=== PATIENT | male | born 1985 | race Caucasian/White ===

== ENCOUNTER 2016-09-11 08:26 | Day surgery (SDC) | payer MEDICAID, OTHER ==
[~2016-09-11] VITALS: Ht 193 cm; Wt 77.7 kg
[~2016-09-11 08:26] MED LIST: APIX2.5T PO; FERR325T PO; NORC5TAB PO; PROM2INJ; PROT40TA PO; VENTAER INH; ZANT150T2 PO; ZOFR4TAB PO; ZOLO100T PO
[2016-09-11 08:50] VITALS: BP 130/78; PULSE 97; RESP 20; TEMP 97.9; O2SAT 99
[2016-09-11] MEDS ORDERED: UNIS25TA2 PO ×2 (08:53→08:59)
[2016-09-11] MEDS ORDERED: MULT-135 PO ×2 (08:53→08:59)
[2016-09-11] MEDS ORDERED: NAPR220T95 PO ×2 (08:53→08:59)
[2016-09-11] MEDS ORDERED: FERR325T PO (08:59)
[2016-09-11] MEDS ORDERED: VENTAER INH (08:59)
[2016-09-11] MEDS ORDERED: NORC5TAB PO (08:59)
[2016-09-11] MEDS ORDERED: APIX2.5T PO (08:59)
[2016-09-11] MEDS ORDERED: PROM25TA5 INJ (09:01)
[2016-09-11] MEDS ORDERED: PROT40TA PO (09:01)
[2016-09-11] MEDS ORDERED: SERT-129 PO (09:01)
[2016-09-11] MEDS ORDERED: ZOFR4TAB PO (09:01)
[2016-09-11 09:53] LABS: APTT (PATIENT) 31.5 SEC (24.3-30.1); PROTHROMBIN TIME - PATIENT 11.4 SEC (9.8-11.6)
[2016-09-11] MEDS ORDERED: POVIDONE IODINE 5% (ANTISEPSIS KIT) 4 APPLICATIONS EACH NARE SCH ×2 (10:00)
[2016-09-11] MEDS ORDERED: CHLORHEXIDINE GLUCONATE 2 % 1 PACK (2 CLOTHS) TOPICAL SCH ×2 (10:00)
[2016-09-11] MEDS ORDERED: ceFAZolin 2 GM PREMIX 50 ML - implanted port/tunneled catheter insertion IV SCH ×2 (10:00)
[2016-09-11] MEDS ORDERED: SODIUM CHLORIDE 0.9% 1000 ML IV SCH ×2 (10:00)
[2016-09-11] MEDS ORDERED: VANCOMYCIN 1000 MG/NS 250 ML - implanted port/tunneled catheter IV SCH ×4 (10:00)
[2016-09-11] MEDS ORDERED: MIDAZOLAM HCL 5 MG/5 ML VIAL ONE (10:26)
[2016-09-11] MEDS ORDERED: fentaNYL CITRATE 250 MCG/5 ML AMP ONE (10:27)
[2016-09-11] MEDS ORDERED: LIDOCAINE 1%/EPINEPHrine 1:100,000 SOLN 20 ML VIAL ONE (10:45)
[2016-09-11] MEDS ORDERED: MIDAZOLAM HCL 2 MG/2 ML VIAL ONE (11:10)
[2016-09-11 12:15] VITALS: BP 131/81; PULSE 107; RESP 20; TEMP 98; O2SAT 98
--- NOTE | 2016-09-11 12:15 | PD.RAD ---
Post Procedure Progress Note Pre Procedure Diagnosis: (1) Mass of upper lobe of right lung (2) Mediastinal mass Post Procedure Diagnosis: (1) Mass of upper lobe of right lung (2) Mediastinal mass Procedure Date: Sep 11, 2016 Supervising Radiologist: Pito Fernandes Proceduralist/Assist: RT Ryley(R)() Anesthesia: Local, Conscious Sedation Plan of Activity Patient to Unit: ROPU Patient Condition: Good See PACS Report for procedural detail/treatment Pito Fernandes MD Sep 11, 2016 12:15
[2016-09-11] MEDS ORDERED: IOHEXOL 350 MG/ML 50 ML BTL (for RAD DIAG) IV ONE (12:22)
[2016-09-11 12:30] VITALS: BP 138/74; PULSE 104; RESP 20; O2SAT 98
[2016-09-11 12:45] VITALS: BP 108/62; PULSE 104; RESP 20; O2SAT 98
[2016-09-11 13:15] VITALS: BP 121/77; PULSE 105; RESP 20; O2SAT 98
[2016-09-11 13:54] VITALS: BP 117/70; PULSE 102; RESP 20; O2SAT 99
--- NOTE | 2016-09-11 14:21 | RADRPT ---
EXAM DATE/TIME: 09/11/2016 10:24 [facility] COMPARISON: No previous studies available for comparison. INDICATIONS : Patient with a history of lung cancer, needs chemotherapy. 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 Vancomycin within 2 hours of procedure, Ancef (or alternative) within 1 hour of procedure. DEVICE: 1. 8 Kazakh single lumen Bard Power Port PROCEDURE : 1. Continuous pulse oximetry and EKG monitoring. 2. Intravenous conscious sedation. 3. Ultrasound guidance for venous access. 4. Fluoroscopic guided implantable central venous port placement. The patient was placed supine. The neck was prepped in sterile fashion. Full sterile technique was u sed, including cap, mask, sterile gloves and gown, and a large sterile sheet. Hand hygiene and 2% ch lorhexidine Betadine was utilized per protocol for cutaneous antisepsis with appropriate dry time for site. The skin and subcutaneous tissues were infiltrated with local anesthetic solution. Under direct ultrasound guidance, central venous access was accomplished in the left internal jugular vein. A wire or catheter could not be advanced into the brachiocephalic vein, superior vena cava or right atrium. A venogram performed demonstrates central venous occlusion of the left brachiocephalic vein and superior vena cava. The venogram demonstrated an enlarged left-sided internal mammary vein w hich was selectively catheterized. With no other venous access available the port tubing was placed i nto the enlarged internal mammary vein. The ultrasound images depicting access guidance were stored a nd saved to PACS for permanent record. A subcutaneous pocket was created using blunt dissection. Th e port was introduced to the pocket. The catheter tubing was fed through a subcutaneous tunnel to th e venotomy site. The catheter tubing was cut to a suitable length and then was introduced through a valved Peel-Away sheath and positioned with catheter tubing tip in the mid to distal left internal ma mmary vein. The port was then tested for access. Blood was easily aspirated and the port was easily f lushed with saline. The pocket incision was closed with subcuticular Vicryl suture. Steri-Strips wer e applied. The port was flushed and locked with heparin solution per protocol. Sterile dressing was applied to the site. The patient tolerated the procedure well. Conscious sedation was performed with the prescribed dosages and duration as above. The patient cirilo ated the procedure well and there were no complications. EKG and oximetry remained stable throughout the procedure. The patient was sent to post anesthesia recovery in stable condition. CONCLUSION: Uncomplicated ultrasound and fluoroscopic guided implanted central venous port catheter placement as described in detail above. An 8 Kazakh Power port was placed. Venogram demonstrates central venous occlusion. Tip of port was placed in an enlarged left internal mammary vein. Port aspirated and flushed easily following the procedure. Pito Fernandes MD on September 11, 2016 at 14:06 Board Certified Radiologist. This report was verified electronically.
== END 2016-09-11 14:15 | disposition home or self-care (01) ==
LOC: HROP 08:26 → HRIP 08:28 → HROP 14:15
PROVIDERS: ATTEND Internal Medicine Hematology & Oncology
DX: Z45.2 Encounter for adjustment and management of vascular access device (principal); C34.11 Malignant neoplasm of upper lobe, right bronchus or lung; J45.909 Unspecified asthma, uncomplicated
CPT/HCPCS: 36561; 76937; 77001; 85610; 85730; 99152; 99153; C1769; C1788; C1887; J0690; J1642; J2250; J3010; J3370; J7030; J7050; Q9967

== ENCOUNTER 2016-09-26 07:45 | Day surgery (SDC) | payer MEDICAID, OTHER ==
[~2016-09-26] VITALS: Ht 193 cm; Wt 77.0 kg
[~2016-09-26 07:45] MED LIST changes: +MULT-135 PO; +NAPR220T95 PO; +PROM25TA5 INJ; -PROM2INJ; +SERT-129 PO; +UNIS25TA2 PO; -ZANT150T2 PO; -ZOLO100T PO
[2016-09-26 07:56] VITALS: BP 131/69; PULSE 92; RESP 20; TEMP 98.1; O2SAT 99
[2016-09-26] MEDS ORDERED: SODIUM CHLOR 0.9% 1000 ML IV SCH (08:30)
[2016-09-26 08:48] LABS: AUTOMATED NEUTROPHIL # 3.5 TH/MM3 (1.8-7.7); BASOPHIL % 0.3 % (0.0-2.0); EOSINOPHIL # 0.1 TH/MM3 (0-0.4); EOSINOPHIL % 2.3 % (0.0-4.0); HEMATOCRIT 30.7 % (39.0-51.0); HEMO FLAGS DIFF FINAL; LYMPH % 8.7 % (9.0-44.0); LYMPHOCYTE # 0.4 TH/MM3 (1.0-4.8); MEAN CELL VOLUME 88.3 FL (80.0-100.0); MEAN CORPUSCULAR HEMOGLOBIN 30.6 PG (27.0-34.0); MEAN CORPUSCULAR HGB CONC 34.7 % (32.0-36.0); MONO % 14.2 % (0.0-8.0); NEUT % 74.5 % (16.0-70.0); PLATELET COUNT 318 TH/MM3 (150-450); RED BLOOD COUNT 3.47 MIL/MM3 (4.50-5.90); RED CELL DISTRIBUTION WIDTH 17.9 % (11.6-17.2); WHITE BLOOD COUNT 4.7 TH/MM3 (4.0-11.0)
[2016-09-26 08:57] LABS: APTT (PATIENT) 31.9 SEC (24.3-30.1); PROTHROMBIN TIME - PATIENT 11.5 SEC (9.8-11.6)
[2016-09-26] MEDS ORDERED: LIDOCAINE 1%/EPINEPHrine 1:100,000 SOLN 20 ML VIAL ONE (09:27)
[2016-09-26] MEDS ORDERED: MIDAZOLAM HCL 5 MG/5 ML VIAL ONE (09:46)
[2016-09-26] MEDS ORDERED: fentaNYL CITRATE 250 MCG/5 ML AMP ONE (09:47)
--- NOTE | 2016-09-26 10:31 | PD.RAD ---
Post CT Procedure Prog Note Pre Procedure Diagnosis: (1) Mass of upper lobe of right lung (2) Adenocarcinoma Post Procedure Diagnosis: (1) Adenocarcinoma (2) Mass of upper lobe of right lung Procedure Date: Sep 26, 2016 Supervising Radiologist: Jimenez Srivastava Proceduralist/Assist: Angelika Anglin RT(R)(CT) Anesthesia: Local, Conscious Sedation Plan of Activity Patient to Unit: ROPU Patient Condition: Good See PACS Report for procedural detail/treatment Biopsy Imaging Guidance: CT Side: Left Biopsy Procedure: Soft Tissue Site: left 9th rib/chest wall mass Specimen: Core Biopsy Additional Detail: 16 Ga x 3 Jimenez Srivastava MD Sep 26, 2016 10:31
[2016-09-26 10:35] VITALS: BP 122/77; PULSE 102; RESP 16; TEMP 97.1; O2SAT 99
[2016-09-26 10:50] VITALS: BP 116/68; PULSE 93; RESP 16; O2SAT 98
[2016-09-26] MEDS ORDERED: oxyCODONE/ACETAMINOPHEN 5 MG/325 MG TAB PO PRN (11:00)
[2016-09-26 11:10] VITALS: BP 102/75; PULSE 102; RESP 16; O2SAT 99
--- NOTE | 2016-09-26 11:11 | RADRPT ---
EXAM DATE/TIME: 09/26/2016 10:01 [facility] COMPARISON: No previous studies available for comparison. INDICATIONS : Left 9th rib biopsy. SEDATION TIME: 30 minutes BIOPSY SITE: Left posterior ninth rib/chest wall soft tissue mass MEDICATION(S): 1.) 2 mg midazolam (Versed) IV 2.) 100 mcg fentanyl (Sublimaze) IV DEVICE(S): 1.) 16 gauge Temno core biopsy needle MEDICAL HISTORY : Carcinoma, lung. SURGICAL HISTORY : None. ENCOUNTER: Initial ACUITY: 1 day PAIN SCORE: 5/10 LOCATION: Left chest A total of three core specimen(s) were obtained and sent to the laboratory for pathologic evaluation. PROCEDURE: 1. CT guided lung biopsy. 2. Conscious sedation with continuous EKG and oximetry monitoring. 3. EKG and oximetry remained stable throughout the procedure. Prior to the procedure informed consent was obtained. Any appropriate prior imaging studies were rev iewed. The site was prepped in a sterile fashion. Full sterile technique was used, including cap, mask, mando rile gloves and gown and a large sterile sheet. Hand hygiene and 2% chlorhexidine and/or betadine/al cohol prep was utilized per protocol for cutaneous antisepsis. The skin and subcutaneous tissues wer e infiltrated with local anesthetic solution. With CT guidance the previously identified target was localized. Biopsy was performed using the presc ribed needle as above. Adequate hemostasis was obtained with compression at the puncture site. Follow-up CT scan reveals no hemorrhage. The patient tolerated the procedure well and there were no complications. The patient was returned to the Radiology Outpatient Unit in stable condition. CONCLUSION: Uncomplicated CT guided biopsy. Jimenez Srivastava MD on September 26, 2016 at 11:08 Board Certified Radiologist. This report was verified electronically.
[2016-09-26 11:30] VITALS: BP 108/75; PULSE 96; RESP 16; O2SAT 99
[2016-09-26 12:15] VITALS: BP 116/67; PULSE 89; RESP 18; O2SAT 100
[2016-09-26] MEDS ORDERED: Infusaport/Implanted VAD PRN NS Lock Flush IVF (12:45)
== END 2016-09-26 12:30 | disposition home or self-care (01) ==
LOC: HRIP 07:45 → HRAD 07:45 → EDSTATUS 08:00 → HRAD 12:30
PROVIDERS: ATTEND Internal Medicine Hematology & Oncology
DX: C79.51 Secondary malignant neoplasm of bone (principal); C34.90 Malignant neoplasm of unspecified part of unspecified bronchus or lung; Z79.01 Long term (current) use of anticoagulants
CPT/HCPCS: 20225; 77012; 85025; 85610; 85730; 88305; 99152; 99153; J1642; J2250; J3010

== ENCOUNTER 2016-10-24 12:57 | Day surgery (SDC) | payer MEDICAID, OTHER ==
[2016-10-24 13:13] VITALS: BP 114/73; PULSE 75; RESP 20; TEMP 97.6; O2SAT 99
[2016-10-24] MEDS ORDERED: ALTEPLASE RECOMBINANT 2 MG VIAL ONE (14:26)
[2016-10-24] MEDS ORDERED: IOHEXOL 350 MG/ML 50 ML BTL (for RAD DIAG) IV ONE (14:31)
--- NOTE | 2016-10-24 14:37 | PD.RAD ---
Post Procedure Progress Note Pre Procedure Diagnosis: (1) Mass of upper lobe of right lung Post Procedure Diagnosis: (1) Mass of upper lobe of right lung Procedure Date: Oct 24, 2016 Supervising Radiologist: Pito Fernandes Proceduralist/Assist: Del Armenta, RT(R), Giovanna Devine RT(R)(CV) Plan of Activity Patient to Unit: ROPU Patient Condition: Fair See PACS Report for procedural detail/treatment Central Venous Access Device Procedure 1 Left Infusaport Evaluation single lumen Lao: 8 Pito Fernandes MD Oct 24, 2016 14:37
--- NOTE | 2016-10-24 17:47 | RADRPT ---
EXAM DATE/TIME: 10/24/2016 13:16 [facility] COMPARISON: No previous studies available for comparison. INDICATIONS : Patient presents with lung cancer in need of port patency injection due to inability for blood return . 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 Access of [id number]. 2. Port patency injection. The risks, benefits and alternatives to the procedure were explained and verbal and written consent w as obtained. The patient was placed supine. The port was prepped in sterile fashion. Full sterile t echnique was used, including cap, mask, sterile gloves and gown, and a large sterile sheet. Hand hyg iene and 2% chlorhexidine prep was utilized per protocol for cutaneous antisepsis with appropriate dr y time for site. The previously placed port was accessed and positive contrast was injected for evaluation. Injection demonstrates intraluminal location of the Fsbkap-m-Vlzv however there is evidence of filling defect surrounding the catheter characteristic of thrombus or developing fibrin sheath. 2 mg of cath-shana was administered CONCLUSION: Fnkgxk-o-Asaz remains intraluminal in location however fibrin sheath versus thrombus is identified surrounding the tip of the catheter. Good distal flow was identified during the injecti on. Port was treated with Cathflo Pito Fernandes MD on October 24, 2016 at 17:42 Board Certified Radiologist. This report was verified electronically.
== END 2016-10-24 15:50 | disposition home or self-care (01) ==
LOC: HROP 12:57 → HRIP 12:58 → HROP 15:50
PROVIDERS: ATTEND Internal Medicine Hematology & Oncology
DX: Z45.2 Encounter for adjustment and management of vascular access device (principal); C34.90 Malignant neoplasm of unspecified part of unspecified bronchus or lung; C79.51 Secondary malignant neoplasm of bone; G91.9 Hydrocephalus, unspecified; J45.909 Unspecified asthma, uncomplicated; K21.9 Gastro-esophageal reflux disease without esophagitis; F32.9 Major depressive disorder, single episode, unspecified; F41.9 Anxiety disorder, unspecified
CPT/HCPCS: 36598; J1642; J2997; Q9967

== ENCOUNTER 2016-11-03 17:55 | Emergency (ER) | payer MEDICAID, OTHER ==
[~2016-11-03] VITALS: Ht 193 cm; Wt 80.0 kg
[2016-11-03 17:56] VITALS: BP 141/78; PULSE 92; RESP 18; TEMP 98.5; O2SAT 98
[2016-11-03 18:22] VITALS: BP 131/82; PULSE 83; RESP 15; O2SAT 98
[2016-11-03] MEDS ORDERED: SODIUM CHLORIDE 0.9% FLUSH 10 ML FLUSH IVF PRN (18:30)
--- NOTE | 2016-11-03 18:35 | PD ---
HPI Chief Complaint: Chest Pain Time Seen by Provider: 18:26 Travel History International Travel<30 days: No Contact w/Intl Traveler<30days: No Traveled to known affect area: No History of Present Illness HPI 31-year-old male with history of stage IV adenocarcinoma lung cancer, presents to the ER sent in by his oncologist, Dr. Coughlin, for evaluation of a few days history of chest pains which she currently rates it a 2 out of 10. Worse with exertion and movements, states that he it gets up to a 6 out of 10 at times. He complains of dyspnea on exertion. He denies any coughing, fevers, or any other symptoms. He states the chest pain started in the left side and then moved over to the right side. Modifying Factors: Worse with exertion Associated Signs & Symptoms: Shortness of breath and chest pain Risk Factors: Lung cancer history PFSH Past Medical History Anxiety: Yes Depression: Yes Cancer: No Cardiovascular Problems: No Chemotherapy: Yes (OCTOBER 20, 2016) Diabetes: No Diminished Hearing: No Endocrine: No Genitourinary: No Hiatal Hernia: No Immune Disorder: No Musculoskeletal: No Neurologic: Yes (HYDROCEPHALIS) Psychiatric: Yes Reproductive: No Respiratory: Yes (POSSIBLE ASTHMA) Immunizations Current: Yes Radiation Therapy: Yes Thyroid Disease: No Influenza Vaccination: Yes Past Surgical History Abdominal Surgery: No AICD: No Body Medical Devices: [employer]GER SHUNT Cardiac Surgery: No Ear Surgery: No Eye Surgery: No Genitourinary Surgery: No Gynecologic Surgery: No Joint Replacement: No 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 Oxycodone (Oxycodone HCl) 5 Mg Cap 5 Mg PO Q4H PRN Ms Contin (Morphine Sulfate) 30 Mg Tab 30 Mg PO BID Sertraline (Sertraline HCl) 100 Mg Tab 100 Mg PO DAILY Phenergan (Promethazine HCl) 25 Mg Tab 25 Mg INJ Q6H PRN Protonix (Pantoprazole Sodium) 40 Mg Tab 40 Mg PO DAILY Zofran (Ondansetron HCl) 4 Mg Tab 4 Mg PO Q6HR PRN Aleve (Naproxen Sodium) 220 Mg Tab 220 Mg PO BID PRN Multi Vitamin (Multiple Vitamin) 1 Tab Tab 1 Tab PO DAILY Ferrous Sulfate 325 Mg Tab 325 Mg PO TID Unisom (Doxylamine Succinate (Sleep)) 25 Mg Tab 25 Mg PO HS PRN Eliquis (Apixaban) 2.5 Mg Tab 2.5 Mg PO BID Ventolin Hfa 18 GM Inh (Albuterol Sulfate) 90 Mcg/Act Aer 2 Puff INH Q4-6H PRN Review of Systems Except as stated in HPI: all other systems reviewed are Neg Physical Exam Narrative GENERAL: Thin middle age white male patient currently not in acute distress. Awake and oriented 3. SKIN: Warm and dry. HEAD: Atraumatic. Normocephalic. EYES: Pupils equal and round. No scleral icterus. No injection or drainage. ENT: No nasal bleeding or discharge. Mucous membranes pink and moist. NECK: Trachea midline. No JVD. CARDIOVASCULAR: Regular rate and rhythm. No murmur appreciated. Pulses are present and equal bilaterally. RESPIRATORY: No accessory muscle use. Clear to auscultation. Breath sounds equal bilaterally. GASTROINTESTINAL: Abdomen soft, non-tender, nondistended. Hepatic and splenic margins not palpable. MUSCULOSKELETAL: No obvious deformities. No clubbing. No cyanosis. No edema. NEUROLOGICAL: Awake and alert. No obvious cranial nerve deficits. Motor grossly within normal limits. Normal speech. PSYCHIATRIC: Appropriate mood and affect; insight and judgment normal. Data Data Last Documented VS Vital Signs Date Time Temp Pulse Resp B/P Pulse Ox O2 Delivery O2 Flow Rate FiO2 11/03/16 21:35 88 17 130/89 96 11/03/16 18:22 Room Air 11/03/16 17:56 98.5 Orders Electrocardiogram (11/03/16 ) Basic Metabolic Panel (Bmp) (11/03/16 18:26) B-Type Natriuretic Peptide (11/03/16 18:26) Ckmb (Isoenzyme) Profile (11/03/16 18:26) Complete Blood Count With Diff (11/03/16 18:26) Magnesium (Mg) (11/03/16 18:26) Prothrombin Time / Inr (Pt) (11/03/16 18:26) Act Partial Throm Time (Ptt) (11/03/16 18:26) Troponin I (11/03/16 18:26) Chest, Single Ap (11/03/16 18:26) Ecg Monitoring (11/03/16 18:26) Bilateral Bp Monitoring (11/03/16 18:26) Iv Access Insert/Monitor (11/03/16 18:26) Oximetry (11/03/16 18:26) Oxygen Administration (11/03/16 18:26) Sodium Chloride 0.9% Flush (Ns Flush) (11/03/16 18:30) Ct Pulmonary Angiogram (11/03/16 18:57) Iohexol 350 Inj (Omnipaque 350 Inj) (11/03/16 20:02) Labs Laboratory Tests Test 11/03/16 18:35 White Blood Count 3.3 TH/MM3 Red Blood Count 3.53 MIL/MM3 Hemoglobin 10.6 GM/DL Hematocrit 30.7 % Mean Corpuscular Volume 86.9 FL Mean Corpuscular Hemoglobin 29.9 PG Mean Corpuscular Hemoglobin 34.4 % Concent Red Cell Distribution Width 14.7 % Platelet Count 150 TH/MM3 Mean Platelet Volume 8.5 FL Neutrophils (%) (Auto) 68.6 % Lymphocytes (%) (Auto) 10.2 % Monocytes (%) (Auto) 18.2 % Eosinophils (%) (Auto) 2.9 % Basophils (%) (Auto) 0.1 % Neutrophils # (Auto) 2.3 TH/MM3 Lymphocytes # (Auto) 0.3 TH/MM3 Monocytes # (Auto) 0.6 TH/MM3 Eosinophils # (Auto) 0.1 TH/MM3 Basophils # (Auto) 0.0 TH/MM3 CBC Comment DIFF FINAL Differential Comment Prothrombin Time 11.8 SEC Prothromb Time International 1.1 RATIO Ratio Activated Partial 31.6 SEC Thromboplast Time Sodium Level 140 MEQ/L Potassium Level 3.8 MEQ/L Chloride Level 105 MEQ/L Carbon Dioxide Level 27.0 MEQ/L Anion Gap 8 MEQ/L Blood Urea Nitrogen 16 MG/DL Creatinine 0.74 MG/DL Estimat Glomerular Filtration 122 ML/MIN Rate Random Glucose 61 MG/DL Calcium Level 9.1 MG/DL Magnesium Level 2.0 MG/DL Total Creatine Kinase 41 U/L Troponin I LESS THAN 0.02 NG/ML B-Type Natriuretic Peptide 66 PG/ML MDM Medical Decision Making Medical Screen Exam Complete: Yes Emergency Medical Condition: Yes Medical Record Reviewed: Yes Interpretation(s) EKG shows NSR, no ST elevation or depression, and no arrhythmias. No significant T-wave inversions. Differential Diagnosis Chest pain and dyspnea on exertionworsening lung cancer versus ACS versus dysrhythmias versus pneumonia Narrative Course X-rays, EKG, lab workup was ordered for the patient. Physician Communication Physician Communication Case is signed out to Dr. Manzo at 7 PM awaiting workup for disposition. Diagnosis Primary Impression: Metastatic lung cancer (metastasis from lung to other site) Qualified Code: C34.90 - Metastatic lung cancer (metastasis from lung to other site), unspecified laterality Admitting Information Admitting Physician Requests: Admit Prasanth Preston MD Nov 03, 2016 18:35
[2016-11-03] MEDS ORDERED: OXYC1CAP PO (18:49)
[2016-11-03] MEDS ORDERED: FOLI400T PO (18:49)
[2016-11-03] MEDS ORDERED: MIRA33504 PO (18:49)
[2016-11-03] MEDS ORDERED: MS C30TA PO (18:49)
[2016-11-03 19:15] LABS: AUTOMATED NEUTROPHIL # 2.3 TH/MM3 (1.8-7.7); BASOPHIL % 0.1 % (0.0-2.0); EOSINOPHIL # 0.1 TH/MM3 (0-0.4); EOSINOPHIL % 2.9 % (0.0-4.0); HEMATOCRIT 30.7 % (39.0-51.0); HEMO FLAGS DIFF FINAL; LYMPH % 10.2 % (9.0-44.0); LYMPHOCYTE # 0.3 TH/MM3 (1.0-4.8); MEAN CELL VOLUME 86.9 FL (80.0-100.0); MEAN CORPUSCULAR HEMOGLOBIN 29.9 PG (27.0-34.0); MEAN CORPUSCULAR HGB CONC 34.4 % (32.0-36.0); MONO % 18.2 % (0.0-8.0); NEUT % 68.6 % (16.0-70.0); PLATELET COUNT 150 TH/MM3 (150-450); RED BLOOD COUNT 3.53 MIL/MM3 (4.50-5.90); RED CELL DISTRIBUTION WIDTH 14.7 % (11.6-17.2); WHITE BLOOD COUNT 3.3 TH/MM3 (4.0-11.0)
[2016-11-03 19:21] LABS: ANION GAP 8 MEQ/L (5-15); BLOOD UREA NITROGEN 16 MG/DL (7-18); CHLORIDE 105 MEQ/L (98-107); GLOMERULAR FILTRATION RATE 122 ML/MIN (>89); POTASSIUM 3.8 MEQ/L (3.5-5.1); SODIUM (NA) 140 MEQ/L (136-145)
[2016-11-03 19:25] LABS: CREATINE KINASE 41 U/L (39-308)
--- NOTE | 2016-11-03 19:27 | RADRPT ---
EXAM DATE/TIME: 11/03/2016 18:43 [facility] COMPARISON: [id number] PLCMT, POWERPORT, W US, RIGHT, September 11, 2016, 10:24. CT SIMULATION, September 25 7, 13:15. CHEST SINGLE AP, May 18, 2016, 9:48. INDICATIONS : Chest pain. MEDICAL HISTORY : None. SURGICAL HISTORY : None. ENCOUNTER: Initial ACUITY: 1 day PAIN SCORE: 4/10 LOCATION: chest FINDINGS: Mild reticular parenchymal density is seen in the right superhilar region and right apex with some sl ight pleural thickening suspected. There appears to be some volume loss. Contralateral left lung is g rossly clear. Heart size is stable and normal. Chest port is present on the left with tip extending i nto the mammary vein. CONCLUSION: Abnormal chest appearance as above Jimenez Srivastava MD on November 03, 2016 at 19:20 Board Certified Radiologist. This report was verified electronically.
[2016-11-03 19:34] LABS: APTT (PATIENT) 31.6 SEC (24.3-30.1); INTERNATIONAL NORMALIZED RATIO 1.1 RATIO; PROTHROMBIN TIME - PATIENT 11.8 SEC (9.8-11.6)
[2016-11-03] MEDS ORDERED: IOHEXOL 350 MG/ML 10 ML VIAL (for RAD DIAG) IV ONE (20:02)
--- NOTE | 2016-11-03 20:34 | PD ---
Physical Exam Narrative Patient was seen by ED physician and signed out to me. Data Data Last Documented VS Vital Signs Date Time Temp Pulse Resp B/P Pulse Ox O2 Delivery O2 Flow Rate FiO2 11/03/16 18:22 83 15 131/82 98 Room Air 11/03/16 17:56 98.5 Orders Electrocardiogram (11/03/16 ) Basic Metabolic Panel (Bmp) (11/03/16 18:26) B-Type Natriuretic Peptide (11/03/16 18:26) Ckmb (Isoenzyme) Profile (11/03/16 18:26) Complete Blood Count With Diff (11/03/16 18:26) Magnesium (Mg) (11/03/16 18:26) Prothrombin Time / Inr (Pt) (11/03/16 18:26) Act Partial Throm Time (Ptt) (11/03/16 18:26) Troponin I (11/03/16 18:26) Chest, Single Ap (11/03/16 18:26) Ecg Monitoring (11/03/16 18:26) Bilateral Bp Monitoring (11/03/16 18:26) Iv Access Insert/Monitor (11/03/16 18:26) Oximetry (11/03/16 18:26) Oxygen Administration (11/03/16 18:26) Sodium Chloride 0.9% Flush (Ns Flush) (11/03/16 18:30) Ct Pulmonary Angiogram (11/03/16 18:57) Iohexol 350 Inj (Omnipaque 350 Inj) (11/03/16 20:02) Labs Laboratory Tests Test 11/03/16 18:35 White Blood Count 3.3 TH/MM3 Red Blood Count 3.53 MIL/MM3 Hemoglobin 10.6 GM/DL Hematocrit 30.7 % Mean Corpuscular Volume 86.9 FL Mean Corpuscular Hemoglobin 29.9 PG Mean Corpuscular Hemoglobin 34.4 % Concent Red Cell Distribution Width 14.7 % Platelet Count 150 TH/MM3 Mean Platelet Volume 8.5 FL Neutrophils (%) (Auto) 68.6 % Lymphocytes (%) (Auto) 10.2 % Monocytes (%) (Auto) 18.2 % Eosinophils (%) (Auto) 2.9 % Basophils (%) (Auto) 0.1 % Neutrophils # (Auto) 2.3 TH/MM3 Lymphocytes # (Auto) 0.3 TH/MM3 Monocytes # (Auto) 0.6 TH/MM3 Eosinophils # (Auto) 0.1 TH/MM3 Basophils # (Auto) 0.0 TH/MM3 CBC Comment DIFF FINAL Differential Comment Prothrombin Time 11.8 SEC Prothromb Time International 1.1 RATIO Ratio Activated Partial 31.6 SEC Thromboplast Time Sodium Level 140 MEQ/L Potassium Level 3.8 MEQ/L Chloride Level 105 MEQ/L Carbon Dioxide Level 27.0 MEQ/L Anion Gap 8 MEQ/L Blood Urea Nitrogen 16 MG/DL Creatinine 0.74 MG/DL Estimat Glomerular Filtration 122 ML/MIN Rate Random Glucose 61 MG/DL Calcium Level 9.1 MG/DL Magnesium Level 2.0 MG/DL Total Creatine Kinase 41 U/L Troponin I LESS THAN 0.02 NG/ML B-Type Natriuretic Peptide 66 PG/ML MDM Supervised Visit with MAGDY: No Interpretation(s) Last Impressions Chest X-Ray 11/03/166 Signed Impressions: Service Date/Time: Thursday, November 03, 2016 18:43 - CONCLUSION: Abnormal chest appearance as above Jimenez Srivastava MD 2031 PM. CBC WBC 3.3. Hemoglobin 10.6. Hematocrit 30.7. Normal differential. BMP within normal limit. Cardiac enzymes are normal. BNP 66. INR 1.1. 2050 PM. Narrative Course Patient was seen by ED physician and signed out to me. Diagnosis Primary Impression: Atypical chest pain Additional Impression: Metastatic lung cancer (metastasis from lung to other site) Qualified Code: C34.90 - Metastatic lung cancer (metastasis from lung to other site), unspecified laterality Patient Instructions: General Instructions Additional Instruction: Continue with medications as directed. Follow-up with personal physician. Return if worse. Return if increasing chest pain or shortness of breath. Med/Other Pt SpecificInfo: No Change to Meds Disposition: 01 DISCHARGE HOME Condition: Stable Zheng Manzo MD Nov 03, 2016 20:34
--- NOTE | 2016-11-03 20:38 | RADRPT ---
EXAM DATE/TIME: 11/03/2016 19:53 [facility] COMPARISON: CT SIMULATION, September 25, 2016, 13:15. INDICATIONS : Chest pressure and dyspnea; patient with lung cancer. IV CONTRAST: 70 cc Omnipaque 350 (iohexol) IV RADIATION DOSE: 7.62 CTDIvol (mGy) MEDICAL HISTORY : Carcinoma, lung. SURGICAL HISTORY : None. ENCOUNTER: Initial ACUITY: 1 day PAIN SCALE: 0/10 LOCATION: chest TECHNIQUE: Volumetric scanning of the chest was performed using a pulmonary embolism protocol MIP images were re constructed. Using automated exposure control and adjustment of the mA and/or kV according to patien t size, radiation dose was kept as low as reasonably achievable to obtain optimal diagnostic quality images. FINDINGS: PULMONARY ARTERIES: The right main pulmonary artery is stenotic associated with a central mediastinal mass or confluent a denopathy. There is about 50% stenosis of the vessel. There is no evidence of filling defect to indic ate pulmonary embolism. LUNGS: A partially necrotic pleural-based mass in the anterolateral right lung apex is similar to prior appe arance. Patchy parenchymal densities elsewhere in the right lung are also similar to prior hardware t here are a few new areas of nodular density and a new area of infiltrate is present in the posterior medial right lower lobe. In the contralateral left lung, mild atelectasis is present adjacent to a ch est wall mass posteriorly in the mid to lower lung zone. There are changes of bullous emphysema bilat erally, mainly upper lung zone subpleural blebs and mild bronchiectasis is occasionally noted. PLEURAE: There is no pleural thickening or pleural effusion. MEDIASTINUM: Confluent adenopathy is present throughout the mediastinum involving the pretracheal, precarinal, AP window and subcarinal regions. There is nodule or pericardial thickening which is likely malignant. T he innominate vein and superior vena cava are occluded and there is shunting of injected contrast fro m the left arm through multiple upper chest, pericardial and paraspinal collateral vessels and into t he azygos system. MUSCULOSKELETAL: Large posterior medial left chest wall mass involving ribs and spine, similar to prior. MISCELLANEOUS: Prominent enlargement of the adrenal glands, similar to prior. CONCLUSION: Central mediastinal mass/confluent adenopathy is compressing the right pulmonary artery. There is no evidence of pulmonary embolism. Extensive malignant disease as described in detail above Jimenez Srivastava MD on November 03, 2016 at 20:24 Board Certified Radiologist. This report was verified electronically.
[2016-11-03 21:35] VITALS: BP 130/89
--- NOTE | 2016-11-04 17:02 | EKG ---
Date Performed: 11/03/2016 Time Performed: 18:27:00 PTAGE: 31 years EKG: Sinus rhythm NONSPECIFIC T-WAVE ABNORMALITY Compared to previous tracing, nonspecific ST-T wave changes have repl aced ST changes suggestive of pericarditis BORDERLINE ECG PREVIOUS TRACING : 05/18/2016 09.23 DOCTOR: Bang Bush Interpretating Date/Time 11/04/2016 17:02:35
== END 2016-11-03 21:35 | disposition home or self-care (01) ==
LOC: NEPE 17:55
DX: R07.89 Other chest pain (principal); C34.90 Malignant neoplasm of unspecified part of unspecified bronchus or lung
CPT/HCPCS: 71010; 71275; 80048; 82550; 83735; 83880; 84484; 85025; 85610; 85730; 93005; 99285; Q9967

== ENCOUNTER 2016-12-02 20:21 | Inpatient (IN) | payer MEDICAID, OTHER ==
[~2016-12-02] VITALS: Ht 193 cm; Wt 68.0 kg
[~2016-12-02 20:21] MED LIST changes: +FOLI400T PO; +MIRA33504 PO; +MS C30TA PO; -NORC5TAB PO; +OXYC1CAP PO
[2016-12-02 20:23] VITALS: BP 147/81; PULSE 111; RESP 22; TEMP 99.1; O2SAT 98
[2016-12-02] MEDS ORDERED: AMBI5TAB PO (20:45)
[2016-12-02] MEDS ORDERED: SODIUM CHLORIDE 0.9% FLUSH 10 ML FLUSH IVF PRN (21:00)
[2016-12-02 21:22] VITALS: RESP 18; O2SAT 100
--- NOTE | 2016-12-02 21:33 | PD ---
HPI Chief Complaint: Respiratory Symptoms Time Seen by Provider: 20:42 Travel History International Travel<30 days: No Contact w/Intl Traveler<30days: No Traveled to known affect area: No History of Present Illness HPI 31-year-old male arrives by private vehicle due to sudden onset shortness of breath. He had been sitting around outdoors for several hours today. Upon standing up he became markedly dyspneic. It started about an hour prior to ER arrival. He reports a constant chest pain normal for him as he has suffered with adenocarcinoma of the lungs. He underwent chemotherapy 3 weeks ago as well as radiation therapy a few days ago. He follows with Dr. Hood of oncology. He is due to initiate chemotherapy next week. Most recent prior chemotherapy was 3-1/2 weeks ago. He states the chest pain has not changed in quality or severity. He's had no cough. He tried an inhaler at home which did not help very much. No fever. PFSH Past Medical History Anxiety: Yes Depression: Yes Cancer: Yes (lung stage 4) Cardiovascular Problems: No Chemotherapy: Yes (OCTOBER 20, 2016) Diabetes: No Diminished Hearing: No Endocrine: No Genitourinary: No Hiatal Hernia: No Immune Disorder: No Musculoskeletal: No Neurologic: Yes (HYDROCEPHALIS) Psychiatric: Yes Reproductive: No Respiratory: Yes (POSSIBLE ASTHMA) Immunizations Current: Yes Radiation Therapy: Yes Thyroid Disease: No Influenza Vaccination: Yes Past Surgical History Abdominal Surgery: No AICD: No Body Medical Devices: HELPER COORDIN[employer] SHUNT Cardiac Surgery: No Ear Surgery: No Eye Surgery: No Genitourinary Surgery: No Gynecologic Surgery: No Joint Replacement: No Neurologic Surgery: Yes (HELPER COORDINATOR SHUNT WITH REVISION AST IN 1991) Oral Surgery: No Pacemaker: No Thoracic Surgery: No Other Surgery: Yes (PYELONIDAL CYST REMOVAL) Social History Alcohol Use: No Tobacco Use: No (quit) Substance Use: No Allergies-Medications (Allergen,Severity, Reaction): Coded Allergies: No Known Allergies (Verified , 12/02/16) Reported Meds & Prescriptions Reported Meds & Active Scripts Active Reported Ambien (Zolpidem Tartrate) 5 Mg Tab 5 Mg PO HS PRN Folic Acid 400 Mcg Tab 400 Mcg PO DAILY Miralax Powder (Polyethylene Glycol 3350 Powder) 17 Gm Powd 17 Gm PO BID Mix and dissolve one measuring cap-ful (17 grams) in water or juice. Oxycodone (Oxycodone HCl) 5 Mg Cap 15 Mg PO Q4H PRN Ms Contin (Morphine Sulfate) 30 Mg Tab 45 Mg PO BID Sertraline (Sertraline HCl) 100 Mg Tab 100 Mg PO DAILY Phenergan (Promethazine HCl) 25 Mg Tab 25 Mg INJ Q6H PRN Protonix (Pantoprazole Sodium) 40 Mg Tab 40 Mg PO DAILY Zofran (Ondansetron HCl) 4 Mg Tab 4 Mg PO Q6HR PRN Aleve (Naproxen Sodium) 220 Mg Tab 220 Mg PO BID PRN Multi Vitamin (Multiple Vitamin) 1 Tab Tab 1 Tab PO DAILY Ferrous Sulfate 325 Mg Tab 325 Mg PO TID Unisom (Doxylamine Succinate (Sleep)) 25 Mg Tab 25 Mg PO HS PRN Eliquis (Apixaban) 2.5 Mg Tab 2.5 Mg PO BID Ventolin Hfa 18 GM Inh (Albuterol Sulfate) 90 Mcg/Act Aer 2 Puff INH Q4-6H PRN Review of Systems Except as stated in HPI: all other systems reviewed are Neg General / Constitutional: No: Fever Cardiovascular: Positive: Chest Pain or Discomfort (chronic), Diaphoresis, No : Palpitations Respiratory: Positive: Shortness of Breath Physical Exam Narrative GENERAL: 31-year-old male pleasant well-nourished well-developed mild distress SKIN: Warm. Minimal diaphoresis. HEAD: Atraumatic. Normocephalic. EYES: Pupils equal and round. No scleral icterus. No injection or drainage. ENT: No nasal bleeding or discharge. Mucous membranes pink and moist. NECK: Trachea midline. No JVD. CARDIOVASCULAR: Mild tachycardia. Regular rhythm. RESPIRATORY: The lungs are clear bilaterally. Work of breathing appears about normal. There is a left chest wall Chemoport. GASTROINTESTINAL: Abdomen soft, non-tender, nondistended. Hepatic and splenic margins not palpable. MUSCULOSKELETAL: No obvious deformities. No clubbing. No cyanosis. No edema. NEUROLOGICAL: Awake and alert. No obvious cranial nerve deficits. Motor grossly within normal limits. Normal speech. PSYCHIATRIC: Appropriate mood and affect; insight and judgment normal. Data Data Last Documented VS Vital Signs Date Time Temp Pulse Resp B/P Pulse Ox O2 Delivery O2 Flow Rate FiO2 12/02/16 21:22 100 Nasal Cannula 2 12/02/16 21:22 18 12/02/16 20:23 99.1 111 147/81 Vital signs reviewed Orders Complete Blood Count With Diff (12/02/16 20:54) Basic Metabolic Panel (Bmp) (12/02/16 20:54) Act Partial Throm Time (Ptt) (12/02/16 20:54) Prothrombin Time / Inr (Pt) (12/02/16 20:54) Iv Access Insert/Monitor (12/02/16 20:54) Electrocardiogram (12/02/16 20:54) Ecg Monitoring (12/02/16 20:54) Oximetry (12/02/16 20:54) Oxygen Administration (12/02/16 20:54) Ct Pulmonary Angiogram (12/02/16 20:54) Sodium Chloride 0.9% Flush (Ns Flush) (12/02/16 21:00) Troponin I (12/02/16 20:54) Iohexol 350 Inj (Omnipaque 350 Inj) (12/02/16 22:49) Admit Order (Ed Use Only) (12/02/16 23:23) Labs Laboratory Tests Test 12/02/16 21:10 White Blood Count 4.6 TH/MM3 Red Blood Count 3.71 MIL/MM3 Hemoglobin 11.0 GM/DL Hematocrit 31.7 % Mean Corpuscular Volume 85.5 FL Mean Corpuscular Hemoglobin 29.5 PG Mean Corpuscular Hemoglobin 34.6 % Concent Red Cell Distribution Width 18.3 % Platelet Count 337 TH/MM3 Mean Platelet Volume 7.6 FL Neutrophils (%) (Auto) 74.4 % Lymphocytes (%) (Auto) 6.2 % Monocytes (%) (Auto) 15.9 % Eosinophils (%) (Auto) 3.4 % Basophils (%) (Auto) 0.1 % Neutrophils # (Auto) 3.4 TH/MM3 Lymphocytes # (Auto) 0.3 TH/MM3 Monocytes # (Auto) 0.7 TH/MM3 Eosinophils # (Auto) 0.2 TH/MM3 Basophils # (Auto) 0.0 TH/MM3 CBC Comment DIFF FINAL Differential Comment Prothrombin Time 11.7 SEC Prothromb Time International 1.1 RATIO Ratio Activated Partial 34.7 SEC Thromboplast Time Sodium Level 136 MEQ/L Potassium Level 3.5 MEQ/L Chloride Level 103 MEQ/L Carbon Dioxide Level 24.3 MEQ/L Anion Gap 9 MEQ/L Blood Urea Nitrogen 11 MG/DL Creatinine 0.78 MG/DL Estimat Glomerular Filtration 115 ML/MIN Rate Random Glucose 85 MG/DL Calcium Level 8.6 MG/DL Troponin I LESS THAN 0.02 NG/ML MDM Medical Decision Making Medical Screen Exam Complete: Yes Emergency Medical Condition: Yes Medical Record Reviewed: Yes Differential Diagnosis PE, pneumonia, lung tumors, anemia, arrhythmia, pneumothorax Narrative Course CBC & BMP Diagram 12/02/16 21:10 Troponin less than 0.02 EKG: Rate 96, nonspecific ST changes with no acute injury pattern, normal axis and intervals Last [address] Angiography 12/02/162053 Signed Impressions: Service Date/Time: Friday, December 02, 2016 22:42 - CONCLUSION: 1. New finding on today's examination is a greater than 2 cm pneumothorax at the apex and anterior in the lower right chest. 2. No evidence of pulmonary embolism. 3. Other findings of malignancy are similar to prior examination including large mediastinal mass, right upper lung mass, destruction of the posterior medial left rib with significant soft tissue component, and obstruction of the superior vena cava with extensive collaterals. Vidal Rogers MD Small PTX on R. PTX not readily amenable to chest tube, pig tail or larger size chest tube. NRB started. [facility]. D/w Dr Bhatti. Diagnosis Primary Impression: Pneumothorax Qualified Code: J93.9 - Pneumothorax, unspecified type Admitting Information Admitting Physician Requests: Admit Additional Instructions: You have a choice when it comes to health care, and we are glad that you chose [facility]. Hopefully, we have met your expectations on today's visit. You are welcome to return to [facility] at any time, as we are committed to meeting the health care needs of our community. Disposition: 01 DISCHARGE HOME Condition: Stable Mihir Wyatt MD Dec 02, 2016 21:33
[2016-12-02 21:49] LABS: AUTOMATED NEUTROPHIL # 3.4 TH/MM3 (1.8-7.7); BASOPHIL % 0.1 % (0.0-2.0); EOSINOPHIL # 0.2 TH/MM3 (0-0.4); EOSINOPHIL % 3.4 % (0.0-4.0); HEMATOCRIT 31.7 % (39.0-51.0); HEMO FLAGS DIFF FINAL; LYMPH % 6.2 % (9.0-44.0); LYMPHOCYTE # 0.3 TH/MM3 (1.0-4.8); MEAN CELL VOLUME 85.5 FL (80.0-100.0); MEAN CORPUSCULAR HEMOGLOBIN 29.5 PG (27.0-34.0); MEAN CORPUSCULAR HGB CONC 34.6 % (32.0-36.0); MONO % 15.9 % (0.0-8.0); NEUT % 74.4 % (16.0-70.0); PLATELET COUNT 337 TH/MM3 (150-450); RED BLOOD COUNT 3.71 MIL/MM3 (4.50-5.90); RED CELL DISTRIBUTION WIDTH 18.3 % (11.6-17.2); WHITE BLOOD COUNT 4.6 TH/MM3 (4.0-11.0)
[2016-12-02 21:52] LABS: APTT (PATIENT) 34.7 SEC (24.3-30.1); INTERNATIONAL NORMALIZED RATIO 1.1 RATIO; PROTHROMBIN TIME - PATIENT 11.7 SEC (9.8-11.6)
[2016-12-02 22:27] LABS: ANION GAP 9 MEQ/L (5-15); BICARBONATE 24.3 MEQ/L (21.0-32.0); BLOOD UREA NITROGEN 11 MG/DL (7-18); CHLORIDE 103 MEQ/L (98-107); GLOMERULAR FILTRATION RATE 115 ML/MIN (>89); POTASSIUM 3.5 MEQ/L (3.5-5.1); SODIUM (NA) 136 MEQ/L (136-145)
[2016-12-02] MEDS ORDERED: IOHEXOL 350 MG/ML 10 ML VIAL (for RAD DIAG) IV ONE (22:49)
--- NOTE | 2016-12-02 23:07 | RADRPT ---
EXAM DATE/TIME: 12/02/2016 22:42 [facility] COMPARISON: CT PULMONARY ANGIOGRAM, November 03, 2016, 19:53. INDICATIONS : Shortness of breath; history of lung cancer. IV CONTRAST: 80 cc Omnipaque 350 (iohexol) IV RADIATION DOSE: 25.37 CTDIvol (mGy) MEDICAL HISTORY : Carcinoma, lung. SURGICAL HISTORY : None. ENCOUNTER: Initial ACUITY: 1 day PAIN SCALE: 0/10 LOCATION: chest TECHNIQUE: Volumetric scanning of the chest was performed using a pulmonary embolism protocol MIP images were re constructed. Using automated exposure control and adjustment of the mA and/or kV according to patien t size, radiation dose was kept as low as reasonably achievable to obtain optimal diagnostic quality images. 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 There were extensive collaterals in the mediastinum and in both the azygos and hemiazygos v eins. A right upper lobe mass is present as well as destruction of the medial posterior 9th rib with a greater than 5 cm soft tissue mass destroying the medial rib. There are also patchy areas of infi ltrate at the periphery of the right upper and right lower lobes. On today's examination, all the above findings are similar in appearance. There are no filling defec ts in the main pulmonary artery or segmental vessels. There is a new right pneumothorax both at the apex and medially which measures 2.9 cm. Pneumothorax is also seen in the anterior lower right chest measuring 2 cm in AP dimension. There is also a new focal area of infiltrate with irregular margins in the medial left upper lung measuring 1.8 cm. CONCLUSION: 1. New finding on today's examination is a greater than 2 cm pneumothorax at the apex and anterior in the lower right chest. 2. No evidence of pulmonary embolism. 3. Other findings of malignancy are similar to prior examination including large mediastinal mass, ri ght upper lung mass, destruction of the posterior medial left rib with significant soft tissue compon ent, and obstruction of the superior vena cava with extensive collaterals. Vidal Rogers MD on December 02, 2016 at 22:58 Board Certified Radiologist. This report was verified electronically.
[2016-12-02] MEDS ORDERED: SODIUM CHLOR 0.9% 1000 ML INJ 1,000 ML IV SCH (23:44)
[2016-12-02] MEDS ORDERED: TEMAZEPAM 15 MG CAP PO PRN (23:45)
[2016-12-02] MEDS ORDERED: CHLORHEXIDINE GLUCONATE 2 % 1 PACK (2 CLOTHS) TOP PRN (23:45)
[2016-12-02] MEDS ORDERED: LORazepam 2 MG/ML VIAL IV PRN (23:45)
[2016-12-02] MEDS ORDERED: MISCELLANEOUS NURSING INFORMATION XX SCH (23:45)
[2016-12-02] MEDS ORDERED: RESP: ALBUTEROL 2.5 MG/IPRATROPIUM 0.5 MG NEB (PRN) INH (23:45)
[2016-12-02] MEDS ORDERED: SODIUM CHLORIDE 0.9% FLUSH 10 ML FLUSH PRN (23:45)
[2016-12-02] MEDS ORDERED: ACETAMINOPHEN 325 MG TAB PO PRN (23:45)
--- NOTE | 2016-12-02 23:54 | HHI.HP ---
HPI Service Critical Care Medicine Primary Care Physician Cam Palacios MD Admission Diagnosis Spontaneous R PTX Diagnosis: Travel History International Travel<30 Days: No Contact w/Intl Traveler <30 Da: No Traveled to Known Affected Are: No History of Present Illness 31-year-old unfortunate very pleasant male presents due to sudden onset shortness of breath. 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 He had been sitting around outdoors for several hours today. Upon standing up he became markedly dyspneic. He reports a constant chest pain normal for him as he has suffered with carcinoma of the lungs. He underwent his last palliative chemotherapy 3 weeks ago as well as radiation therapy a few days ago. He follows with Dr. Hood of oncology. He is due to initiate chemotherapy next week. On the CT of the chest there is a small apical pneumothorax. The patient is admitted to ICU for a pneumothorax observation and follow-up chest x-ray. Review of Systems Constitutional: COMPLAINS OF: Diaphoretic episodes, DENIES: Fatigue, Fever, Weight gain, Weight loss, Chills, Dizziness, Change in appetite, Night Sweats Endocrine: DENIES: Heat/cold intolerance, Polydipsia, Polyuria, Polyphagia Eyes: DENIES: Blurred vision, Diplopia, Eye inflammation, Eye pain, Vision loss , Photosensitivity, Double Vision Ears, nose, mouth, throat: DENIES: Tinnitus, Hearing loss, Vertigo, Nasal discharge, Oral lesions, Throat pain, Hoarseness, Ear Pain, Running Nose, Epistaxis, Sinus Pain, Toothache, Odynophagia Respiratory: COMPLAINS OF: Shortness of breath, DENIES: Apneas, Cough, Snoring , Wheezing, Hemoptysis, Sputum production Cardiovascular: DENIES: Chest pain, Palpitations, Syncope, Dyspnea on Exertion , PND, Lower Extremity Edema, Orthopnea, Claudication Gastrointestinal: DENIES: Abdominal pain, Black stools, Bloody stools, Constipation, Diarrhea, Nausea, Vomiting, Difficulty Swallowing, Anorexia Genitourinary: DENIES: Sexual dysfunction, Urinary frequency, Urinary incontinence, Urgency, Hematuria, Dysuria, Nocturia, Penile Discharge, Testicular Pain, Testicular Swelling Musculoskeletal: DENIES: Joint pain, Muscle aches, Stiffness, Joint Swelling, Back pain, Neck pain Integumentary: DENIES: Abnormal pigmentation, Nail changes, Pruritus, Rash Hematologic/lymphatic: DENIES: Bruising, Lymphadenopathy Immunologic/allergic: DENIES: Eczema, Urticaria Neurologic: DENIES: Abnormal gait, Headache, Localized weakness, Paresthesias, Seizures, Speech Problems, Tremor, Poor Balance Psychiatric: DENIES: Anxiety, Confusion, Mood changes, Depression, Hallucinations, Agitation, Suicidal Ideation, Homicidal Ideation, Delusions Past Family Social History Allergies: Coded Allergies: No Known Allergies (Verified , 12/02/16) Past Medical History Hydrocephalus status post VPS 1984 Depressions Poorly differentiated non-small cell carcinoma of the lungs stage IV since July 2016 Past Surgical History [employer] shunt Reported Medications Reported Meds & Active Scripts Active Reported Ambien (Zolpidem Tartrate) 5 Mg Tab 5 Mg PO HS PRN Folic Acid 400 Mcg Tab 400 Mcg PO DAILY Miralax Powder (Polyethylene Glycol 3350 Powder) 17 Gm Powd 17 Gm PO BID Mix and dissolve one measuring cap-ful (17 grams) in water or juice. Oxycodone (Oxycodone HCl) 5 Mg Cap 15 Mg PO Q4H PRN Ms Contin (Morphine Sulfate) 30 Mg Tab 45 Mg PO BID Sertraline (Sertraline HCl) 100 Mg Tab 100 Mg PO DAILY Phenergan (Promethazine HCl) 25 Mg Tab 25 Mg INJ Q6H PRN Protonix (Pantoprazole Sodium) 40 Mg Tab 40 Mg PO DAILY Zofran (Ondansetron HCl) 4 Mg Tab 4 Mg PO Q6HR PRN Aleve (Naproxen Sodium) 220 Mg Tab 220 Mg PO BID PRN Multi Vitamin (Multiple Vitamin) 1 Tab Tab 1 Tab PO DAILY Ferrous Sulfate 325 Mg Tab 325 Mg PO TID Unisom (Doxylamine Succinate (Sleep)) 25 Mg Tab 25 Mg PO HS PRN Eliquis (Apixaban) 2.5 Mg Tab 2.5 Mg PO BID Ventolin Hfa 18 GM Inh (Albuterol Sulfate) 90 Mcg/Act Aer 2 Puff INH Q4-6H PRN Active Ordered Medications Current Medications Medications (Trade) Dose Ordered Sig/Ruma Route PRN Reason Start Time Stop Time Status Last Admin Dose Admin Sodium Chloride 2 ml 2 ml UNSCH PRN IVF FLUSH AFTER USING IV ACCESS 12/02/16 21:00 Sodium Chloride (NS 1000 ml Inj) 1,000 ml @ 84 mls/hr [id number] IV 12/02/16 23:44 Sodium Chloride (NS Flush) 2 ml UNSCH PRN .XX FLUSH AFTER USING IV ACCESS 12/02/16 23:45 Sodium Chloride (NS Flush) 2 ml BID .XX 12/03/16 09:00 Acetaminophen (Tylenol) 650 mg Q6H PRN PO FEVER >101F 12/02/16 23:45 Oxycodone/ Acetaminophen (Percocet 5-325 Mg) 1 tab Q4H PRN PO PAIN SCALE 1 TO 5 12/02/16 23:45 Hydromorphone HCl (Dilaudid Pf Inj) 1 mg Q4H PRN IV PAIN SCALE 6 TO 10 12/02/16 23:45 Pantoprazole Sodium (Protonix) 40 mg DAILY PO 12/03/16 09:00 Lorazepam (Ativan Inj) 1 mg Q4H PRN IV Agitation/Sedation 12/02/16 23:45 Temazepam (Restoril) 15 mg HS PRN PO INSOMNIA 12/02/16 23:45 Enoxaparin Sodium (Lovenox Inj) 40 mg Q24H SQ 12/04/16 00:00 Miscellaneous Information 1 [id number] XX 12/02/16 23:45 Chlorhexidine Gluconate (Chlorhexidine 2% Cloth) 3 pack Taper DAILY@04 TOP 12/03/16 04:00 11/29/17 03:59 Chlorhexidine Gluconate (Chlorhexidine 2% Cloth) 3 pack UNSCH PRN TOP HYGIENIC CARE 12/02/16 23:45 Apixaban (Eliquis) 2.5 mg BID PO 12/03/16 09:00 Ferrous Sulfate (Ferrous Sulfate) 325 mg TIDPC PO 12/03/16 09:30 Folic Acid (Folate) 1 mg DAILY PO 12/03/16 09:00 Morphine Sulfate (Oramorph Sr) 45 mg BID PO 12/03/16 09:00 UNV Multivitamins (Theragran) 1 tab DAILY PO 12/03/16 09:00 Oxycodone HCl (Roxicodone) 15 mg Q4H PRN PO PAIN 12/03/16 00:00 UNV Pantoprazole Sodium (Protonix) 40 mg DAILY PO 12/03/16 09:00 Polyethylene Glycol (Miralax) 17 gm BID PO 12/03/16 09:00 Promethazine HCl (Phenergan) 25 mg Q6H PRN PO Nausea/Vomiting 12/03/16 00:00 Sertraline HCl (Zoloft) 100 mg DAILY PO 12/03/16 09:00 Zolpidem Tartrate (Ambien) 5 mg HS PRN PO INSOMNIA 12/03/16 00:00 Non-Formulary Medication 220 mg BID PRN PO Pain Management 12/03/16 00:00 UNV Ondansetron HCl (Zofran Odt) 4 mg Q6H PRN PO NAUSEA OR VOMITING 12/03/16 00:30 Non-Formulary Medication 25 mg HS PRN PO INSOMNIA 12/03/16 00:15 UNV Family History Noncontributory Social History 1 pack per day smoking - quit in 2014 No alcohol or illicit drug abuse Physical Exam Vital Signs Vital Signs Date Time Temp Pulse Resp B/P Pulse Ox O2 Delivery O2 Flow Rate FiO2 12/02/16 21:22 100 Nasal Cannula 2 12/02/16 21:22 18 100 Nasal Cannula 2 12/02/16 20:23 99.1 111 22 147/81 98 Room Air Physical Exam GENERAL: Well-nourished, well-developed patient. And in no acute distress SKIN: Warm and dry. HEAD: Normocephalic. EYES: No scleral icterus. No injection or drainage. NECK: Supple, trachea midline. No JVD or lymphadenopathy. CARDIOVASCULAR: Regular rate and rhythm without murmurs, gallops, or rubs. RESPIRATORY: Breath sounds equal bilaterally. No accessory muscle use. GASTROINTESTINAL: Abdomen soft, non-tender, nondistended. MUSCULOSKELETAL: No cyanosis, or edema. BACK: Nontender without obvious deformity. No CVA tenderness. EXTREMITIES: No clubbing cyanosis or edema Laboratory Laboratory Tests Test 12/02/16 21:10 White Blood Count 4.6 Red Blood Count 3.71 Hemoglobin 11.0 Hematocrit 31.7 Mean Corpuscular Volume 85.5 Mean Corpuscular Hemoglobin 29.5 Mean Corpuscular Hemoglobin 34.6 Concent Red Cell Distribution Width 18.3 Platelet Count 337 Mean Platelet Volume 7.6 Neutrophils (%) (Auto) 74.4 Lymphocytes (%) (Auto) 6.2 Monocytes (%) (Auto) 15.9 Eosinophils (%) (Auto) 3.4 Basophils (%) (Auto) 0.1 Neutrophils # (Auto) 3.4 Lymphocytes # (Auto) 0.3 Monocytes # (Auto) 0.7 Eosinophils # (Auto) 0.2 Basophils # (Auto) 0.0 CBC Comment DIFF FINAL Differential Comment Prothrombin Time 11.7 Prothromb Time International 1.1 Ratio Activated Partial 34.7 Thromboplast Time Sodium Level 136 Potassium Level 3.5 Chloride Level 103 Carbon Dioxide Level 24.3 Anion Gap 9 Blood Urea Nitrogen 11 Creatinine 0.78 Estimat Glomerular Filtration 115 Rate Random Glucose 85 Calcium Level 8.6 Troponin I LESS THAN 0.02 Result Diagram: 12/02/16210912/02/162109 Imaging Last [address] Angiography 12/02/162053 Signed Impressions: Service Date/Time: Friday, December 02, 2016 22:42 - CONCLUSION: 1. New finding on today's examination is a greater than 2 cm pneumothorax at the apex and anterior in the lower right chest. 2. No evidence of pulmonary embolism. 3. Other findings of malignancy are similar to prior examination including large mediastinal mass, right upper lung mass, destruction of the posterior medial left rib with significant soft tissue component, and obstruction of the superior vena cava with extensive collaterals. Vidal Rogers MD Assessment and Plan Assessment and Plan Spontaneous pneumothorax - Underlying stage IV non-small cell carcinoma - 100% oxygen nonrebreather 24 hours - Follow-up chest x-ray in the morning - No intervention at this time - Pulmonary consult to follow-up Non-small cell carcinoma of the lungs - Status post palliative chemotherapy and radiation therapy - Management as an outpatient after discharge - Pain control History of congenital hydrocephalus - Varus post [employer] shunt - No active issues Anemia of chronic disorder - Iron supplements Insomnia - Zolpidem when necessary History of superior vena cava syndrome - Resume home dose of Eliquis to prevent SVC clot DVT GI prophylaxis - Lovenox - Pantoprazole Level III Thanh Bhatti MD Dec 02, 2016 23:54
[2016-12-03] VITALS (12 sets, daily range): BP systolic 96–118; BP diastolic 60–89; PULSE 83–90; RESP 13–20; TEMP 98.1–98.5; O2SAT 99–100
[2016-12-03] MEDS ORDERED: PROMETHAZINE HCL 25 MG TAB PO PRN
[2016-12-03] MEDS ORDERED: NON-FORMULARY DRUG (Naproxen Sodium (Aleve) 220 MG) PO PRN
[2016-12-03] MEDS ORDERED: DOXYLAMINE SUCCINATE 25 MG PO PRN (00:15)
[2016-12-03] MEDS ORDERED: ONDANSETRON ODT 4 MG TAB PO PRN (00:30)
[2016-12-03] MEDS: CHLORHEXIDINE GLUCONATE 2 % 1 PACK (2 CLOTHS) TOP SCH (03:30)
[2016-12-03] MEDS: HYDROmorphone HCL PF 1 MG/ML VIAL IV PRN ×4 (04:36→21:44)
[2016-12-03 05:01] LABS: AUTOMATED NEUTROPHIL # 3.2 TH/MM3 (1.8-7.7); BASOPHIL % 0.2 % (0.0-2.0); EOSINOPHIL # 0.1 TH/MM3 (0-0.4); EOSINOPHIL % 2.7 % (0.0-4.0); HEMATOCRIT 31.8 % (39.0-51.0); HEMO FLAGS DIFF FINAL; LYMPH % 6.6 % (9.0-44.0); LYMPHOCYTE # 0.3 TH/MM3 (1.0-4.8); MEAN CELL VOLUME 85.6 FL (80.0-100.0); MEAN CORPUSCULAR HEMOGLOBIN 28.3 PG (27.0-34.0); MONO % 17.6 % (0.0-8.0); NEUT % 72.9 % (16.0-70.0); PLATELET COUNT 298 TH/MM3 (150-450); RED BLOOD COUNT 3.72 MIL/MM3 (4.50-5.90); RED CELL DISTRIBUTION WIDTH 18.4 % (11.6-17.2); WHITE BLOOD COUNT 4.4 TH/MM3 (4.0-11.0)
[2016-12-03 05:21] LABS: ANION GAP 10 MEQ/L (5-15); AST (GOT) 27 U/L (15-37); BICARBONATE 20.9 MEQ/L (21.0-32.0); BLOOD UREA NITROGEN 9 MG/DL (7-18); CHLORIDE 105 MEQ/L (98-107); GLOMERULAR FILTRATION RATE 168 ML/MIN (>89); MAGNESIUM 2.5 MG/DL (1.5-2.5); POTASSIUM 3.8 MEQ/L (3.5-5.1); SODIUM (NA) 136 MEQ/L (136-145)
[2016-12-03 05:24] LABS: ALKALINE PHOSPHATASE 99 U/L (45-117); ALT (GPT) 25 U/L (12-78); TOTAL BILIRUBIN ADULT 0.4 MG/DL (0.2-1.0)
--- NOTE | 2016-12-03 05:30 | RADRPT ---
EXAM DATE/TIME: 12/03/2016 04:31 [facility] COMPARISON: CT PULMONARY ANGIOGRAM, December 02, 2016, 22:42. CHEST SINGLE AP, November 03, 2016, 18:43. INDICATIONS : Shortness of breath, possible pulmonary disease. MEDICAL HISTORY : Carcinoma, lung. SURGICAL HISTORY : None. ENCOUNTER: Subsequent ACUITY: 2 days PAIN SCORE: 0/10 LOCATION: Bilateral chest FINDINGS: A single portable frontal view of the chest shows an intra-alveolar infiltrate within the right lung apex. Left lung is clear. A power port is seen involving the left chest. The catheter courses along t he left aspects of the chest. When correlated to the prior CT the chest the catheter is felt to be wi thin the internal mammary vein. The heart is normal in size. Bony structures are unremarkable. CONCLUSION: 1. Right apical infiltrate. 2. Left-sided power port with the tip felt to be within the left internal mammary vein. This patient has an occluded SVC. Vidal Hernandez Jr., MD on December 03, 2016 at 5:27 Board Certified Radiologist. This report was verified electronically.
[2016-12-03] MEDS: MORPHINE SULFATE 15 MG CONTROLLED RELEASE TAB PO SCH ×2 (07:43→20:29)
[2016-12-03] MEDS: MORPHINE SULFATE 30 MG CONTROLLED RELEASE TAB PO SCH ×2 (07:43→20:30)
[2016-12-03] MEDS: FERROUS SULFATE 325 MG (65 MG ELEMENTAL IRON) TAB PO SCH ×2 (07:45→13:30)
[2016-12-03] MEDS: MULTIVITAMIN TAB PO SCH (07:45)
[2016-12-03] MEDS: PANTOPRAZOLE SOD 40 MG DELAYED RELEASE TAB PO SCH (07:45)
[2016-12-03] MEDS: FOLIC ACID 1 MG TAB PO SCH (07:45)
[2016-12-03] MEDS: SERTRALINE HCL 100 MG TAB PO SCH (07:45)
[2016-12-03] MEDS: APIXABAN 2.5 MG TABLET PO SCH ×2 (07:45→20:30)
[2016-12-03] MEDS: POLYETHYLENE GLYCOL 17 GM PKG PO SCH ×2 (07:45→20:27)
[2016-12-03] MEDS: SODIUM CHLORIDE 0.9% FLUSH 10 ML FLUSH SCH ×2 (07:46→20:31)
--- NOTE | 2016-12-03 08:59 | HHI.PR ---
Subjective Remarks feels a little better. Objective Vitals heart reg lung diminished right lung abd s/nt ext no edema Vital Signs Date Time Temp Pulse Resp B/P Pulse Ox O2 Delivery O2 Flow Rate FiO2 12/03/16 06:00 83 12/03/16 04:00 98.5 84 14 100/85 100 12/03/16 04:00 84 12/03/16 02:00 90 12/03/16 02:00 98.5 90 17 100/89 100 12/02/16 21:22 100 Nasal Cannula 2 12/02/16 21:22 18 100 Nasal Cannula 2 12/02/16 20:23 99.1 111 22 147/81 98 Room Air 12/02/16 12/02/16 12/03/16 15:00 23:00 07:00 Intake Total 746 ml Output Total 300 ml Balance 446 ml Intake Oral 240 ml IV Total 506 ml Output Urine Total 300 ml Result Diagram: 12/03/16 0437 12/03/16 0437 A/P Problem List: (1) Pneumothorax Status: Acute Plan: Pt is 31 yo with metastatic adenocarcinoma lung to frontal bone. 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 He also has SVC occlusion chronically with collaterals Presented with spontaneous pneumothorax right lung. cont nrb pulmonary to see pt today. cont anticoagulation. activity as tolerated. pt was scheduled for more chemoradiation. dr Hood is his oncologist. (2) Metastatic lung cancer (metastasis from lung to other site) Status: Chronic Plan: see above (3) SVC syndrome Status: Chronic Plan: see above Problem Qualifiers (1) Pneumothorax: Qualified Code: J93.9 - Pneumothorax, unspecified type Rom Benjamin MD Dec 03, 2016 08:59
[2016-12-03] MEDS ORDERED: PANTOPRAZOLE SOD 40 MG DELAYED RELEASE TAB PO SCH (09:00)
--- NOTE | 2016-12-03 12:44 | MB ---
cc: GABINO ROSADO MD, JOSE R. M.D. HEMATOLOGY/ONCOLOGY CONSULTATION NOTE DATE OF : 1985 PRIMARY CARE PHYSICIAN: Dr. Cam Palacios DATE OF CONSULTATION: 12/03/2016 REASON FOR CONSULTATION: Patient with right-sided pneumothorax. ONCOLOGIC DIAGNOSIS: 1. 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 2. 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 CHIEF COMPLAINT: 1. Sudden onset difficulty breathing which started on 12/02/2016. 2. Chronic central chest pressure. HISTORY OF PRESENT ILLNESS: Mr. Cali is a very pleasant 31-year-old male who is well-known to me from my outpatient practice. Mr. Cali was diagnosed with adenocarcinoma of the right lung in May 2016 when he presented with chest pain and difficulty breathing along with facial swelling. He was noted to have a right upper lobe lung mass associated with massive mediastinal lymphadenopathy with resultant superior vena cava syndrome and near-complete compression of the right main pulmonary artery. The patient was initiated on concurrent chemoradiotherapy after initial staging imaging scans revealed no definite evidence of metastases. Upon conclusion of concurrent chemoradiotherapy, he was initiated on consolidation chemotherapy with Abraxane and carboplatinol. Unfortunately while on consolidation, he was found to have metastatic disease involving his ribs and intra-abdominal organs as well. He was initiated on palliative systemic therapy with a combination of carboplatin/Avastin/pemetrexed and was only able to tolerate two cycles of this. On his second cycle he developed an anaphylactic type reaction to carboplatin infusion. He was subsequently recommended transition to docetaxel/ramucirumab. This is scheduled to start next week. Mr. Cali reports being in his usual state, i.e., with chronic chest pain and debility when he noticed sudden onset difficulty breathing when he stood up from a sitting position on 12/02/2016. He was brought into the emergency department and imaging studies of the chest including a CT angiogram revealed a right-sided pneumothorax measuring approximately 2.5 cm at its greatest thickness. Given his angiothoracic pathology and other issues, he was recommended conservative management. PAST MEDICAL HISTORY: 1. Poorly differentiated metastatic adenocarcinoma of the lung negative for EGFR, negative for ALK, PDL-1, expression less than 1%. 2. FVC syndrome. 3. Chronic anticoagulation. 4. Pericardial effusion. 5. Congenital hydrocephalus. 6. Asthma. 7. Anxiety. 8. Depression. PAST SURGICAL HISTORY: 1. 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 2. Radial shortening. 3. Pilonidal cyst removal. 4. Percutaneous pericardiocentesis, attempted May 2016. 5. CT guided biopsy, mediastinal mass. FAMILY HISTORY: Parents are both alive. Paternal grandmother had pancreas cancer. Paternal grandfather had lung cancer. SOCIAL HISTORY: He is single, he has no children. He previously worked in [employer] in [employer]. He formerly was a smoker having smoked a pack per day for 10 years but he quit in 2016. ALLERGIES: CARBOPLATIN, PACLITAXEL, CAMPHOR. CURRENT INPATIENT MEDICATIONS: 1. Sodium chloride 84 cc per hour. 2. Tylenol 650 milligrams p.o. q6 hours for fever. 3. Apixaban 2.5 milligrams p.o. b.i.d. 4. Ferrous sulfate 325 p.o. t.i.d. 5. Folic acid 1 milligram daily. 6. Dilaudid 1 milligram IV q4 hours for severe pain. 7. Lorazepam 1 milligram IV q4 hours for agitation or sedation. 8. Morphine sulfate longacting 45 milligrams p.o. twice daily. 9. Multivitamins. 10. Zofran 4 milligrams p.o. q6 hours. 11. Pantoprazole 40 milligrams p.o. daily. 12. Promethazine 25 milligrams p.o. q6 hours. 13. Sertraline 100 milligrams p.o. daily. 14. Zolpidem 5 milligrams p.o. q hs as needed for insomnia. REVIEW OF SYSTEMS: A 13 point review of systems is obtained, the following are the pertinent positives. Constitutional: Fred reports fatigue, weakness, generally decreased appetite, he denies fevers, chills or night sweats. HEENT: Denies headaches, he has a metastatic deposit to the frontal bone to the left side which is currently being irradiated. He denies visual disturbances. Respiratory: Reports sudden onset difficulty breathing which seems to be improved right now. He reports chronic midline chest pressure. Cardiovascular: Denies angina-like chest pain, reports palpitations, denies lower extremity edema. GI: Denies nausea, vomiting, diarrhea, hematochezia, melena, appetite is generally decreased. : No complaints. KINDER TEACHER: Denies any focal sensory or motor deficits. PHYSICAL EXAMINATION Vital signs: Temperature 98.5 degrees Fahrenheit, heart rate ranging between 83 and 110 beats a minute, blood pressure of 100/85, O2 sats are 100% on non-rebreather. General appearance: Mr. Cali is a young male. He is very tall and thin. He is laying in bed with a non-rebreather on. He appears not to be acutely distressed. His mother is at bedside. HEENT: Head atraumatic, normocephalic, conjunctive are mildly pale. Sclerae are anicteric, EOMI, PERRLA. Oral exam, no pharyngeal erythema. Neck: No palpable cervical or supraclavicular lymphadenopathy. Respiratory exam: Prolonged expiratory phase, no added breath sounds. Good and equal air entry bilaterally. No JVD. Cardiovascular: Tachycardia, regular, S1-S2. No obvious murmurs, rubs or gallops. Abdomen: Thin belly, soft and nontender, nondistended, no palpable organ enlargement. Extremities: Lower extremities, no pretibial edema. No calf tenderness. KINDER TEACHER: No focal sensory or motor deficits. LABORATORY FINDINGS Blood work dated 12/03/2016: WBC count 4.4, hemoglobin 10.5 gm/dl, hematocrit 31.8%, platelet count 300, absolute neutrophil count 3.2. Chemistries: Sodium 136, potassium 3.8, chloride 105, bicarb 21, BUN 9, creatinine 0.56, calcium 8.4, phosphorus 2.3, albumin 3. IMAGING STUDIES CT angiogram dated 12/02/2016: Greater than 2 cm pneumothorax at the apex of the right lung. No evidence of pulmonary embolism. Chronic findings of large mediastinal mass, right upper lobe lung mass, destructive bony metastases with soft tissue component. SVC syndrome. ASSESSMENT Mr. 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 The patient did undergo Guardian 360 testing at the [facility] and was found to have no other actionable mutation. His treatment history is thus far consisted of concurrent chemoradiotherapy for management of his SVC syndrome. He received weekly carboplatin and Abraxane while on radiation. He subsequently was initiated on carboplatin/pemetrexed/Avastin of which he received two cycles in September and October of 2016. The patient developed an anaphylactic reaction to carbo and, therefore, was recommended transitioning to docetaxel/ramucirumab. He presents to [facility] with sudden onset difficulty breathing and was found to have an apparently spontaneous right-sided pneumothorax. Thus far, he has been managed conservatively. Subjectively he is feeling better with oxygen supplementation. RECOMMENDATIONS: 1. Metastatic adenocarcinoma of the lung: I would like to resume palliative systemic therapy as soon as possible following discharge. 2. He is presently on palliative radiation to metastatic frontal bone lesion involving the left side of the forehead. This should resume on 12/04/2016. 3. Pneumothorax: I think it would be most prudent to pursue a conservative course of action so as to avoid chest tube placement unless this is absolutely needed. Given the COPD and emphysematous changes this man has along with the disease burden in his right lung, I am concerned he is at risk for a permanent air leak. This may be made worse in my assessment with placement of a tube. I will, however, defer to pulmonology or cardiothoracic surgery if they need to be involved. 4. Anemia. Continue iron replacement. 5. SVC syndrome. He is on a prophylactic dosing of Apixaban for SVC thrombus prophylaxis. MD RAMONA Madrigal/MARIAH /11:30 AM /12:04 PM COREY
--- NOTE | 2016-12-03 13:31 | EKG ---
Date Performed: 12/02/2016 Time Performed: 21:06:08 PTAGE: 31 years EKG: Sinus rhythm NONSPECIFIC T-WAVE ABNORMALITY Compared to prior tracing no significant change BORDERLINE ECG PREVIOUS TRACING : 11/03/2016 18.27 DOCTOR: Keo Dominguez Interpretating Date/Time 12/03/2016 13:29:12
--- NOTE | 2016-12-03 14:38 | MB ---
cc: JASMYN VINES M.D. DATE OF CONSULTATION: 12/03/2016. REASON FOR CONSULTATION: Pneumothorax. HISTORY OF PRESENT ILLNESS: Mr. Cali is a 31-year-old male who has known history of stage IV lung cancer post radiation now receiving chemotherapy. The patient was admitted with chest pain of acute onset. CT of the chest revealed a small right apical pneumothorax. Follow up chest x-ray today is without evidence to suggest pneumothorax. The patient is feeling well. No chest pain. No fever or chills. No cough, no expectoration. No hemoptysis. PAST MEDICAL HISTORY: 1. Lung cancer as mentioned above. 2. Hydrocephalus. 3. Depression. 4. DISPATCH LEAD shunt in the past. MEDICATIONS: His medications include: 1. Ambien. 2. Folic acid. 3. MiraLax. 4. Oxycodone. 5. MS Contin. 6. Sertraline. 7. Phenergan. 8. Protonix. 9. Zofran. 10. Aleve. 11. Vitamin tablets. 12. Ferrous sulfate. 13. Eliquis. 14. Ventolin. 15. Unisom. ALLERGIES: None known to medication. SOCIAL HISTORY: Does not smoke or drink at present; did smoke for a brief period of time however has not smoked since 2014. Does not use drugs. Does not drink alcohol. FAMILY HISTORY: Noncontributory. PHYSICAL EXAMINATION: GENERAL: On exam, the patient is alert. VITAL SIGNS: Temperature 92.8 pulse 80, respirations 18, blood pressure 100/80. HEAD, EYES, EARS, NOSE, THROAT: Exam unremarkable. Eyes without icterus. NECK: Without adenopathy. Thyroid enlargement. Central trachea. CHEST: No dullness to percussion, clear to auscultation. CARDIAC: PMI distant. S1-S2 audible. No murmur or rub. ABDOMEN: Lax, audible bowel sounds. EXTREMITIES: No clubbing, cyanosis or edema. IMPRESSION: 1. Small apical pneumothorax seems resolved. 2. Stage IV lung cancer. PLAN: The patient is without symptomatology as this time as far as the pneumothorax is concerned. There is no chest pain or significant increase in shortness of breath. Therefore, at this time observation would suffice and follow up chest x-ray to assure stability of his pneumothorax to assure continued resolution of the pneumothorax would be appropriate at this time. This has been discussed and explained to the patient in detail and he is understanding. I do thank you for asking to partake in Mr. Cali'. Jasmyn Vines MD WWW/[facility] /1:16 PM /2:26 PM
[2016-12-04] VITALS (14 sets, daily range): BP systolic 107–124; BP diastolic 73–78; PULSE 85–94; RESP 14–19; TEMP 97.7–98.9; O2SAT 100
[2016-12-04] MEDS ORDERED: ENOXAPARIN SODIUM 40 MG/0.4 ML SYRINGE SQ SCH
[2016-12-04] MEDS: HYDROmorphone HCL PF 1 MG/ML VIAL IV PRN (01:43)
[2016-12-04] MEDS: CHLORHEXIDINE GLUCONATE 2 % 1 PACK (2 CLOTHS) TOP SCH (04:00)
--- NOTE | 2016-12-04 06:12 | RADRPT ---
EXAM DATE/TIME: 12/04/2016 04:34 [facility] COMPARISON: [id number] PLCMT, POWERPORT, W US, RIGHT, September 11, 2016, 10:24. CHEST SINGLE AP, November 03, 2016 , 18:43. CT PULMONARY ANGIOGRAM, December 02, 2016, 22:42. CHEST SINGLE AP, December 03, 2016, 4:31. INDICATIONS : Follow up pneumothorax. MEDICAL HISTORY : None. SURGICAL HISTORY : None. ENCOUNTER: Subsequent ACUITY: 2 days PAIN SCORE: 5/10 LOCATION: Right chest FINDINGS: No change in the pleural-based parenchymal infiltrate in the right upper lung. The rest of the lungs remain clear. No new infiltrates are seen. There are no pleural effusions. Heart size is stable. Ther e is an [id number] on the left side and unchanged in its course and position.. CONCLUSION: There continues to be a parenchymal infiltrate in the right upper lung which is unchanged compared to the prior study. The rest of lung blanco remain grossly clear. No new infiltrates. Som Pearson MD on December 04, 2016 at 6:07 Board Certified Radiologist. This report was verified electronically.
[2016-12-04] MEDS: FERROUS SULFATE 325 MG (65 MG ELEMENTAL IRON) TAB PO SCH ×3 (08:44→18:15)
[2016-12-04] MEDS: SERTRALINE HCL 100 MG TAB PO SCH (08:44)
[2016-12-04] MEDS: POLYETHYLENE GLYCOL 17 GM PKG PO SCH ×2 (08:44→20:13)
[2016-12-04] MEDS: PANTOPRAZOLE SOD 40 MG DELAYED RELEASE TAB PO SCH (08:45)
[2016-12-04] MEDS: MULTIVITAMIN TAB PO SCH (08:45)
[2016-12-04] MEDS: APIXABAN 2.5 MG TABLET PO SCH ×2 (08:45→20:14)
[2016-12-04] MEDS: MORPHINE SULFATE 15 MG CONTROLLED RELEASE TAB PO SCH ×2 (08:45→20:13)
[2016-12-04] MEDS: MORPHINE SULFATE 30 MG CONTROLLED RELEASE TAB PO SCH ×2 (08:45→20:14)
[2016-12-04] MEDS: FOLIC ACID 1 MG TAB PO SCH (08:45)
[2016-12-04] MEDS: SODIUM CHLORIDE 0.9% FLUSH 10 ML FLUSH SCH ×2 (08:46→20:14)
--- NOTE | 2016-12-04 09:23 | HHI.PR ---
Subjective Remarks denies right lung pain or pleurisy no nrb and denies sob. Objective Vitals heart reg lung air entry carol ann no labored breathing abd s/nt ext chelita william Vital Signs Date Time Temp Pulse Resp B/P Pulse Ox O2 Delivery O2 Flow Rate FiO2 12/04/16 06:00 86 12/04/16 04:00 98.5 86 19 124/76 100 12/04/16 04:00 86 12/04/16 02:00 85 12/04/16 00:00 98.9 86 15 107/75 100 12/04/16 00:00 86 12/03/16 22:46 13 12/03/16 22:45 13 12/03/16 22:45 13 12/03/16 22:00 86 12/03/16 20:55 99 Non-Rebreather 15.00 100 12/03/16 20:00 98.5 88 13 114/76 100 12/03/16 20:00 88 12/03/16 18:00 84 12/03/16 16:00 98.3 85 15 96/60 99 12/03/16 16:00 84 12/03/16 14:00 84 12/03/16 12:00 88 12/03/16 12:00 98.1 86 18 118/77 100 12/03/16 10:00 88 12/03/16 12/03/16 12/04/16 15:00 23:00 07:00 Intake Total 838 ml 1139 ml 658 ml Output Total 500 ml 475 ml 320 ml Balance 338 ml 664 ml 338 ml Intake Oral 300 ml 480 ml 0 ml IV Total 538 ml 659 ml 658 ml Output Urine Total 500 ml 475 ml 320 ml Result Diagram: 12/03/16 0437 12/03/16 0437 A/P Problem List: (1) Pneumothorax Status: Acute Plan: Pt is 31 yo with metastatic adenocarcinoma lung to frontal bone. 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 He also has SVC occlusion chronically with collaterals Presented with spontaneous pneumothorax right lung. currently pt denies sob/pleurisy discussed with Dr Hood. we estevan get a repeat CT chest to eval ptx and then decide on transfer to floor and ambulation..wean off oxygen...if stable then would possibly d/c tomorrow. cont anticoagulation. activity as tolerated. pt was scheduled for more chemoradiation. dr Hood is his oncologist. (2) Metastatic lung cancer (metastasis from lung to other site) Status: Chronic Plan: see above (3) SVC syndrome Status: Chronic Plan: see above Problem Qualifiers (1) Pneumothorax: Qualified Code: J93.9 - Pneumothorax, unspecified type Rom Benjamin MD Dec 04, 2016 09:23
--- NOTE | 2016-12-04 10:41 | RADRPT ---
EXAM DATE/TIME: 12/04/2016 10:07 [facility] COMPARISON: CT PULMONARY ANGIOGRAM, December 02, 2016, 22:42. CHEST SINGLE AP, December 04, 2016, 4:34. INDICATIONS : Respiratory distress; abnormal chest x-ray with persistent parenchymal opacity in the right upper lob e. follow-up right pneumothorax. Known right upper lobe and mediastinal mass. RADIATION DOSE: 3.32 CTDIvol (mGy) MEDICAL HISTORY : Carcinoma, lung. SURGICAL HISTORY : None. ENCOUNTER: Initial ACUITY: 1 day PAIN SCALE: 0/10 LOCATION: Bilateral chest TECHNIQUE: Volumetric scanning of the chest was performed. Using automated exposure control and adjustment of t he mA and/or kV according to patient size, radiation dose was kept as low as reasonably achievable to obtain optimal diagnostic quality images. FINDINGS: LUNGS: There has been an interval decrease in size of the right apical pneumothorax with small apical compon ent remaining measuring up to approximately 1.4 cm in greatest AP diameter. There are multiple blebs again noted in both upper lobes. The lungs remain hyperinflated with areas of scarring. An ill-define d soft tissue mass is again present in the lateral right upper lobe with adjacent pleural thickening. This measures up to 3.3 x 3.1 cm in diameter. PLEURAE: There is a small right pleural effusion with apparent loculated component along the right upper lobe. There is a small left pleural effusion. MEDIASTINUM: Ill-defined pretracheal and right hilar adenopathy is again identified. There are multiple calcified nodes in the pretracheal area. There are small areas of pericardial fluid. AXILLAE: Within normal limits. No lymphadenopathy. MUSCULOSKELETAL: Osteopenia, degenerative changes and scoliosis are again noted. MISCELLANEOUS: The visualized upper abdominal organs demonstrate no acute abnormality. The adrenal glands remain lob ular and thickened. CONCLUSION: 1. Interval decrease in the size of right apical pneumothorax with small apical component remaining. 2. Right upper lobe mass and mediastinal adenopathy again noted. 3. Small pleural effusions right greater than left. Bob Hernandez MD on December 04, 2016 at 10:27 Board Certified Radiologist. This report was verified electronically.
[2016-12-04] MEDS: oxyCODONE/ACETAMINOPHEN 5 MG/325 MG TAB PO PRN ×2 (14:37→18:15)
--- NOTE | 2016-12-04 17:46 | HHI.PR ---
Subjective Remarks ALERT NO SOB NO CHEST PAIN CXRAY NO PNX Objective Vital Signs Date Time Temp Pulse Resp B/P Pulse Ox O2 Delivery O2 Flow Rate FiO2 12/04/16 17:30 98.1 91 16 123/78 100 12/04/16 15:37 14 12/04/16 14:00 90 12/04/16 12:53 100 Non-Rebreather 12/04/16 12:00 87 12/04/16 12:00 98.1 87 16 112/76 100 12/04/16 10:00 89 12/04/16 09:45 14 12/04/16 09:45 14 12/04/16 08:00 85 12/04/16 08:00 97.7 85 14 122/74 100 12/04/16 06:00 86 12/04/16 04:00 98.5 86 19 124/76 100 12/04/16 04:00 86 12/04/16 02:00 85 12/04/16 00:00 98.9 86 15 107/75 100 12/04/16 00:00 86 12/03/16 22:46 13 12/03/16 22:00 86 12/03/16 20:55 99 Non-Rebreather 15.00 100 12/03/16 20:00 98.5 88 13 114/76 100 12/03/16 20:00 88 12/03/16 18:00 84 I/O 12/03/16 12/03/16 12/03/16 12/04/16 12/04/16 12/04/16 07:00 15:00 23:00 07:00 15:00 23:00 Intake Total 746 ml 838 ml 1139 ml 658 ml 744 ml Output Total 300 ml 500 ml 475 ml 320 ml 1000 ml Balance 446 ml 338 ml 664 ml 338 ml -256 ml Intake Oral 240 ml 300 ml 480 ml 0 ml 480 ml IV Total 506 ml 538 ml 659 ml 658 ml 264 ml Output Urine Total 300 ml 500 ml 475 ml 320 ml 1000 ml # Bowel Movements 0 Result Diagram: 12/03/16 0437 12/03/16 043 Medications and IVs GENERAL: SKIN: Warm and dry. HEAD: Atraumatic. Normocephalic. EYES: Pupils equal and round. No scleral icterus. No injection or drainage. ENT: No nasal bleeding or discharge. Mucous membranes pink and moist. NECK: Trachea midline. No JVD. CARDIOVASCULAR: Regular rate and rhythm. RESPIRATORY: No accessory muscle use. Clear to auscultation. Breath sounds equal bilaterally. GASTROINTESTINAL: Abdomen soft, non-tender, nondistended. Hepatic and splenic margins not palpable. MUSCULOSKELETAL: Extremities without clubbing, cyanosis, or edema. No obvious deformities. NEUROLOGICAL: Awake and alert. No obvious cranial nerve deficits. Motor grossly within normal limits. Five out of 5 muscle strength in the arms and legs. Normal speech. PSYCHIATRIC: Appropriate mood and affect; insight and judgment normal. Assessment and Plan Assessment and Plan ASS PNX , RESOLVED LUNG CA PLAN INCREASE ACTIVITY Jasmyn,Jasmyn Ortiz MD Dec 04, 2016 17:46
--- NOTE | 2016-12-04 19:23 | PD.ONC.PN ---
Subjective Subjective Remarks Feels breathing is improved. Reports pain is severe and uncontrolled. Had RT today. Oxygen delivery is now down to 2LPM via NC. Objective Data Date Time Temp Pulse Resp B/P Pulse Ox O2 Delivery O2 Flow Rate FiO2 12/04/16 18:00 92 12/04/16 17:30 98.1 91 16 123/78 100 12/04/16 15:37 14 12/04/16 14:00 90 12/04/16 12:53 100 Non-Rebreather 12/04/16 12:00 87 12/04/16 12:00 98.1 87 16 112/76 100 12/04/16 10:00 89 12/04/16 09:45 14 12/04/16 09:45 14 12/04/16 08:00 85 12/04/16 08:00 97.7 85 14 122/74 100 12/04/16 06:00 86 12/04/16 04:00 98.5 86 19 124/76 100 12/04/16 04:00 86 12/04/16 02:00 85 12/04/16 00:00 98.9 86 15 107/75 100 12/04/16 00:00 86 12/03/16 22:46 13 12/03/16 22:00 86 12/03/16 20:55 99 Non-Rebreather 15.00 100 12/03/16 20:00 98.5 88 13 114/76 100 12/03/16 20:00 88 12/04/16 12/04/16 12/04/16 07:00 15:00 23:00 Intake Total 658 ml 744 ml Output Total 320 ml 1000 ml Balance 338 ml -256 ml Result Diagram: 12/03/16 0437 12/03/16 0437 Imaging Studies Last 24 hours Impressions Chest X-Ray 12/04/16 0600 Signed Impressions: Service Date/Time: Sunday, December 04, 2016 04:34 - CONCLUSION: There continues to be a parenchymal infiltrate in the right upper lung which is unchanged compared to the prior study. The rest of lung blanco remain grossly clear. No new infiltrates. Som Pearson MD Chest CT 12/04/16 0000 Signed Impressions: Service Date/Time: Sunday, December 04, 2016 10:07 - CONCLUSION: 1. Interval decrease in the size of right apical pneumothorax with small apical component remaining. 2. Right upper lobe mass and mediastinal adenopathy again noted. 3. Small pleural effusions right greater than left. Bob Hernandez MD Administered Medications Medications (Trade) Dose Ordered Sig/Ruma Route PRN Reason Start Time Stop Time Status Last Admin Dose Admin Sodium Chloride (NS Flush) 2 ml BID .XX 12/03/16 09:00 12/04/16 08:46 Oxycodone/ Acetaminophen (Percocet 5-325 Mg) 1 tab Q4H PRN PO PAIN SCALE 1 TO 5 12/02/16 23:45 12/04/16 18:15 Chlorhexidine Gluconate (Chlorhexidine 2% Cloth) 3 pack Taper DAILY@04 TOP 12/03/16 04:00 11/29/17 03:59 12/04/16 04:00 Apixaban (Eliquis) 2.5 mg BID PO 12/03/16 09:00 12/04/16 08:45 Ferrous Sulfate (Ferrous Sulfate) 325 mg TIDPC PO 12/03/16 09:30 12/04/16 18:15 Folic Acid (Folate) 1 mg DAILY PO 12/03/16 09:00 12/04/16 08:45 Morphine Sulfate (Oramorph Sr) 30MG [ GIVE WITH 15MG... BID PO 12/03/16 09:00 12/04/16 08:45 Multivitamins (Theragran) 1 tab DAILY PO 12/03/16 09:00 12/04/16 08:45 Pantoprazole Sodium (Protonix) 40 mg DAILY PO 12/03/16 09:00 12/04/16 08:45 Polyethylene Glycol (Miralax) 17 gm BID PO 12/03/16 09:00 12/04/16 08:44 Sertraline HCl (Zoloft) 100 mg DAILY PO 12/03/16 09:00 12/04/16 08:44 Morphine Sulfate (Oramorph Sr) 15MG [ GIVE WITH 30MG... BID PO 12/03/16 09:00 12/04/16 08:45 Objective Remarks General appearance: Mr. Cali is a young male. He is very tall and thin. He is laying in bed with a non-rebreather on. He appears not to be acutely distressed. His mother is at bedside. HEENT: Head atraumatic, normocephalic, conjunctive are mildly pale. Sclerae are anicteric, EOMI, PERRLA. Oral exam, no pharyngeal erythema. Neck: No palpable cervical or supraclavicular lymphadenopathy. Respiratory exam: Prolonged expiratory phase, no added breath sounds. Good and equal air entry bilaterally. No JVD. Cardiovascular: Tachycardia, regular, S1-S2. No obvious murmurs, rubs or gallops. Abdomen: Thin belly, soft and nontender, nondistended, no palpable organ enlargement. Extremities: Lower extremities, no pretibial edema. No calf tenderness. TOOL ROOM ATTENDANT: No focal sensory or motor deficits. Assessment/Plan Assessment Mr. 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 The patient did undergo Guardian 360 testing at the [facility] and was found to have no other actionable mutation. His treatment history is thus far consisted of concurrent chemoradiotherapy for management of his SVC syndrome. He received weekly carboplatin and Abraxane while on radiation. He subsequently was initiated on carboplatin/pemetrexed/Avastin of which he received two cycles in September and October of 2016. The patient developed an anaphylactic reaction to carbo and, therefore, was recommended transitioning to docetaxel/ramucirumab. He presents to [facility] with sudden onset difficulty breathing and was found to have an apparently spontaneous right-sided pneumothorax. Thus far, he has been managed conservatively. Subjectively he is feeling better with oxygen supplementation. Plan 1. Pneumothorax is spontaneously improved based on repeat CT chest earlier today. On oxygen supplementation. 2. Lung ca: Metastatic disease had been on palliative systemic chemotherapy, will resume as an out pt post d/c. 3. SVC syndrome: continue eliquis 2.5mg bid for prophylaxis. 4. Pain control: Fred has pain related to metastatic lung ca with numerous destructive lesions to multiple ribs on the R and L side. He requires long and short acting opioids for management of his pain. Due to disease progression, he has required increased dosing of long and short acting opioids and I had been gradually and safely up titrating his dosing. He was on MSER 45mg PO BID and Oxycodone 15mg q4-6hrs PRN for breakthrough (and had been taking these on average every 5 hrs) as an out pt. I have adjusted his pain meds this evening. Tyler Hood MD Dec 04, 2016 19:23
[2016-12-04] MEDS: ZOLPIDEM TARTRATE 5 MG TAB PO PRN (21:36)
[2016-12-04] MEDS: HYDROmorphone HCL PF 1 MG/ML VIAL IV PUSH PRN (23:43)
[2016-12-05] VITALS (12 sets, daily range): BP systolic 104–134; BP diastolic 63–87; PULSE 91–98; RESP 12–20; TEMP 96.4–99; O2SAT 98–100
[2016-12-05] MEDS: CHLORHEXIDINE GLUCONATE 2 % 1 PACK (2 CLOTHS) TOP SCH (04:00)
[2016-12-05] MEDS: MULTIVITAMIN TAB PO SCH (08:12)
[2016-12-05] MEDS: MORPHINE SULFATE 15 MG CONTROLLED RELEASE TAB PO SCH ×2 (08:12→20:04)
[2016-12-05] MEDS: POLYETHYLENE GLYCOL 17 GM PKG PO SCH ×2 (08:13→20:03)
[2016-12-05] MEDS: SERTRALINE HCL 100 MG TAB PO SCH (08:13)
[2016-12-05] MEDS: FERROUS SULFATE 325 MG (65 MG ELEMENTAL IRON) TAB PO SCH ×3 (08:13→17:25)
[2016-12-05] MEDS: PANTOPRAZOLE SOD 40 MG DELAYED RELEASE TAB PO SCH (08:13)
[2016-12-05] MEDS: SODIUM CHLORIDE 0.9% FLUSH 10 ML FLUSH SCH ×2 (08:13→20:03)
[2016-12-05] MEDS: MORPHINE SULFATE 30 MG CONTROLLED RELEASE TAB PO SCH ×2 (08:13→20:05)
[2016-12-05] MEDS: APIXABAN 2.5 MG TABLET PO SCH ×2 (08:13→20:04)
[2016-12-05] MEDS: FOLIC ACID 1 MG TAB PO SCH (08:13)
--- NOTE | 2016-12-05 09:05 | HHI.PR ---
Subjective Remarks Pt had difficulties with breakthrough pain yesterday evening. Pt's pain is presently controlled. Pt denies SOB. NO new complaints. Objective Vitals Vital Signs Date Time Temp Pulse Resp B/P Pulse Ox O2 Delivery O2 Flow Rate FiO2 12/05/16 06:00 92 12/05/16 04:00 93 12/05/16 04:00 98.4 93 12 104/73 99 12/05/16 02:00 91 12/05/16 00:00 98.2 91 14 108/78 98 12/05/16 00:00 91 12/04/16 22:00 94 12/04/16 20:00 98.5 94 15 123/73 100 12/04/16 20:00 94 12/04/16 19:49 100 Nasal Cannula 12/04/16 18:00 92 12/04/16 17:30 98.1 91 16 123/78 100 12/04/16 15:37 14 12/04/16 14:00 90 12/04/16 12:53 100 Non-Rebreather 12/04/16 12:00 87 12/04/16 12:00 98.1 87 16 112/76 100 12/04/16 10:00 89 12/04/16 09:45 14 12/04/16 09:45 14 12/04/16 12/04/16 12/05/16 15:00 23:00 07:00 Intake Total 744 ml 600 ml 0 ml Output Total 1000 ml 600 ml 0 ml Balance -256 ml 0 ml 0 ml Intake Oral 480 ml 600 ml 0 ml IV Total 264 ml Output Urine Total 1000 ml 600 ml 0 ml # Bowel Movements 0 0 0 Result Diagram: 12/03/16 0437 12/03/16 0437 Imaging Last Impressions Chest X-Ray 12/04/16 0600 Signed Impressions: Service Date/Time: Sunday, December 04, 2016 04:34 - CONCLUSION: There continues to be a parenchymal infiltrate in the right upper lung which is unchanged compared to the prior study. The rest of lung blanco remain grossly clear. No new infiltrates. Som Pearson MD Chest CT 12/04/16 0000 Signed Impressions: Service Date/Time: Sunday, December 04, 2016 10:07 - CONCLUSION: 1. Interval decrease in the size of right apical pneumothorax with small apical component remaining. 2. Right upper lobe mass and mediastinal adenopathy again noted. 3. Small pleural effusions right greater than left. Bob Hernandez MD CT Angiography 12/02/162053 Signed Impressions: Service Date/Time: Friday, December 02, 2016 22:42 - CONCLUSION: 1. New finding on today's examination is a greater than 2 cm pneumothorax at the apex and anterior in the lower right chest. 2. No evidence of pulmonary embolism. 3. Other findings of malignancy are similar to prior examination including large mediastinal mass, right upper lung mass, destruction of the posterior medial left rib with significant soft tissue component, and obstruction of the superior vena cava with extensive collaterals. Vidal Rogers MD Objective Remarks GENERAL: This is a well-nourished, well-developed patient, in no apparent distress. CARDIOVASCULAR: Regular rate and rhythm without murmurs, gallops, or rubs. RESPIRATORY: Clear to auscultation. Breath sounds equal bilaterally. No wheezes , rales, or rhonchi. GASTROINTESTINAL: Abdomen soft, non-tender, nondistended. Normal active bowel sounds MUSCULOSKELETAL: Extremities without clubbing, cyanosis, or edema. NEURO: Alert & Oriented x4 to person, place, time, situation. 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 - He also has SVC occlusion chronically with collaterals - Pt admitted with spontaneous pneumothorax right lung. - repeat CT chest (12/04/16) - decrease of right apical pneumo with small residual right apical pneumothorax - continued right upper lobe mass - continued mediastinal lymphadenopathy - Pt stable on 2L O2 by NC - PT - Pt had difficulties with pain control yesterday (12/04/16) evening - transfer to general medical floor and observe to ensure pain control is adequate - if pt remains stable, anticipate d/c to home 12/06 (2) Metastatic lung cancer (metastasis from lung to other site) Status: Chronic Plan: - mgmt per Oncology, Dr. Hood (3) SVC syndrome Status: Chronic Plan: see above Problem Qualifiers (1) Pneumothorax: Qualified Code: J93.9 - Pneumothorax, unspecified type Dago Regalado DO Dec 05, 2016 09:05
--- NOTE | 2016-12-05 10:07 | PD.ONC.PN ---
Subjective Subjective Remarks Afebrile overnight. Patient reports he is comfortable and denies pain. He has not had a bowel movement in 2 days. He is breathing much better. Objective Data Date Time Temp Pulse Resp B/P Pulse Ox O2 Delivery O2 Flow Rate FiO2 12/05/16 09:24 99 Nasal Cannula 2.00 12/05/16 08:00 98.0 92 15 107/70 98 12/05/16 08:00 92 12/05/16 06:00 92 12/05/16 04:00 93 12/05/16 04:00 98.4 93 12 104/73 99 12/05/16 02:00 91 12/05/16 00:00 98.2 91 14 108/78 98 12/05/16 00:00 91 12/04/16 22:00 94 12/04/16 20:00 98.5 94 15 123/73 100 12/04/16 20:00 94 12/04/16 19:49 100 Nasal Cannula 12/04/16 18:00 92 12/04/16 17:30 98.1 91 16 123/78 100 12/04/16 15:37 14 12/04/16 14:00 90 12/04/16 12:53 100 Non-Rebreather 12/04/16 12:00 87 12/04/16 12:00 98.1 87 16 112/76 100 12/04/16 10:00 89 12/04/16 09:45 14 12/04/16 09:45 14 12/05/16 12/05/16 12/05/16 06:59 14:59 22:59 Intake Total 0 ml Output Total 0 ml Balance 0 ml Result Diagram: 12/03/16 0437 12/03/16 0437 Administered Medications Medications (Trade) Dose Ordered Sig/Ruma Route PRN Reason Start Time Stop Time Status Last Admin Dose Admin Sodium Chloride (NS Flush) 2 ml BID .XX 12/03/16 09:00 12/05/16 08:13 Chlorhexidine Gluconate (Chlorhexidine 2% Cloth) 3 pack Taper DAILY@04 TOP 12/03/16 04:00 11/29/17 03:59 12/04/16 04:00 Apixaban (Eliquis) 2.5 mg BID PO 12/03/16 09:00 12/05/16 08:13 Ferrous Sulfate (Ferrous Sulfate) 325 mg TIDPC PO 12/03/16 09:30 12/05/16 08:13 Folic Acid (Folate) 1 mg DAILY PO 12/03/16 09:00 12/05/16 08:13 Morphine Sulfate (Oramorph Sr) 30MG [ GIVE WITH 15MG... BID PO 12/03/16 09:00 12/05/16 08:13 Multivitamins (Theragran) 1 tab DAILY PO 12/03/16 09:00 12/05/16 08:12 Pantoprazole Sodium (Protonix) 40 mg DAILY PO 12/03/16 09:00 12/05/16 08:13 Polyethylene Glycol (Miralax) 17 gm BID PO 12/03/16 09:00 12/05/16 08:13 Sertraline HCl (Zoloft) 100 mg DAILY PO 12/03/16 09:00 12/05/16 08:13 Zolpidem Tartrate (Ambien) 5 mg HS PRN PO INSOMNIA 12/03/16 00:00 12/04/16 21:36 Morphine Sulfate (Oramorph Sr) 15MG [ GIVE WITH 30MG... BID PO 12/03/16 09:00 12/05/16 08:12 Hydromorphone HCl (Dilaudid Pf Inj) 0.5 mg Q6HR PRN IV PUSH PAIN SCALE 8 TO 10 12/04/16 19:30 12/04/16 23:43 Objective Remarks GENERAL: Young man, sitting up in bed in nad. On 2L O2 via NC SKIN: Warm and dry. HEAD: Normocephalic. EYES: No injection or drainage. NECK: Supple, trachea midline. CARDIOVASCULAR: Regular rate and rhythm RESPIRATORY: Breath sounds equal bilaterally. No accessory muscle use. GASTROINTESTINAL: Abdomen soft, non-tender, nondistended. EXTREMITIES: No cyanosis NEUROLOGICAL: No obvious focal deficit. Awake, alert, and oriented x3. 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 The patient did undergo Guardian 360 testing at the [facility] and was found to have no other actionable mutation. History: May 2016: presented w/CP SOB, facial swelling. noted to have RUL mass with massive mediastinal LAD and SVC syndrome and near-complete compression of the right main pulmonary artery ~June 2016: initial staging showed no evidence of mets. started on concurrent chemoradiotherapy ~Aug/2016: initiated on consolidation chemotherapy with Abraxane and carboplatin. ~2016: while on consolidation, found to have metastatic disease ( ribs and intra-abdominal organs) initiated on palliative systemic therapy with a combination of carboplatin/ Avastin/pemetrexed and was only able to tolerate two cycles of this. On his second cycle he developed an anaphylactic type reaction to carboplatin infusion. ~December2015: recommended transition to docetaxel/ramucirumab. This is scheduled to start the first week in December. (2) Pneumothorax Status: Resolved Plan: --pulmonology following --CT chest,12/04-->decrease of right apical pneumothorax with small residual right apical component (3) SVC syndrome Status: Chronic Plan: on anticoagulation (Eliquis 2.5mg PO BID) (4) Pain due to malignant neoplasm metastatic to bone Status: Acute Plan: --Oramorph 45mg PO BID (long-acting) + Oxycodone 15mg PO q4h for breakthrough or Dilaudid 0.5mg IV q 6 hours --pain related to metastatic lung ca with numerous destructive lesions to multiple ribs on the R and L side. --requires long and short acting opioids for management of his pain. Assessment 31 year-old male with metastatic poorly differentiated adenocarcinoma of the lung, admitted with spontaneous right-sided pneumothorax. h/o Poorly differentiated metastatic adenocarcinoma of the lung negative for EGFR, negative for ALK, PDL-1, expression less than 1%. SVC syndrome. Chronic anticoagulation. Pericardial effusion. Congenital hydrocephalus. Asthma. 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 Percutaneous pericardiocentesis, attempted May 2016. CT guided biopsy, mediastinal mass. Plan 1. agree with transfer to [facility] 2. pain management: pain well controlled with Oramorph 45mg PO BID, Oxycodone increased to 15mg. 3.bowel regimen of Miralax PO BID. No BM yet. will add a PRN laxative. Problem Qualifiers (1) Pneumothorax: Qualified Code: J93.9 - Pneumothorax, unspecified type Dahlia Arredondo Dec 05, 2016 10:06
[2016-12-05] MEDS ORDERED: LACTULOSE SYRUP 20 GM/30 ML CUP PO PRN (10:15)
[2016-12-06] VITALS: BP 125/82; PULSE 94; RESP 18; TEMP 97.2; O2SAT 96
[2016-12-06] MEDS: ZOLPIDEM TARTRATE 5 MG TAB PO PRN (00:35)
[2016-12-06] MEDS: HYDROmorphone HCL PF 1 MG/ML VIAL IV PUSH PRN (00:35)
[2016-12-06] MEDS: CHLORHEXIDINE GLUCONATE 2 % 1 PACK (2 CLOTHS) TOP SCH (04:00)
[2016-12-06 05:52] VITALS: BP 120/82; PULSE 91; RESP 17; TEMP 96.6; O2SAT 96
[2016-12-06 07:50] VITALS: BP 121/75; PULSE 91; RESP 20; TEMP 96.9; O2SAT 99
[2016-12-06] MEDS: SERTRALINE HCL 100 MG TAB PO SCH (08:57)
[2016-12-06] MEDS: MULTIVITAMIN TAB PO SCH (08:57)
[2016-12-06] MEDS: APIXABAN 2.5 MG TABLET PO SCH (08:57)
[2016-12-06] MEDS: PANTOPRAZOLE SOD 40 MG DELAYED RELEASE TAB PO SCH (08:57)
[2016-12-06] MEDS: FOLIC ACID 1 MG TAB PO SCH (08:57)
[2016-12-06] MEDS: MORPHINE SULFATE 15 MG CONTROLLED RELEASE TAB PO SCH (08:57)
[2016-12-06] MEDS: FERROUS SULFATE 325 MG (65 MG ELEMENTAL IRON) TAB PO SCH ×2 (08:57→12:10)
[2016-12-06] MEDS: MORPHINE SULFATE 30 MG CONTROLLED RELEASE TAB PO SCH (08:57)
[2016-12-06] MEDS: POLYETHYLENE GLYCOL 17 GM PKG PO SCH (08:58)
[2016-12-06] MEDS: SODIUM CHLORIDE 0.9% FLUSH 10 ML FLUSH SCH (08:59)
[2016-12-06 11:50] VITALS: BP 118/75; PULSE 84; RESP 20; TEMP 98.2; O2SAT 97
[2016-12-06 15:50] VITALS: BP 109/78; PULSE 94; RESP 20; TEMP 97.5; O2SAT 98
[2016-12-06] MEDS ORDERED: SOD PHOSPHATE/SOD BIPHOSPHATE (ADULT) ENEMA 133ML PR PRN (16:15)
--- NOTE | 2016-12-06 16:21 | HHI.DS ---
Discharge Summary Admission Date Dec 02, 2016 at 23:25 Discharge Date: Dec 06, 2016 Admitting Diagnosis Spontaneous R PTX (1) Pneumothorax Diagnosis: Principal (2) Metastatic lung cancer (metastasis from lung to other site) Diagnosis: Principal (3) SVC syndrome Diagnosis: [facility] Dr. Tyler Hood, Oncology Dr. Vines Pulmonary Medicine Brief History 31-year-old unfortunate very pleasant male presents due to sudden onset shortness of breath. 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 He had been sitting around outdoors for several hours today. Upon standing up he became markedly dyspneic. He reports a constant chest pain normal for him as he has suffered with carcinoma of the lungs. He underwent his last palliative chemotherapy 3 weeks ago as well as radiation therapy a few days ago. He follows with Dr. Hood of oncology. He is due to initiate chemotherapy next week. On the CT of the chest there is a small apical pneumothorax. The patient is admitted to ICU for a pneumothorax observation and follow-up chest x-ray. CBC/BMP: 12/03/16 0437 12/03/16 0437 PE at Discharge GENERAL: This is a well-nourished, well-developed patient, in no apparent distress. CARDIOVASCULAR: Regular rate and rhythm without murmurs, gallops, or rubs. RESPIRATORY: Clear to auscultation. Breath sounds equal bilaterally. No wheezes , rales, or rhonchi. GASTROINTESTINAL: Abdomen soft, non-tender, nondistended. Normal active bowel sounds MUSCULOSKELETAL: Extremities without clubbing, cyanosis, or edema. NEURO: Alert & Oriented x4 to person, place, time, situation. 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 - He also has SVC occlusion chronically with collaterals - Pt admitted with spontaneous pneumothorax right lung. - Pt treated conservatively and improved - repeat CT chest (12/04/16) - decrease of right apical pneumo with small residual right apical pneumothorax - continued right upper lobe mass - continued mediastinal lymphadenopathy - Pt reevaluated 12/06/16 - Pt with adequate pain control and will be discharged to home. - Case d/w Dr. Hood 12/05/16 (2) Metastatic lung cancer (metastasis from lung to other site) Status: Chronic Plan: - mgmt per Oncology, Dr. Hood (3) SVC syndrome Status: Chronic Plan: see above Pt Condition on Discharge: Stable Discharge Disposition: Discharge Home Discharge Instructions DIET: Follow Instructions for: As Tolerated, No Restrictions, Heart Healthy Diet Activities you can perform: Regular-No Restrictions Follow up Referrals: Oncology - [address] Hood Continued Medications: Albuterol 18 GM Inh (Ventolin Hfa 18 GM Inh) 90 Mcg/Act Aer 2 PUFF INH Q4-6H PRN SHORTNESS OF BREATH #1 Ref 0 INHALER Apixaban (Eliquis) 2.5 Mg Tab 2.5 MG PO BID Blood Clot Prevention Ref 0 TAB Doxylamine Succinate (Sleep) (Unisom) 25 Mg Tab 25 MG PO HS PRN INSOMNIA TAB Ferrous Sulfate (Ferrous Sulfate) 325 Mg Tab 325 MG PO TID Nutritional Supplement #30 Ref 0 TAB Folic Acid (Folic Acid) 400 Mcg Tab 400 MCG PO DAILY Nutritional Supplement Ref 0 TAB Morphine ER (Ms Contin) 30 Mg Tab 45 MG PO BID Pain Management Ref 0 TAB Multiple Vitamin (Multi Vitamin) 1 Tab Tab 1 TAB PO DAILY TAB Naproxen Sodium (Aleve) 220 Mg Tab 220 MG PO BID PRN Pain Management Ref 0 TAB Ondansetron (Zofran) 4 Mg Tab 4 MG PO Q6HR PRN NAUSEA OR VOMITING Ref 0 TAB Oxycodone (Oxycodone) 5 Mg Cap 15 MG PO Q4H PRN PAIN Ref 0 CAP Pantoprazole (Protonix) 40 Mg Tab 40 MG PO DAILY Reflux #30 Ref 0 TAB Polyethylene Glycol 3350 Powder (Miralax Powder) 17 Gm Powd 17 GM PO BID Mix and dissolve one measuring cap-ful (17 grams) in water or juice. Constipation #1 Ref 0 BOTTLE Promethazine (Phenergan) 25 Mg Tab 25 MG INJ Q6H PRN Nausea/Vomiting Ref 0 TAB Sertraline (Sertraline) 100 Mg Tab 100 MG PO DAILY #30 Ref 0 TAB Zolpidem (Ambien) 5 Mg Tab 5 MG PO HS PRN INSOMNIA Ref 0 TAB Dago Regalado DO Dec 06, 2016 16:21
== END 2016-12-06 17:30 | disposition home or self-care (01) | DRG 200 ==
LOC: NEPC 20:21 → NEDA 23:25 → HIME 12-03 01:25 → HOCA 12-05 20:24
PROVIDERS: ADMIT Internal Medicine Critical Care Medicine; ATTEND Internal Medicine Critical Care Medicine
DX: J93.83 Other pneumothorax (principal); C79.51 Secondary malignant neoplasm of bone; C34.91 Malignant neoplasm of unspecified part of right bronchus or lung; I87.1 Compression of vein; Z79.02 Long term (current) use of antithrombotics/antiplatelets; G89.3 Neoplasm related pain (acute) (chronic); D63.8 Anemia in other chronic diseases classified elsewhere; F32.9 Major depressive disorder, single episode, unspecified; Q03.9 Congenital hydrocephalus, unspecified; Z98.2 Presence of cerebrospinal fluid drainage device; G47.00 Insomnia, unspecified; J45.909 Unspecified asthma, uncomplicated; Z92.3 Personal history of irradiation; Z92.21 Personal history of antineoplastic chemotherapy; Z87.891 Personal history of nicotine dependence; Z88.8 Allergy status to other drugs, medicaments and biological substances
CPT/HCPCS: 36415; 71010; 71250; 71275; 77336; 77387; 77412; 77427; 80048; 80053; 83735; 84100; 84484; 85025; 85610; 85730; 87641; 93005; 94620; 96365; J1170; J1642; J3489; J7030; J7050; Q9967

== ENCOUNTER 2016-12-26 14:08 | Observation (INO) | payer MEDICAID, OTHER ==
[~2016-12-26] VITALS: Ht 193 cm; Wt 68.0 kg
[~2016-12-26 14:08] MED LIST changes: +AMBI5TAB PO
[2016-12-26 14:12] VITALS: BP 106/65; PULSE 102; TEMP 97.8; O2SAT 96
[2016-12-26 14:45] VITALS: BP 124/74; PULSE 92; RESP 22; TEMP 98.4; O2SAT 98
[2016-12-26] MEDS ORDERED: SODIUM CHLORIDE 0.9% FLUSH 10 ML FLUSH IVF PRN (15:00)
[2016-12-26 15:04] VITALS: O2SAT 98
--- NOTE | 2016-12-26 15:22 | PD ---
HPI Chief Complaint: Respiratory Distress Time Seen by Provider: 14:37 Travel History International Travel<30 days: No Contact w/Intl Traveler<30days: No Traveled to known affect area: No History of Present Illness HPI The patient is a 31-year-old male who presents to the emergency department for shortness of breath. The patient has a history of poorly differentiated lung carcinoma and is currently being treated by his oncologist, Dr. Hood. The patient has undergone radiation therapy, stopped approximately 3 weeks ago after completing his treatment. 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 The patient notes increasing shortness of breath over the last 24 hours which is worse with lying supine and with exertion. Patient does have a history of a previous pericardial effusion, however, states the pericardial effusion was not drained. He also has a history of previous pneumothorax without the need for tube thoracostomy. 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 The patient does note the shortness of breath is worse with exertion and lying supine, minimally alleviated with sitting upright, also complains of mild anterior chest discomfort. He does note a dry nonproductive cough, denies any fever. He denies any nausea, vomiting, or abdominal pain. The patient does have a history of 12 year tobacco use history one pack of cigarettes per day, prior to carcinoma diagnosis. PFSH Past Medical History Arthritis: No Anxiety: Yes Depression: Yes Heart Rhythm Problems: No Cancer: Yes (lung stage 4) Cardiovascular Problems: No Chemotherapy: Yes (OCTOBER 20, 2016) Chest Pain: No Congestive Heart Failure: No Cerebrovascular Accident: No Diabetes: No Diminished Hearing: No Endocrine: No GERD: No Genitourinary: No Hiatal Hernia: No Immune Disorder: No Implanted Vascular Access Dvce: Yes (left chest port) Kidney Stones: No Musculoskeletal: No Neurologic: Yes (HYDROCEPHALIS) Psychiatric: Yes Reproductive: No Respiratory: Yes (POSSIBLE ASTHMA) Immunizations Current: Yes Migraines: No Radiation Therapy: Yes Renal Failure: No Sleep Apnea: No Thyroid Disease: No Ulcer: No Past Surgical History Abdominal Surgery: No AICD: No Body Medical Devices: [employer]T Cardiac Surgery: No Ear Surgery: No Eye Surgery: No Genitourinary Surgery: No Gynecologic Surgery: No Insulin Pump: No Joint Replacement: No Neurologic Surgery: Yes ([employer] SHUNT WITH REVISION AST IN 1991) Oral Surgery: No Pacemaker: No Thoracic Surgery: No Other Surgery: Yes (PYELONIDAL CYST REMOVAL) Social History Alcohol Use: No Tobacco Use: No (quit) Substance Use: No Allergies-Medications (Allergen,Severity, Reaction): Coded Allergies: No Known Allergies (Verified , 12/26/16) Reported Meds & Prescriptions Reported Meds & Active Scripts Active Reported Dronabinol 5 Mg Cap 5 Mg PO BID Gabapentin 300 Mg Cap 300 Mg PO HS Ambien (Zolpidem Tartrate) 5 Mg Tab 5 Mg PO HS PRN Folic Acid 400 Mcg Tab 400 Mcg PO DAILY Miralax Powder (Polyethylene Glycol 3350 Powder) 17 Gm Powd 17 Gm PO BID Mix and dissolve one measuring cap-ful (17 grams) in water or juice. Oxycodone (Oxycodone HCl) 5 Mg Cap 15 Mg PO Q4H PRN Ms Contin (Morphine Sulfate) 30 Mg Tab 45 Mg PO BID Sertraline (Sertraline HCl) 100 Mg Tab 100 Mg PO DAILY Phenergan (Promethazine HCl) 25 Mg Tab 25 Mg INJ Q6H PRN Protonix (Pantoprazole Sodium) 40 Mg Tab 40 Mg PO DAILY Zofran (Ondansetron HCl) 4 Mg Tab 4 Mg PO Q6HR PRN Aleve (Naproxen Sodium) 220 Mg Tab 220 Mg PO BID PRN Multi Vitamin (Multiple Vitamin) 1 Tab Tab 1 Tab PO DAILY Ferrous Sulfate 325 Mg Tab 325 Mg PO BID Unisom (Doxylamine Succinate (Sleep)) 25 Mg Tab 25 Mg PO HS PRN Eliquis (Apixaban) 2.5 Mg Tab 2.5 Mg PO BID Ventolin Hfa 18 GM Inh (Albuterol Sulfate) 90 Mcg/Act Aer 2 Puff INH Q4-6H PRN Review of Systems Except as stated in HPI: all other systems reviewed are Neg General / Constitutional: No: Fever HENT: No: Lightheadedness Cardiovascular: Positive: Chest Pain or Discomfort, Dyspnea on exertion Respiratory: Positive: Cough, Shortness of Breath Gastrointestinal: No: Nausea, Vomiting, Abdominal Pain Musculoskeletal: No: Weakness Neurologic: No: Weakness, Dizziness Physical Exam Narrative GENERAL: Awake, alert, pleasant 31-year-old male who appears his stated age and is in mild respiratory distress. Slightly cachectic appearance. SKIN: Focused skin assessment warm/dry. HEAD: Atraumatic. Normocephalic. EYES: No injection or drainage. ENT: No nasal bleeding or discharge. Mucous membranes pink and moist. NECK: Trachea midline. No JVD. CARDIOVASCULAR: Regular rate and rhythm. No murmur appreciated. Heart rate in the 90s. RESPIRATORY: No accessory muscle use. Mildly diminished in the right base. GASTROINTESTINAL: Abdomen soft, non-tender, nondistended. No rebound tenderness. MUSCULOSKELETAL: No obvious deformities. No clubbing. No cyanosis. No edema. NEUROLOGICAL: Awake and alert. No obvious cranial nerve deficits. Motor grossly within normal limits. Normal speech. PSYCHIATRIC: Appropriate mood and affect; insight and judgment normal. Data Data Last Documented VS Vital Signs Date Time Temp Pulse Resp B/P Pulse Ox O2 Delivery O2 Flow Rate FiO2 12/26/16 15:48 Nasal Cannula 2 12/26/16 15:04 97 12/26/16 14:45 98.4 92 22 124/74 Orders Complete Blood Count With Diff (12/26/16 14:49) Comprehensive Metabolic Panel (12/26/16 14:49) B-Type Natriuretic Peptide (12/26/16 14:49) Act Partial Throm Time (Ptt) (12/26/16 14:49) Prothrombin Time / Inr (Pt) (12/26/16 14:49) Magnesium (Mg) (12/26/16 14:49) Iv Access Insert/Monitor (12/26/16 14:49) Electrocardiogram (12/26/16 14:49) Ecg Monitoring (12/26/16 14:49) Oximetry (12/26/16 14:49) Oxygen Administration (12/26/16 14:49) Chest, Single Ap (12/26/16 14:49) Sodium Chloride 0.9% Flush (Ns Flush) (12/26/16 15:00) Ed Poc Ultrasound (12/26/16 14:49) Ct Brain W/O Iv Contrast(Rout) (12/26/16 ) Ct Thorax/ Chest Wo Iv Contras (12/26/16 ) Invasive Rad Dept Consult (12/26/16 16:23) Admit Order (Ed Use Only) (12/26/16 16:28) Labs Laboratory Tests Test 12/26/16 15:41 White Blood Count 7.7 TH/MM3 Red Blood Count 3.96 MIL/MM3 Hemoglobin 11.7 GM/DL Hematocrit 34.0 % Mean Corpuscular Volume 85.9 FL Mean Corpuscular Hemoglobin 29.6 PG Mean Corpuscular Hemoglobin 34.4 % Concent Red Cell Distribution Width 18.6 % Platelet Count 263 TH/MM3 Mean Platelet Volume 8.0 FL Neutrophils (%) (Auto) 76.8 % Lymphocytes (%) (Auto) 4.4 % Monocytes (%) (Auto) 18.3 % Eosinophils (%) (Auto) 0.4 % Basophils (%) (Auto) 0.1 % Neutrophils # (Auto) 5.9 TH/MM3 Lymphocytes # (Auto) 0.3 TH/MM3 Monocytes # (Auto) 1.4 TH/MM3 Eosinophils # (Auto) 0.0 TH/MM3 Basophils # (Auto) 0.0 TH/MM3 CBC Comment DIFF FINAL Differential Comment Prothrombin Time 12.7 SEC Prothromb Time International 1.1 RATIO Ratio Activated Partial 41.5 SEC Thromboplast Time Sodium Level 134 MEQ/L Potassium Level 3.8 MEQ/L Chloride Level 99 MEQ/L Carbon Dioxide Level 23.1 MEQ/L Anion Gap 12 MEQ/L Blood Urea Nitrogen 11 MG/DL Creatinine 0.55 MG/DL Estimat Glomerular Filtration 172 ML/MIN Rate Random Glucose 68 MG/DL Calcium Level 9.2 MG/DL Magnesium Level 2.3 MG/DL Total Bilirubin 0.8 MG/DL Aspartate Amino Transf 16 U/L (AST/SGOT) Alanine Aminotransferase 12 U/L (ALT/SGPT) Alkaline Phosphatase 87 U/L B-Type Natriuretic Peptide 38 PG/ML Total Protein 7.6 GM/DL Albumin 2.7 GM/DL [facility] Medical Decision Making Medical Screen Exam Complete: Yes Emergency Medical Condition: Yes Medical Record Reviewed: Yes Interpretation(s) EKG reveals normal sinus rhythm with a rate in 92. Nonspecific ST-T wave changes. Low QRS voltage in limb leads. Last Impressions Chest X-Ray 12/26/16 1449 Signed Impressions: Service Date/Time: Monday, December 26, 2016 15:17 - CONCLUSION: Unchanged right upper lobe opacity with loss.. True Olmstead MD CT the brain reveals no acute intracranial abnormality. Right frontal ventriculostomy catheter with normal-sized ventricles. There is a new distractive lytic lesion involving the left frontal calvarium. Metastatic lesion is suspected. Last Impressions Chest X-Ray 12/26/16 1449 Signed Impressions: Service Date/Time: Monday, December 26, 2016 15:17 - CONCLUSION: Unchanged right upper lobe opacity with loss.. True Olmstead MD Head CT 12/26/16 0000 Signed Impressions: Service Date/Time: Monday, December 26, 2016 15:46 - CONCLUSION: 1. No acute intracranial abnormality. 2. Right frontal ventriculostomy catheter with normal-sized ventricles. 3. There is a new destructive lytic lesion involving the left frontal calvarium. Metastatic lesion is suspected. True Olmstead MD Chest CT 12/26/16 0000 Signed Impressions: Service Date/Time: Monday, December 26, 2016 15:50 - CONCLUSION: 1. Right upper lobe mass characteristic of malignancy with post therapy changes also present in the right upper lobe. PET/CT scan is recommended to further evaluation if clinically indicated. 2. Destructive mass in the posterior left chest wall with associated rib destruction characteristic of malignancy. 3. Bilateral effusions increased in size when compared to the prior study. Felice King MD Laboratory Tests Test 12/26/16 15:41 White Blood Count 7.7 TH/MM3 Red Blood Count 3.96 MIL/MM3 Hemoglobin 11.7 GM/DL Hematocrit 34.0 % Mean Corpuscular Volume 85.9 FL Mean Corpuscular Hemoglobin 29.6 PG Mean Corpuscular Hemoglobin 34.4 % Concent Red Cell Distribution Width 18.6 % Platelet Count 263 TH/MM3 Mean Platelet Volume 8.0 FL Neutrophils (%) (Auto) 76.8 % Lymphocytes (%) (Auto) 4.4 % Monocytes (%) (Auto) 18.3 % Eosinophils (%) (Auto) 0.4 % Basophils (%) (Auto) 0.1 % Neutrophils # (Auto) 5.9 TH/MM3 Lymphocytes # (Auto) 0.3 TH/MM3 Monocytes # (Auto) 1.4 TH/MM3 Eosinophils # (Auto) 0.0 TH/MM3 Basophils # (Auto) 0.0 TH/MM3 CBC Comment DIFF FINAL Differential Comment Prothrombin Time 12.7 SEC Prothromb Time International 1.1 RATIO Ratio Activated Partial 41.5 SEC Thromboplast Time Sodium Level 134 MEQ/L Potassium Level 3.8 MEQ/L Chloride Level 99 MEQ/L Carbon Dioxide Level 23.1 MEQ/L Anion Gap 12 MEQ/L Blood Urea Nitrogen 11 MG/DL Creatinine 0.55 MG/DL Estimat Glomerular Filtration 172 ML/MIN Rate Random Glucose 68 MG/DL Calcium Level 9.2 MG/DL Magnesium Level 2.3 MG/DL Total Bilirubin 0.8 MG/DL Aspartate Amino Transf 16 U/L (AST/SGOT) Alanine Aminotransferase 12 U/L (ALT/SGPT) Alkaline Phosphatase 87 U/L B-Type Natriuretic Peptide 38 PG/ML Total Protein 7.6 GM/DL Albumin 2.7 GM/DL Differential Diagnosis Differential diagnosis includes pericardial effusion, pneumonia, pleural effusion, pneumothorax, pulmonary embolism, lung carcinoma. Narrative Course IV was established, labs are drawn and sent, and the patient was placed on cardiac telemetry monitoring and continuous pulse oximetry monitoring. Bedside ultrasound was performed, was difficult to get a good view, however, there did appear to be a small pericardial effusion. Unable to assess for tamponade physiology. Chest x-ray was obtained. The patient complains of dizziness, has a known history metastasis to the skull, therefore, CT the brain was obtained as well as CT of the thorax. The patient was placed on oxygen via nasal cannula. Chest x-ray reveals no pneumothorax. CT of the thorax reveals a right pleural effusion, I discussed the patient with the reading radiologist, Dr. Olmstead, after discussion it was agreed the patient may have enough fluid there to have an ultrasound-guided thoracentesis for symptomatic relief. CT the brain reveals a calvarium metastases, no visible intracerebral metastasis. I do discussion with the patient regarding 23 hour observation for therapeutic thoracentesis and possible echocardiogram, he is agreeable. Therefore, the on- call [facility] physician was paged. The patient was unable to have the ultrasound-guided thoracentesis today secondary to being on Eliquis, must be off Eliquis for 24 hours. Therefore, patient's Eliquis will be held tonight and tomorrow, patient will be able to have his thoracentesis performed tomorrow. Procedures Procedure Narrative A bedside ultrasound was performed with a cardiac probe to assess for possible pericardial effusion. There did appear to be a pericardial effusion, however, is unable to assess whether there was A non-physiology. The patient tolerated the procedure without difficulty and there was no obvious complications. Physician Communication Physician Communication The on-call [facility] physician was paged for 23 hour observation. Diagnosis Primary Impression: Pleural effusion, right Additional Impressions: Mediastinal mass Pericardial effusion Admitting Information Admitting Physician Requests: Observation Condition: Stable Cristobal Nuñez MD December 26, 2016 15:22
[2016-12-26] MEDS ORDERED: GABA300C5 PO (15:23)
[2016-12-26] MEDS ORDERED: DRON5CAP PO (15:23)
--- NOTE | 2016-12-26 15:26 | RADRPT ---
EXAM DATE/TIME: 12/26/2016 15:17 [facility] COMPARISON: CHEST SINGLE AP, December 04, 2016, 4:34. INDICATIONS : Shortness of breath. MEDICAL HISTORY : Carcinoma, lung. SURGICAL HISTORY : None. ENCOUNTER: Initial ACUITY: 1 day PAIN SCORE: 0/10 LOCATION: Bilateral chest FINDINGS: A single view of the chest demonstrates right upper lobe opacity. Volume loss on the right. Left-side d portacatheter unchanged. Left-sided SVC noted. Osseous structures are intact. Right-sided [employer] shunt catheter noted. CONCLUSION: Unchanged right upper lobe opacity with loss.. True Olmstead MD on December 26, 2016 at 15:23 Board Certified Radiologist. This report was verified electronically.
--- NOTE | 2016-12-26 16:02 | RADRPT ---
EXAM DATE/TIME: 12/26/2016 15:46 [facility] COMPARISON: No previous studies available for comparison. INDICATIONS : Dizziness for one week. RADIATION DOSE: 56.35 CTDIvol (mGy) MEDICAL HISTORY : Carcinoma, lung. SURGICAL HISTORY : Port for chemo, Shunt. ENCOUNTER: Initial ACUITY: 1 week PAIN SCALE: 0/10 LOCATION: Bilateral cranial TECHNIQUE: Multiple contiguous axial images were obtained of the head. Using automated exposure control and adj ustment of the mA and/or kV according to patient size, radiation dose was kept as low as reasonably a chievable to obtain optimal diagnostic quality images. FINDINGS: CEREBRUM: Right frontal ventriculostomy catheter with tip in the region of the frontal horn of right lateral ve ntricle. The ventricles are normal for age. No evidence of midline shift, mass lesion, hemorrhage or acute infarction. No extra-axial fluid collections are seen. POSTERIOR FOSSA: The cerebellum and brainstem are intact. The 4th ventricle is midline. The cerebellopontine angle i s unremarkable. EXTRACRANIAL: The visualized portion of the orbits is intact. SKULL: Destructive lytic lesion involving the anterior left frontal calvarium. No evidence of skull fractur e. CONCLUSION: 1. No acute intracranial abnormality. 2. Right frontal ventriculostomy catheter with normal-sized ventricles. 3. There is a new destructive lytic lesion involving the left frontal calvarium. Metastatic lesion is suspected. True Olmstead MD on December 26, 2016 at 15:56 Board Certified Radiologist. This report was verified electronically.
[2016-12-26 16:07] LABS: AUTOMATED NEUTROPHIL # 5.9 TH/MM3 (1.8-7.7); BASOPHIL % 0.1 % (0.0-2.0); EOSINOPHIL % 0.4 % (0.0-4.0); HEMO FLAGS DIFF FINAL; LYMPH % 4.4 % (9.0-44.0); LYMPHOCYTE # 0.3 TH/MM3 (1.0-4.8); MEAN CELL VOLUME 85.9 FL (80.0-100.0); MEAN CORPUSCULAR HEMOGLOBIN 29.6 PG (27.0-34.0); MEAN CORPUSCULAR HGB CONC 34.4 % (32.0-36.0); MONO % 18.3 % (0.0-8.0); NEUT % 76.8 % (16.0-70.0); PLATELET COUNT 263 TH/MM3 (150-450); RED BLOOD COUNT 3.96 MIL/MM3 (4.50-5.90); RED CELL DISTRIBUTION WIDTH 18.6 % (11.6-17.2); WHITE BLOOD COUNT 7.7 TH/MM3 (4.0-11.0)
[2016-12-26 16:20] LABS: APTT (PATIENT) 41.5 SEC (24.3-30.1); INTERNATIONAL NORMALIZED RATIO 1.1 RATIO; PROTHROMBIN TIME - PATIENT 12.7 SEC (9.8-11.6)
[2016-12-26 16:31] LABS: ALT (GPT) 12 U/L (12-78); ANION GAP 12 MEQ/L (5-15); AST (GOT) 16 U/L (15-37); BICARBONATE 23.1 MEQ/L (21.0-32.0); BLOOD UREA NITROGEN 11 MG/DL (7-18); CHLORIDE 99 MEQ/L (98-107); GLOMERULAR FILTRATION RATE 172 ML/MIN (>89); MAGNESIUM 2.3 MG/DL (1.5-2.5); POTASSIUM 3.8 MEQ/L (3.5-5.1); SODIUM (NA) 134 MEQ/L (136-145)
[2016-12-26 16:33] LABS: ALKALINE PHOSPHATASE 87 U/L (45-117); TOTAL BILIRUBIN ADULT 0.8 MG/DL (0.2-1.0)
--- NOTE | 2016-12-26 17:01 | RADRPT ---
EXAM DATE/TIME: 12/26/2016 15:50 [facility] COMPARISON: CT THORAX W/O CONTRAST, December 04, 2016, 10:07. INDICATIONS : Shortness of breath. RADIATION DOSE: 5.71 CTDIvol (mGy) MEDICAL HISTORY : Carcinoma, lung. SURGICAL HISTORY : Port for chemo, Shunt. ENCOUNTER: Initial ACUITY: 1 day PAIN SCALE: 6/10 LOCATION: Bilateral chest TECHNIQUE: Volumetric scanning of the chest was performed. Using automated exposure control and adjustment of t he mA and/or kV according to patient size, radiation dose was kept as low as reasonably achievable to obtain optimal diagnostic quality images. FINDINGS: There is panlobular emphysematous changes in the upper lobes bilaterally. There is a 3 cm mass in the right upper lobe slightly smaller than the prior study where it measured 3.1 cm which may reflect ne oplasm or post therapy change. There is confluent density in the right upper lobe medial to this as w ell and in the right hilum which may reflect post therapy changes as well. Bilateral effusions are pr esent right greater than left. There is a soft tissue mass in the left chest wall posteriorly with gilles ne destruction characteristic of neoplasm. This is destroying the left pedicle in the thoracic spine as well as the transverse process. No epidural soft tissue masses identified. Examination the mediastinum demonstrates enlarged right paratracheal node characteristic of metastati c disease with a calcified lymph node adjacent this which may be post therapy in nature. The visualized upper abdomen demonstrates no abnormality. Graft a left-sided port is in place though the tip appears to Within the left internal mammary vein. CONCLUSION: 1. Right upper lobe mass characteristic of malignancy with post therapy changes also present in the r ight upper lobe. PET/CT scan is recommended to further evaluation if clinically indicated. 2. Destructive mass in the posterior left chest wall with associated rib destruction characteristic o f malignancy. 3. Bilateral effusions increased in size when compared to the prior study. Felice King MD on December 26, 2016 at 16:39 Board Certified Radiologist. This report was verified electronically.
[2016-12-26] MEDS ORDERED: ONDANSETRON ODT 4 MG TAB PO PRN (18:15)
[2016-12-26] MEDS ORDERED: ALBUTEROL SULFATE 90 MCG/ACT HFA 18 GM INHALER INH PRN (18:15)
[2016-12-26] MEDS ORDERED: ZOLPIDEM TARTRATE 5 MG TAB PO PRN (18:15)
--- NOTE | 2016-12-26 18:19 | HHI.HP ---
HPI Service [facility] Primary Care Physician Cam Palacios MD Admission Diagnosis right pleural effusion. 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 he had initial pericardiocentesis and pericarditis. Noted to have bone mets. Pt had initiation of chemoradiation and follows with dR Hood. he was admitted last month with right pneumothorax treated with just oxygen and no chest tube. pt presents with more sob starting yesterday. I was called to admit pt overnight for right thoracentesis. ED spoke with radiology as there has been increase in pleural effusion. some pleurisy is noted on that right side. Review of Systems Other sob/right pleurisy Past Family Social History Past Medical History adenoca right lung, dx May 2016. mediastinal mass svc syndrome, near occlusion right pulmonary art. right pleural effusion and pericardial effusion. rib mets. radiation and now chemotherapy with dr Hood right ptx hx VPS pilonidal cyst surgery Reported Medications Reported Meds & Active Scripts Active Reported Dronabinol 5 Mg Cap 5 Mg PO BID Gabapentin 300 Mg Cap 300 Mg PO HS Ambien (Zolpidem Tartrate) 5 Mg Tab 5 Mg PO HS PRN Folic Acid 400 Mcg Tab 400 Mcg PO DAILY Miralax Powder (Polyethylene Glycol 3350 Powder) 17 Gm Powd 17 Gm PO BID Mix and dissolve one measuring cap-ful (17 grams) in water or juice. Oxycodone (Oxycodone HCl) 5 Mg Cap 15 Mg PO Q4H PRN Ms Contin (Morphine Sulfate) 30 Mg Tab 45 Mg PO BID Sertraline (Sertraline HCl) 100 Mg Tab 100 Mg PO DAILY Phenergan (Promethazine HCl) 25 Mg Tab 25 Mg INJ Q6H PRN Protonix (Pantoprazole Sodium) 40 Mg Tab 40 Mg PO DAILY Zofran (Ondansetron HCl) 4 Mg Tab 4 Mg PO Q6HR PRN Aleve (Naproxen Sodium) 220 Mg Tab 220 Mg PO BID PRN Multi Vitamin (Multiple Vitamin) 1 Tab Tab 1 Tab PO DAILY Ferrous Sulfate 325 Mg Tab 325 Mg PO BID Unisom (Doxylamine Succinate (Sleep)) 25 Mg Tab 25 Mg PO HS PRN Eliquis (Apixaban) 2.5 Mg Tab 2.5 Mg PO BID Ventolin Hfa 18 GM Inh (Albuterol Sulfate) 90 Mcg/Act Aer 2 Puff INH Q4-6H PRN Allergies: Coded Allergies: No Known Allergies (Verified , 12/26/16) Family History nc Social History 10yrs 1ppd tob . quit 2014 Physical Exam Vital Signs nad oriented heart reg lung right lung diminished base abd s/nt ext no edema Vital Signs Date Time Temp Pulse Resp B/P Pulse Ox O2 Delivery O2 Flow Rate FiO2 12/26/16 15:48 Nasal Cannula 2 12/26/16 15:04 97 Nasal Cannula 2 12/26/16 15:04 98 Nasal Cannula 2 12/26/16 14:45 98.4 92 22 124/74 98 Nasal Cannula 12/26/16 14:12 97.8 102 106/65 96 Laboratory Laboratory Tests Test 12/26/16 15:41 White Blood Count 7.7 Red Blood Count 3.96 Hemoglobin 11.7 Hematocrit 34.0 Mean Corpuscular Volume 85.9 Mean Corpuscular Hemoglobin 29.6 Mean Corpuscular Hemoglobin 34.4 Concent Red Cell Distribution Width 18.6 Platelet Count 263 Mean Platelet Volume 8.0 Neutrophils (%) (Auto) 76.8 Lymphocytes (%) (Auto) 4.4 Monocytes (%) (Auto) 18.3 Eosinophils (%) (Auto) 0.4 Basophils (%) (Auto) 0.1 Neutrophils # (Auto) 5.9 Lymphocytes # (Auto) 0.3 Monocytes # (Auto) 1.4 Eosinophils # (Auto) 0.0 Basophils # (Auto) 0.0 CBC Comment DIFF FINAL Differential Comment Prothrombin Time 12.7 Prothromb Time International 1.1 Ratio Activated Partial 41.5 Thromboplast Time Sodium Level 134 Potassium Level 3.8 Chloride Level 99 Carbon Dioxide Level 23.1 Anion Gap 12 Blood Urea Nitrogen 11 Creatinine 0.55 Estimat Glomerular Filtration 172 Rate Random Glucose 68 Calcium Level 9.2 Magnesium Level 2.3 Total Bilirubin 0.8 Aspartate Amino Transf 16 (AST/SGOT) Alanine Aminotransferase 12 (ALT/SGPT) Alkaline Phosphatase 87 B-Type Natriuretic Peptide 38 Total Protein 7.6 Albumin 2.7 Result Diagram: 12/26/16 1541 12/26/16 1541 Assessment and Plan Problem List: (1) Pleural effusion, right Status: Acute Plan: Pt is 31 yo dx with adenoca 05/28. rightl lung mass/mediastinal mass/ svc syndrome/near occlusion right pulnonary art/pericardial effusion/bone mets. chemoradiation. recent admission for right ptx. observe overnight radiology consulted for us guided right thoracentesis hold eliquis tonight If symptoms improve then d/c tomorrow and pt says has appt with dr Hood on for more chemo. cont pain meds. (2) Metastatic lung cancer (metastasis from lung to other site) Status: Chronic Plan: see above (3) SVC syndrome Status: Chronic Plan: above Rom Benjamin MD December 26, 2016 18:19
[2016-12-26 18:23] VITALS: BP 99/56; PULSE 85; O2SAT 98
[2016-12-26 19:11] VITALS: BP 109/72; PULSE 85; RESP 18; O2SAT 98
[2016-12-26] MEDS ORDERED: GABAPENTIN 300 MG CAP PO SCH (21:00)
[2016-12-26 21:10] VITALS: BP 116/70; PULSE 92; RESP 21; TEMP 98.8; O2SAT 92
[2016-12-26] MEDS: FERROUS SULFATE 325 MG (65 MG ELEMENTAL IRON) TAB PO SCH (22:43)
[2016-12-26] MEDS: MORPHINE SULFATE 15 MG CONTROLLED RELEASE TAB PO SCH (22:53)
[2016-12-26] MEDS: DRONABINOL 5 MG CAP PO SCH (22:53)
--- NOTE | 2016-12-27 08:58 | HHI.PR ---
Subjective Remarks No new complaints. Pt feels that his SOB is improved but he has not been up ambulating yet. Denies any chest pain Objective Vitals Vital Signs Date Time Temp Pulse Resp B/P Pulse Ox O2 Delivery O2 Flow Rate FiO2 12/27/16 00:08 18 12/26/16 21:10 98.8 92 21 116/70 92 12/26/16 19:11 85 18 109/72 98 Nasal Cannula 2 12/26/16 18:23 85 99/56 98 Nasal Cannula 2 12/26/16 15:48 Nasal Cannula 2 12/26/16 15:04 97 Nasal Cannula 2 12/26/16 15:04 98 Nasal Cannula 2 12/26/16 14:45 98.4 92 22 124/74 98 Nasal Cannula 12/26/16 14:12 97.8 102 106/65 96 Result Diagram: 12/26/16 1541 12/26/16 1541 Other Results Laboratory Tests Test 12/26/16 15:41 White Blood Count 7.7 TH/MM3 Red Blood Count 3.96 MIL/MM3 Hemoglobin 11.7 GM/DL Hematocrit 34.0 % Mean Corpuscular Volume 85.9 FL Mean Corpuscular Hemoglobin 29.6 PG Mean Corpuscular Hemoglobin 34.4 % Concent Red Cell Distribution Width 18.6 % Platelet Count 263 TH/MM3 Mean Platelet Volume 8.0 FL Neutrophils (%) (Auto) 76.8 % Lymphocytes (%) (Auto) 4.4 % Monocytes (%) (Auto) 18.3 % Eosinophils (%) (Auto) 0.4 % Basophils (%) (Auto) 0.1 % Neutrophils # (Auto) 5.9 TH/MM3 Lymphocytes # (Auto) 0.3 TH/MM3 Monocytes # (Auto) 1.4 TH/MM3 Eosinophils # (Auto) 0.0 TH/MM3 Basophils # (Auto) 0.0 TH/MM3 CBC Comment DIFF FINAL Differential Comment Prothrombin Time 12.7 SEC Prothromb Time International 1.1 RATIO Ratio Activated Partial 41.5 SEC Thromboplast Time Sodium Level 134 MEQ/L Potassium Level 3.8 MEQ/L Chloride Level 99 MEQ/L Carbon Dioxide Level 23.1 MEQ/L Anion Gap 12 MEQ/L Blood Urea Nitrogen 11 MG/DL Creatinine 0.55 MG/DL Estimat Glomerular Filtration 172 ML/MIN Rate Random Glucose 68 MG/DL Calcium Level 9.2 MG/DL Magnesium Level 2.3 MG/DL Total Bilirubin 0.8 MG/DL Aspartate Amino Transf 16 U/L (AST/SGOT) Alanine Aminotransferase 12 U/L (ALT/SGPT) Alkaline Phosphatase 87 U/L B-Type Natriuretic Peptide 38 PG/ML Total Protein 7.6 GM/DL Albumin 2.7 GM/DL Imaging Last Impressions Chest X-Ray 12/26/16 1449 Signed Impressions: Service Date/Time: Monday, December 26, 2016 15:17 - CONCLUSION: Unchanged right upper lobe opacity with loss.. True Olmstead MD Head CT 12/26/16 0000 Signed Impressions: Service Date/Time: Monday, December 26, 2016 15:46 - CONCLUSION: 1. No acute intracranial abnormality. 2. Right frontal ventriculostomy catheter with normal-sized ventricles. 3. There is a new destructive lytic lesion involving the left frontal calvarium. Metastatic lesion is suspected. True Olmstead MD Chest CT 12/26/16 0000 Signed Impressions: Service Date/Time: Monday, December 26, 2016 15:50 - CONCLUSION: 1. Right upper lobe mass characteristic of malignancy with post therapy changes also present in the right upper lobe. PET/CT scan is recommended to further evaluation if clinically indicated. 2. Destructive mass in the posterior left chest wall with associated rib destruction characteristic of malignancy. 3. Bilateral effusions increased in size when compared to the prior study. Felice King MD Objective Remarks General: NAD, AAOx3 Chest: Decreased breath sounds at the right base Cardiac: Regular Abd: +Bs, soft ND/NT Ext: no edema A/P Problem List: (1) Pleural effusion, right Status: Acute Plan: - Pt is 31 yo dx with adenocarcinoma in 05/2016 with right lung mass/ mediastinal mass/svc syndrome/near occlusion right pulmonary art/pericardial effusion/bone mets. Pt has been undergoing chemoradiation. - He had a recent admission for right ptx which was treated with supplemental O2 , NO CT was placed. - Pt is planned for US guided right thoracentesis this morning. - Pts Eliquis was held yesterday. - If symptoms improve post-thoracentesis then we will anticipate discharge home this afternoon. - Pt says he has appt with Dr Hood on for more chemo. - Cont pain meds. (2) Metastatic lung cancer (metastasis from lung to other site) Status: Chronic Plan: - See above (3) SVC syndrome Status: Chronic Plan: - See above Assessment and Plan Patient examined. Assessment and plan formulated with Mine Pendleton PA-C. I agree with the above. going for right pleural effusion thoracentesis. If doing well after then d/c home with f/u Dr Hood tomorrow and chemo. Mine Pendleton December 27, 2016 08:58 Rom Benjamin MD December 27, 2016 14:55
[2016-12-27] MEDS ORDERED: PANTOPRAZOLE SOD 40 MG DELAYED RELEASE TAB PO SCH (09:00)
[2016-12-27] MEDS ORDERED: MULTIVITAMIN TAB PO SCH (09:00)
[2016-12-27] MEDS ORDERED: SERTRALINE HCL 100 MG TAB PO SCH (09:00)
[2016-12-27] MEDS ORDERED: PNEUMOCOCCAL POLYVALENT INJ 25 MCG/0.5 ML SYR IM ONE (09:00)
[2016-12-27] MEDS ORDERED: FOLIC ACID 1 MG TAB PO SCH (09:00)
[2016-12-27] MEDS: MORPHINE SULFATE 15 MG CONTROLLED RELEASE TAB PO SCH (10:07)
[2016-12-27] MEDS: FERROUS SULFATE 325 MG (65 MG ELEMENTAL IRON) TAB PO SCH (10:08)
[2016-12-27] MEDS: DRONABINOL 5 MG CAP PO SCH (10:10)
--- NOTE | 2016-12-27 11:02 | EKG ---
Date Performed: 12/26/2016 Time Performed: 15:10:48 PTAGE: 31 years EKG: Sinus rhythm NONSPECIFIC ST & T-WAVE ABNORMALITY BORDERLINE ECG NO PREVIOUS TRACING DOCTOR: Boogie Cheema Interpretating Date/Time 12/27/2016 11:00:05
[2016-12-27 11:41] VITALS: BP 100/69; PULSE 89; RESP 20; TEMP 98; O2SAT 94
[2016-12-27 14:32] VITALS: BP 123/81; PULSE 104; RESP 20; TEMP 97; O2SAT 95
--- NOTE | 2016-12-27 14:46 | HHI.DCPOC ---
Discharge Care Plan Diagnosis: (1) Metastatic lung cancer (metastasis from lung to other site) (2) Pleural effusion, right Goals to Promote Your Health * To prevent worsening of your condition and complications * To maintain your health at the optimal level Directions to Meet Your Goals Take your medications as prescribed Follow your dietary instruction Follow activity as directed Keep your appointments as scheduled Take your immunizations and boosters as scheduled If your symptoms worsen call your PCP, if no PCP go to Urgent Care Center or Emergency Room Smoking is Dangerous to Your Health. Avoid second hand smoke Call the 24-hour hour crisis hotline for domestic abuse at Mine Pendleton December 27, 2016 14:46
[2016-12-27 15:00] VITALS: BP 108/80; PULSE 95; RESP 16; TEMP 97.5; O2SAT 96
[2016-12-27 15:20] VITALS: BP 103/70; PULSE 95; RESP 16; O2SAT 96
--- NOTE | 2016-12-27 15:23 | RADRPT ---
EXAM DATE/TIME: 12/27/2016 14:47 [facility] COMPARISON: CHEST SINGLE AP, December 26, 2016, 15:17. INDICATIONS : Post thoracentsis right side. MEDICAL HISTORY : Carcinoma, lung. SURGICAL HISTORY : Port. ENCOUNTER: Subsequent ACUITY: 1 day PAIN SCORE: 0/10 LOCATION: Right chest FINDINGS: A single portable frontal view of the chest shows persistent consolidation within the right upper lob e. No pneumothorax. Consolidation within the left lower lobe is new from the prior study. Heart is no rmal in size. Power port overlies the left chest. Right sided shunt. CONCLUSION: 1. No pneumothorax following right thoracentesis. 2. New left lower lobe infiltrate. 3. Unchanged right upper lobe infiltrate. Vidal Hernandez Jr., MD on December 27, 2016 at 15:18 Board Certified Radiologist. This report was verified electronically.
--- NOTE | 2016-12-27 16:43 | RADRPT ---
EXAM DATE/TIME: 12/27/2016 14:09 [facility] COMPARISON: No previous studies available for comparison. EXTERNAL COMPARISON: [facility], Pet CT Tumor , Sep [address] Chest, POI, 08/29/16 and 07/31/16. INDICATIONS : Right pleural effusion. MEDICAL HISTORY : Carcinoma, lung. Hydrocephalus. 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 Pyelonoidal cyst. ENCOUNTER: Subsequent ACUITY: 2 days PAIN SCORE: 4/10 LOCATION: Right chest FLUID: Total volume of 650 cc of clear yellow green fluid was removed. Fluid was discarded. Thoracentesis was therapeutic only. TECHNIQUE: 1. Ultrasound guidance for thoracentesis. 2. Thoracentesis. The risks, benefits, and alternatives to ultrasound guided thoracentesis were explained to the patien t in lay simple terms, including the risk of bleeding and infection. Written and verbal informed con sent was obtained. Appropriate area for thoracentesis was marked under ultrasound guidance with the patient in the uprig ht position. Overlying skin was prepped and draped in the usual sterile fashion and with local anest hetic, a dermatotomy was made with an 11 blade scalpel. A 6 [place] thoracentesis catheter was placed in the pleural space and fluid was removed. Catheter was then removed and a sterile dressing applie d. There were no immediate complications. The patient tolerated the procedure well and the left the ultrasound suite in stable condition. Chest radiograph is to be obtained. CONCLUSION: Uncomplicated ultrasound guided thoracentesis. Santana Gamino MD FACR on December 27, 2016 at 16:41 Board Certified Radiologist. This report was verified electronically.
== END 2016-12-27 16:57 | disposition home or self-care (01) ==
LOC: NEPE 14:08 → NEDA 16:30 → NEPHCDU 20:40
PROVIDERS: ADMIT Hospitalist; ATTEND Hospitalist
DX: J90 Pleural effusion, not elsewhere classified (principal); I31.3 Pericardial effusion (noninflammatory); R22.2 Localized swelling, mass and lump, trunk; I87.1 Compression of vein; C34.91 Malignant neoplasm of unspecified part of right bronchus or lung; C79.51 Secondary malignant neoplasm of bone; Z79.01 Long term (current) use of anticoagulants; Z87.891 Personal history of nicotine dependence; F41.9 Anxiety disorder, unspecified; F32.9 Major depressive disorder, single episode, unspecified; Z23 Encounter for immunization
CPT/HCPCS: 32555; 70450; 71010; 71250; 80053; 83735; 83880; 85025; 85610; 85730; 90732; 93005; 99285; C1729; G0378

== ENCOUNTER 2017-01-04 21:18 | Inpatient (IN) | payer MEDICAID, OTHER ==
[~2017-01-04] VITALS: Ht 180.3 cm; Wt 68.0 kg
[~2017-01-04 21:18] MED LIST changes: +DRON5CAP PO; +GABA300C5 PO
[2017-01-04 21:20] VITALS: BP 119/71; PULSE 119; RESP 18; TEMP 99.1; O2SAT 95
[2017-01-04] MEDS ORDERED: MORP1TAB25 PO (21:41)
[2017-01-04] MEDS ORDERED: ONDANSETRON HCL 4 MG/2 ML VIAL IV PUSH ONE (22:15)
[2017-01-04] MEDS ORDERED: SODIUM CHLOR 0.9% 1000 ML INJ 1,000 ML IV ONE (22:15)
--- NOTE | 2017-01-04 22:24 | PD ---
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 Pt also had thoracentesis on right side last week and has right sided chest pain and sob. Follows with Dr. Hood. Denies any fever, abdominal pain, focal weakness or numbness. Took zofran at 8pm but immediately vomited. PFSH Past Medical History Arthritis: No Asthma: Yes Blood Disorders: No Anxiety: Yes Depression: Yes Heart Rhythm Problems: No Cancer: Yes (lung stage 4) Cardiovascular Problems: No High Cholesterol: No Chemotherapy: Yes (EVERY 3 WEEKS, DONE LAST SUNDAY (12/28/16)) Chest Pain: No Congestive Heart Failure: No COPD: No Cerebrovascular Accident: No Diabetes: No Diminished Hearing: No Endocrine: No GERD: No Genitourinary: No Hiatal Hernia: No Immune Disorder: No Implanted Vascular Access Dvce: Yes (left chest port) Kidney Stones: No Musculoskeletal: No Neurologic: Yes (HYDROCEPHALIS) Psychiatric: Yes Reproductive: No Respiratory: Yes (POSSIBLE ASTHMA) Immunizations Current: Yes Migraines: No Radiation Therapy: Yes (october 20, 2016) Renal Failure: No Sleep Apnea: No Thyroid Disease: No Ulcer: No Tetanus Vaccination: Unknown Influenza Vaccination: Yes Past Surgical History Abdominal Surgery: No AICD: No Body 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 Cardiac Surgery: No Ear Surgery: No Eye Surgery: No Genitourinary Surgery: No Gynecologic Surgery: No Insulin Pump: No Joint Replacement: No Neurologic Surgery: Yes (ROOFING LABORER SHUNT WITH REVISION AST IN 1991, NERVE BLOCK FOR PAIN (01/03/17)) Oral Surgery: No Pacemaker: No Thoracic Surgery: No Other Surgery: Yes (PYELONIDAL CYST REMOVAL, FLUID REMOVED FROM L LUNG (12/2016) ) Social History Alcohol Use: No Tobacco Use: No Substance Use: No Allergies-Medications (Allergen,Severity, Reaction): Coded Allergies: No Known Allergies (Verified , 01/04/17) Reported Meds & Prescriptions Reported Meds & Active Scripts Active Reported Dronabinol 5 Mg Cap 5 Mg PO BID Gabapentin 300 Mg Cap 300 Mg PO HS Ambien (Zolpidem Tartrate) 5 Mg Tab 5 Mg PO HS PRN Folic Acid 400 Mcg Tab 400 Mcg PO DAILY Miralax Powder (Polyethylene Glycol 3350 Powder) 17 Gm Powd 17 Gm PO BID Mix and dissolve one measuring cap-ful (17 grams) in water or juice. Oxycodone (Oxycodone HCl) 5 Mg Cap 15 Mg PO Q4H PRN Ms Contin (Morphine Sulfate) 30 Mg Tab 45 Mg PO BID Sertraline (Sertraline HCl) 100 Mg Tab 100 Mg PO DAILY Phenergan (Promethazine HCl) 25 Mg Tab 25 Mg INJ Q6H PRN Protonix (Pantoprazole Sodium) 40 Mg Tab 40 Mg PO DAILY Zofran (Ondansetron HCl) 4 Mg Tab 4 Mg PO Q6HR PRN Eliquis (Apixaban) 2.5 Mg Tab 2.5 Mg PO BID Ventolin Hfa 18 GM Inh (Albuterol Sulfate) 90 Mcg/Act Aer 2 Puff INH Q4-6H PRN Review of Systems Except as stated in HPI: all other systems reviewed are Neg Physical Exam Narrative GENERAL: 31yo M cachetic in mild distress. SKIN: Focused skin assessment warm/dry. HEAD: Atraumatic. Normocephalic. EYES: Pupils equal and round. No scleral icterus. No injection or drainage. ENT: No nasal bleeding or discharge. Mucous membranes pink and moist. NECK: Trachea midline. No JVD. CARDIOVASCULAR: Regular rate and rhythm. No murmur appreciated. RESPIRATORY: Saturating at 94% on 1L NC. Mildly decreased breath sounds on right. GASTROINTESTINAL: Abdomen soft, non-tender, nondistended. No rebound tenderness or guarding. MUSCULOSKELETAL: No obvious deformities. No clubbing. No cyanosis. No edema. NEUROLOGICAL: Awake and alert. No obvious cranial nerve deficits. Motor grossly within normal limits. Normal speech. PSYCHIATRIC: Appropriate mood and affect; insight and judgment normal. Data Data Last Documented VS Vital Signs Date Time Temp Pulse Resp B/P Pulse Ox O2 Delivery O2 Flow Rate FiO2 01/04/17 23:29 19 01/04/17 23:21 101 122/77 95 Nasal Cannula 1 01/04/17 21:20 99.1 Orders Chest, Single Ap (01/04/17 ) Complete Blood Count With Diff (01/04/17 22:10) Basic Metabolic Panel (Bmp) (01/04/17 22:10) Ckmb (Isoenzyme) Profile (01/04/17 22:10) Troponin I (01/04/17 22:10) Prothrombin Time / Inr (Pt) (01/04/17 22:10) Act Partial Throm Time (Ptt) (01/04/17 22:10) Ondansetron Inj (Zofran Inj) (01/04/17 22:15) Sodium Chlor 0.9% 1000 Ml Inj (Ns 1000 M (01/04/17 22:15) Morphine Inj (Morphine Inj) (01/04/17 23:00) Blood Culture (01/05/17 00:27) Lactic Acid Sepsis Protocol (01/05/17 00:27) Piperacil-Tazo 3.375 Gm Premix (Zosyn 3. (01/05/17 00:30) Admit Order (Ed Use Only) (01/05/17 00:29) Labs Laboratory Tests Test 01/04/17 22:00 Prothrombin Time 12.0 SEC Prothromb Time International 1.1 RATIO Ratio Activated Partial 32.0 SEC Thromboplast Time Sodium Level 136 MEQ/L Potassium Level 4.1 MEQ/L Chloride Level 99 MEQ/L Carbon Dioxide Level 24.3 MEQ/L Anion Gap 13 MEQ/L Blood Urea Nitrogen 13 MG/DL Creatinine 0.49 MG/DL Estimat Glomerular Filtration 196 ML/MIN Rate Random Glucose 112 MG/DL Calcium Level 8.6 MG/DL Total Creatine Kinase 33 U/L Troponin I LESS THAN 0.02 NG/ML White Blood Count 0.7 TH/MM3 Red Blood Count 3.67 MIL/MM3 Hemoglobin 10.7 GM/DL Hematocrit 31.1 % Mean Corpuscular Volume 84.6 FL Mean Corpuscular Hemoglobin 29.2 PG Mean Corpuscular Hemoglobin 34.5 % Concent Red Cell Distribution Width 18.0 % Platelet Count 206 TH/MM3 Mean Platelet Volume 9.4 FL Neutrophils (%) (Auto) % Lymphocytes (%) (Auto) % Monocytes (%) (Auto) % Eosinophils (%) (Auto) % Basophils (%) (Auto) % Neutrophils # (Auto) TH/MM3 Lymphocytes # (Auto) TH/MM3 Monocytes # (Auto) TH/MM3 Eosinophils # (Auto) TH/MM3 Basophils # (Auto) TH/MM3 CBC Comment AUTO DIFF Differential Total Cells 100 Counted Neutrophils % (Manual) 23 % Band Neutrophils % 12 % Lymphocytes % 16 % Monocytes % 32 % Neutrophils # (Manual) 0.3 TH/MM3 Metamyelocytes 3 % Nucleated Red Blood Cells 1 /100 WBC Differential Comment FINAL DIFF MANUAL Blastocytes 14 % Platelet Estimate NORMAL Platelet Morphology Comment NORMAL MDM Medical Decision Making Medical Screen Exam Complete: Yes Emergency Medical Condition: Yes Differential Diagnosis Pneumothorax vs. pleural effusion vs. chemo induced vomiting Narrative Course 31yo M with stage IV small cell carcinoma here with intractable vomiting after chemo as well as right sided chest pain. Pt given IV zofran here which helped with nausea. Pt given NS IVF for IV hydration. Pt given morphine for pain. Labs reviewed, pt is neutropenic with 0.3 neutrophils. Troponin is negative. CXR showed cavitation in right upper lobe pneumonia. This patient is well known to Dr. Hood and I discussed case with him and he recommended admission and that I order neupogen for his neutropenia which is likely chemo induced. Also recommended zosyn and dexamethasone. Discussed with Dr. Huff and accepted to Dr. Regalado's service. Diagnosis Primary Impression: Metastatic lung cancer (metastasis from lung to other site) Qualified Code: C34.91 - Metastatic lung cancer (metastasis from lung to other site), right Admitting Information Admitting Physician Requests: Admit Lianne Mariano DO January 04, 2017 22:24
--- NOTE | 2017-01-04 22:50 | RADRPT ---
EXAM DATE/TIME: 01/04/2017 22:32 [facility] COMPARISON: CHEST EXPIRATION ONLY, December 27, 2016, 14:47. CT THORAX W/O CONTRAST, December 26, 2016, 15:50. INDICATIONS : Increased shortness of breath and chest pain since thoracentesis one week ago. MEDICAL HISTORY : Carcinoma, lung. SURGICAL HISTORY : Infusaport. ENCOUNTER: [facility]ela ACUITY: 1 week PAIN SCORE: 8/10 LOCATION: Right chest FINDINGS: An area of irregular consolidation and adjacent pleural thickening again seen of the right lung apex. There appears to be some cavitation developing. Left lung remains clear. Left internal jugular Emsywe-k-Yngn catheter again seen, tip in a left internal mammary vein. CONCLUSION: Cavitation developing of the right upper lobe consolidation. Persistent volume loss and pleural thick ening. Jimenez Osman MD on January 04, 2017 at 22:47 Board Certified Radiologist. This report was verified electronically.
[2017-01-04] MEDS ORDERED: MORPHINE SULFATE 4 MG/ML INJ IV PUSH ONE (23:00)
[2017-01-04 23:16] LABS: HEMATOCRIT 31.1 % (39.0-51.0); MEAN CELL VOLUME 84.6 FL (80.0-100.0); MEAN CORPUSCULAR HEMOGLOBIN 29.2 PG (27.0-34.0); MEAN CORPUSCULAR HGB CONC 34.5 % (32.0-36.0); PLATELET COUNT 206 TH/MM3 (150-450); RED BLOOD COUNT 3.67 MIL/MM3 (4.50-5.90); WHITE BLOOD COUNT 0.7 TH/MM3 (4.0-11.0)
[2017-01-04 23:21] VITALS: BP 122/77; PULSE 101; RESP 20; O2SAT 95
[2017-01-04 23:22] LABS: INTERNATIONAL NORMALIZED RATIO 1.1 RATIO
[2017-01-04 23:34] LABS: BICARBONATE 24.3 MEQ/L (21.0-32.0); BLOOD UREA NITROGEN 13 MG/DL (7-18); GLOMERULAR FILTRATION RATE 196 ML/MIN (>89)
[2017-01-04 23:46] LABS: ANION GAP 13 MEQ/L (5-15); CHLORIDE 99 MEQ/L (98-107); POTASSIUM 4.1 MEQ/L (3.5-5.1); SODIUM (NA) 136 MEQ/L (136-145)
[2017-01-04 23:53] LABS: CREATINE KINASE 33 U/L (39-308)
[2017-01-05] VITALS (9 sets, daily range): BP systolic 108–119; BP diastolic 63–71; PULSE 90–112; RESP 16–18; TEMP 98.3–100.2; O2SAT 94–97
[2017-01-05 00:10] LABS: HEMO FLAGS AUTO DIFF
[2017-01-05 00:26] LABS: BANDS 12 % (0-6); BLASTS 14 % (0-0); CORRECTED NUCLEATED RBC 1 /100 WBC (0-0); METAMYELOCYTES 3 % (0-1); POLYS (SEG NEUTROPHILS) 23 % (16-70); WBC DIFF SAMPLE 100
[2017-01-05 00:28] LABS: NEUTROPHIL # MANUAL DIFF 0.3 TH/MM3 (1.8-7.7)
[2017-01-05 00:29] LABS: PLATELET ESTIMATE SMEAR NORMAL (NORMAL); SCAN/DIFF FINAL DIFF MANUAL
[2017-01-05 00:30] LABS: PLATELET MORPHOLOGY NORMAL (NORMAL)
[2017-01-05] MEDS ORDERED: PIPERACIL-TAZO 3.375 GM PREMIX 50 ML IV ONE (00:30)
[2017-01-05] MEDS ORDERED: FILGRASTIM 300 MCG/ML VIAL SQ ONE (00:45)
[2017-01-05] MEDS ORDERED: DEXAMETHASONE SOD PHOS 4 MG/ML VIAL IV PUSH ONE (00:45)
[2017-01-05] MEDS ORDERED: MORPHINE SULFATE 4 MG/ML INJ IV PUSH ONE (02:15)
[2017-01-05] MEDS ORDERED: MORPHINE SULFATE 4 MG/ML INJ IV PRN (05:00)
[2017-01-05] MEDS ORDERED: PIPERACIL-TAZO 4.5 GM PREMIX 100 ML IV SCH ×2 (08:00→08:30)
[2017-01-05] MEDS ORDERED: ONDANSETRON HCL 4 MG/2 ML VIAL IV PUSH PRN (08:15)
--- NOTE | 2017-01-05 08:57 | MB ---
cc: GABINO ROSDAO MD DATE OF CONSULTATION: 01/05/2017 DATE OF : 1985 Consult requested by the ER physicians. REASON FOR CONSULTATION Patient with a diagnosis of metastatic adenocarcinoma of the lung. CURRENT TREATMENT The patient had been on palliative systemic therapy with docetaxel/ramucirumab. CHIEF COMPLAINT Uncontrolled nausea and vomiting for the past 7 days. The day prior to admission he was unable to hold down solids or liquids. The patient also reports severe right-sided chest pain. HISTORY OF PRESENT ILLNESS Mr. Cali is a very pleasant 31-year-old man who was diagnosed in May 2016 with a locally advanced adenocarcinoma of the lung. His disease initially presented as a large mass infiltrating the mediastinum with resultant SVC syndrome and near complete extrinsic compression of the right main pulmonary artery. The primary tumor appeared to involve the right upper lobe of the lung. He was treated with initiation of concurrent chemoradiotherapy and upon conclusion of chemoradiotherapy he rapidly progressed within a few weeks and declared multiple bony metastases some of which involved the ribs and were quite symptomatic. Mr. Cali has since then been on various lines of systemic therapy, he received carboplatin/pemetrexed/Avastin. Within 2 cycles of this treatment he developed a carboplatin-associated anaphylactic reaction. He was therefore switched over to docetaxel and ramucirumab. He is presently on this at this time. Over the past few months we have been attempting to treat his symptomatic bony metastases involving the ribs as well as the lesion involving the frontal bone of the cranium on the left side. He has had some improvement in the pain to the rib metastases since he received palliative radiation. His most recent cycle of chemotherapy was on 12/28/2016 and since then he has had persistent nausea and vomiting. He tells me he has had difficulty holding down liquids and solids and even the smell of food makes him want to vomit. He has not been able to control his symptoms despite oral antiemetic therapy. PAST MEDICAL HISTORY 1. Metastatic adenocarcinoma of lung primary. 2. Malignant pleural effusion. 3. SVC syndrome; on chronic anticoagulation due to the SVC syndrome. 4. Pericardial effusion. 5. Congenital hydrocephalus. 6. Asthma. 7. Anxiety. 8. Depression. 9. Chronic pain. PAST SURGICAL HISTORY 1. PEDIATRIC PHYSICAL THERAPIST shunt placement and revision. 2. Radial shortening surgery. 3. Pilonidal cyst removal. 4. Percutaneous pericardiocentesis. 5. Percutaneous CT-guided biopsy of mediastinal mass. 6. Infusion port placement. FAMILY HISTORY Parents are both alive. Paternal grandmother had pancreas cancer. Paternal grandfather had lung cancer. SOCIAL HISTORY Fred is single, he has no children. 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 He was a former smoker and smoked a pack a day for 10 years but quit in the early part of 2016. He denies recreational drug use. ALLERGIES 1. CARBOPLATIN. 2. CAMPHOR. 3. PACLITAXEL. MEDICATIONS Current inpatient medications: 1. Morphine sulfate long-acting 30 mg p.o. q.8h. 2. Morphine sulfate 4 mg IV every 4 hours as needed for breakthrough pain. 3. Zofran 4 mg IV q.6h. as needed for nausea and vomiting. 4. Neupogen 300 mcg subcu once daily. 5. Dexamethasone 2 mg p.o. q.12h. 6. Zosyn 4.5 grams IV q.8h. 7. D5 half-normal saline with potassium chloride 84 mL per hour. 8. Lovenox 40 mg subcu q. day. REVIEW OF SYSTEMS A 13-point review of systems is obtained. The following are the pertinent positives: CONSTITUTIONAL: The patient reports generalized fatigue, weakness, decreased appetite, weight loss. He denies fevers, other than earlier this morning he recorded a temperature of 100 degrees Fahrenheit. HEENT: Denies headaches, blurry vision, difficulty swallowing or soreness in the throat. RESPIRATORY: Reports shortness of breath with minimal exertion. Reports pleuritic chest pain. Reports right-sided chest pain posteriorly. CARDIOVASCULAR: Reports palpitations. Denies angina-like chest pain, PND, orthopnea or lower extremity swelling. GASTROINTESTINAL: Reports persistent nausea and vomiting. Denies diarrhea, hematochezia or melena. GENITOURINARY: No complaints. MUSCULOSKELETAL: Reports back pain, rib pain, chest pain (musculoskeletal chest pain). 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 PHYSICAL EXAMINATION VITAL SIGNS: Temperature 100 degrees Fahrenheit, heart rate 112 beats per minute, respiratory rate 18 breaths per minute. O2 sats 94% on one liter nasal cannula. Blood pressure 111/68. GENERAL APPEARANCE: ASSESSMENT Fred is a 31-year-old man with a diagnosis of metastatic adenocarcinoma of the lung. His disease has no identifiable driver/sales workers mutations. His disease weakly expresses PDL-1 (1%). He is presently on palliative systemic therapy with docetaxel/ramucirumab, and is status post 3 cycles of this. Unfortunately since his last treatment which was delivered on 12/28/2016 he has had persistent nausea and vomiting. Additionally, he reports severe pain involving his right chest wall related to metastatic disease. He presented to the hospital last night with complaints of nausea, vomiting, dehydration. He was found to be neutropenic with an absolute neutrophil count of 300. He is also having low grade temperatures of 100 degrees Fahrenheit. RECOMMENDATIONS 1. Metastatic adenocarcinoma of the lung with extensive bony metastases, rib metastases, pericardial metastases and intra-abdominal metastases to the adrenal glands. He is on palliative systemic therapy as noted above and seems to be struggling through this. Over the past month and a half his ECOG performance status has been declining and he has had repeated hospitalizations for management of various issues ranging from nausea and vomiting to dehydration to difficulty breathing. Fred had been considering transitioning to Hospice and in fact met with the Hospice representatives earlier this week. He has yet not decided regarding his final decision as to transition his care to Hospice versus to continue aggressive disease directed therapy. I will continue this discussion regarding goals of care in the upcoming days. 2. Neutropenia: Secondary to myelosuppression from chemotherapy. I will continue Neupogen at a dose of 300 mcg subcu daily. Daily CBCs have been ordered. 3. Nausea and vomiting: I have put him on Zofran 4 mg IV q.6h. for nausea. I have also started him on dexamethasone 2 mg p.o. q.12h. which tends to help chemotherapy related nausea and vomiting as well. If his nausea does not respond as I would expect I would consider obtaining imaging studies of the brain to rule out WESTERN TACK ASSEMBLY LINE WORKER metastasis which may be causing central nausea due to increased ICP. 4. Low grade temperature earlier today: Blood cultures have been ordered. He has been started on neutropenic dose of Zosyn for broad-spectrum coverage. I would not hesitate to consult Infectious Disease should his fevers persist or worsen. 5. SVC syndrome: I have resumed peripheral prophylactic dose of Lovenox at 40 mg subcu once daily. 6. Pain control: I will resume his outpatient long-acting morphine sulfate at 30 mg q.8h. He will also be able to request morphine sulfate 4 mg IV every 4 hours as needed for breakthrough pain. The oncology service will follow along with you. MD WAN Madrigal /8:00 AM /8:34 AM
--- NOTE | 2017-01-05 09:03 | HHI.HP ---
HPI Service [facility] Hospitalists Primary Care Physician Cam Palacios MD Admission Diagnosis Neutropenia Chief Complaint: Naueas/vomiting Travel History International Travel<30 Days: No Contact w/Intl Traveler <30 Da: No Traveled to Known Affected Are: No History of Present Illness Mr. 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 He had initial pericardiocentesis and pericarditis and was found to have bone mets. Pt had initiation of chemoradiation and follows with Dr Hood. He was admitted 11/2016 with a right pneumothorax which was treated with just oxygen and no chest tube was necessary at that time. Pt was admitted last week with SOB and was found to have a right pleural effusion. He had a right thoracentesis with removal of 650cc of fluid. Pt presented back to the ED at [facility] on 01/04/17 with complaints of persistent nausea and vomiting which has been going on since his most recent cycle of chemotherapy on 12/28/2016 . Pt also reports that he went on a cruise the day after his chemo. He denies any abd pain, hematemesis, coffee-ground emesis. Pt was noted to be neutropenic at admission and mildly febrile this morning. Pt was given Zosyn, Neupogen and Decadron last night. Review of Systems Constitutional: COMPLAINS OF: Fever, DENIES: Chills Respiratory: COMPLAINS OF: Cough (chronic), DENIES: Shortness of breath Cardiovascular: DENIES: Chest pain Gastrointestinal: COMPLAINS OF: Nausea, Vomiting, DENIES: Abdominal pain Integumentary: DENIES: Rash Neurologic: DENIES: Headache Psychiatric: DENIES: Confusion Past Family Social History Past Medical History Adenocarcinoma right lung, dx May 2016 with mediastinal mass causing SVC syndrome, near occlusion right pulmonary artery, malignant right pleural effusion and pericardial effusion and rib metastases s/ p radiation and now on chemotherapy with Dr. Hood Right pneumothorax Congenital hydrocephalus Asthma Anxiety/Depression Chronic pain Past Surgical History Pilonidal cyst surgery HYDROGEOLOG[employer] shunt placement and revision Radial shortening surgery Percutaneous pericardiocentesis Percutaneous CT-guided biopsy of mediastinal mass [id number] placement Reported Medications Dronabinol 5 Mg Cap 5 Mg PO BID Gabapentin 300 Mg Cap 300 Mg PO HS Ambien (Zolpidem Tartrate) 5 Mg Tab 5 Mg PO HS PRN Folic Acid 400 Mcg Tab 400 Mcg PO DAILY Miralax Powder (Polyethylene Glycol 3350 Powder) 17 Gm Powd 17 Gm PO BID Mix and dissolve one measuring cap-ful (17 grams) in water or juice. Oxycodone (Oxycodone HCl) 5 Mg Cap 15 Mg PO Q4H PRN Ms Contin (Morphine Sulfate) 30 Mg Tab 45 Mg PO BID Sertraline (Sertraline HCl) 100 Mg Tab 100 Mg PO DAILY Phenergan (Promethazine HCl) 25 Mg Tab 25 Mg INJ Q6H PRN Protonix (Pantoprazole Sodium) 40 Mg Tab 40 Mg PO DAILY Zofran (Ondansetron HCl) 4 Mg Tab 4 Mg PO Q6HR PRN Eliquis (Apixaban) 2.5 Mg Tab 2.5 Mg PO BID Ventolin Hfa 18 GM Inh (Albuterol Sulfate) 90 Mcg/Act Aer 2 Puff INH Q4-6H PRN Allergies: Coded Allergies: No Known Allergies (Verified , 01/04/17) Family History Paternal grandmother had pancreas cancer Paternal grandfather had lung cancer. Social History (+)Hx of tobacco use, smoked 1ppd x 10 year, quit 2016 Denies any alcohol or illicit drug use Pt is single, he has no children. 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 Physical Exam Vital Signs Vital Signs Date Time Temp Pulse Resp B/P Pulse Ox O2 Delivery O2 Flow Rate FiO2 01/05/17 04:00 100.0 112 18 119/68 94 01/05/17 03:06 108 01/05/17 02:11 112 18 112/69 95 Nasal Cannula 1 01/04/17 23:29 19 01/04/17 23:21 101 20 122/77 95 Nasal Cannula 1 01/04/17 21:20 99.1 119 18 119/71 95 Room Air Physical Exam GENERAL: This is a well-nourished, well-developed patient, in no apparent distress. HEENT: Atraumatic. Normocephalic. No temporal or scalp tenderness. No scleral icterus. Airway patent. NECK: Trachea midline, supple, nontender. CARDIO: Regular RESP: CTA bilaterally. No wheezes, rales, or rhonchi. ABD: +BS, soft, non-tender, nondistended. EXT: Extremities without clubbing, cyanosis, or edema. NEURO: Awake and alert. Motor and sensory grossly within normal limits. Normal speech. Laboratory Laboratory Tests Test 01/04/17 01/05/17 22:00 01:10 Prothrombin Time 12.0 Prothromb Time International 1.1 Ratio Activated Partial 32.0 Thromboplast Time Sodium Level 136 Potassium Level 4.1 Chloride Level 99 Carbon Dioxide Level 24.3 Anion Gap 13 Blood Urea Nitrogen 13 Creatinine 0.49 Estimat Glomerular Filtration 196 Rate Random Glucose 112 Calcium Level 8.6 Total Creatine Kinase 33 Troponin I LESS THAN 0.02 White Blood Count 0.7 Red Blood Count 3.67 Hemoglobin 10.7 Hematocrit 31.1 Mean Corpuscular Volume 84.6 Mean Corpuscular Hemoglobin 29.2 Mean Corpuscular Hemoglobin 34.5 Concent Red Cell Distribution Width 18.0 Platelet Count 206 Mean Platelet Volume 9.4 Neutrophils (%) (Auto) Lymphocytes (%) (Auto) Monocytes (%) (Auto) Eosinophils (%) (Auto) Basophils (%) (Auto) Neutrophils # (Auto) Lymphocytes # (Auto) Monocytes # (Auto) Eosinophils # (Auto) Basophils # (Auto) CBC Comment AUTO DIFF Differential Total Cells 100 Counted Neutrophils % (Manual) 23 Band Neutrophils % 12 Lymphocytes % 16 Monocytes % 32 Neutrophils # (Manual) 0.3 Metamyelocytes 3 Nucleated Red Blood Cells 1 Differential Comment FINAL DIFF MANUAL Blastocytes 14 Platelet Estimate NORMAL Platelet Morphology Comment NORMAL Lactic Acid Level 1.5 Date/Time Procedure Status Source Growth 01/05/17 01:15 Aerobic Blood Culture Received Blood Peripheral Pending 01/05/17 01:15 Anaerobic Blood Culture Received Blood Peripheral Pending Result Diagram: 01/04/17 2200 01/04/17 2200 Imaging Last Impressions Chest X-Ray 01/04/17 0000 Signed Impressions: Service Date/Time: December 22:32 - CONCLUSION: Cavitation developing of the right upper lobe consolidation. Persistent volume loss and pleural thickening. Jimenez Osman MD Septic Shock Reassessment Heart: Regular rate and rhythm Skin: Warm Assessment and Plan Problem List: (1) Nausea & vomiting Status: Acute Plan: - Pt is a 31 y/o with metastatic right lung adenocarcinoma with mediastinal adenopathy resulting in SVC syndrome, and near complete compression of right pulmonary artery in 05/2016. - Pt has been having issues with persistent nausea and vomiting which has been going on since his most recent cycle of chemotherapy on 12/28/2016. No reported abd pain, hematemesis, coffee-ground emesis. - Oral antiemetics have not been helping. - Pt was noted to be neutropenic at admission and mildly febrile this morning. - Pt was given Zosyn, Neupogen and Decadron last night. - Dr. Hood is consulted. - Pt will continue on broad spectrum antibiotics at this time with Zosyn - Zofran PRN - Blood cultures were drawn in the ED and are pending. - CXR (01/04) --> Cavitation developing of the right upper lobe consolidation. Persistent volume loss and pleural thickening. - Decadron 2mg Q12H has been ordered - Neupogen has been ordered - IVF - Monitor labs and clinical status closely - Supportive care - DVT prophylaxis with Lovenox (2) Neutropenia Status: Acute Plan: - See above. (3) Metastatic lung cancer (metastasis from lung to other site) Status: Chronic Plan: - Pt with metastatic adenocarcinoma right lung, dx May 2016 with mediastinal mass causing SVC syndrome, near occlusion right pulmonary artery, malignant right pleural effusion and pericardial effusion and rib metastases s/p radiation and now on chemotherapy with Dr. Hood (4) Pain due to malignant neoplasm metastatic to bone Status: Chronic Plan: - Morphine Sulfate 30mg Q8H - Morphine IV for breakthrough pain Assessment and Plan Patient examined. Assessment and plan formulated with Mien Pendleton PA-C. I agree with the above. Problem Qualifiers (1) Metastatic lung cancer (metastasis from lung to other site): Qualified Code: C34.91 - Metastatic lung cancer (metastasis from lung to other site), right Mine Pendleton January 05, 2017 09:03 Dago Regalado DO January 05, 2017 16:36
[2017-01-05] MEDS: MORPHINE SULFATE 30 MG CONTROLLED RELEASE TAB PO SCH ×2 (09:08→16:55)
[2017-01-05] MEDS: ENOXAPARIN SODIUM 40 MG/0.4 ML SYRINGE SQ SCH (09:08)
[2017-01-05] MEDS: D5-1/2 NS + KCL 20 MEQ INJ 1,000 ML IV SCH ×2 (09:55→21:18)
[2017-01-05] MEDS: PIPERACIL-TAZO 4.5 GM PREMIX 100 ML IV SCH ×2 (09:55→16:55)
[2017-01-05] MEDS: MORPHINE SULFATE 4 MG/ML INJ IV PRN ×4 (10:04→23:44)
[2017-01-05] MEDS: DEXAMETHASONE 0.5 MG TAB PO SCH ×2 (12:28→21:10)
[2017-01-05] MEDS: NYSTAT/DIPHENHY/LIDO MOUTHWASH (Adult) 120ML SWISH-SWAL SCH ×3 (15:06→21:10)
[2017-01-05] MEDS: FILGRASTIM 300 MCG/ML VIAL SQ SCH (15:11)
[2017-01-06] VITALS (8 sets, daily range): BP systolic 99–109; BP diastolic 56–70; PULSE 76–87; RESP 15–20; TEMP 96.4–97.8; O2SAT 95–97
[2017-01-06] MEDS: MORPHINE SULFATE 30 MG CONTROLLED RELEASE TAB PO SCH (00:57)
[2017-01-06] MEDS: PIPERACIL-TAZO 4.5 GM PREMIX 100 ML IV SCH ×4 (00:57→23:58)
[2017-01-06] MEDS: MORPHINE SULFATE 4 MG/ML INJ IV PRN (06:16)
--- NOTE | 2017-01-06 08:02 | PD.ONC.PN ---
Subjective Subjective Remarks Afebrile overnight. Patient resting comfortably in bed. He still has some nausea, but states he feels it has improved. He had some jello last night and did not vomit. He states he continues to have right sided chest pain in his ribs and reports the morphine works for about two hours before the pain returns. Objective Data Date Time Temp Pulse Resp B/P Pulse Ox O2 Delivery O2 Flow Rate FiO2 01/06/17 06:00 97.3 77 15 109/56 96 01/06/17 00:00 96.7 86 18 104/60 96 01/05/17 20:14 91 01/05/17 20:00 98.3 92 16 109/63 95 01/05/17 18:46 16 01/05/17 18:41 16 01/05/17 16:00 100.2 97 18 114/71 97 01/05/17 12:00 99.8 94 18 114/65 96 01/05/17 08:25 90 01/05/17 08:00 98.8 106 18 108/67 96 01/06/17 01/06/17 01/06/17 07:00 15:00 23:00 Intake Total 792 ml Output Total 900 ml Balance -108 ml Result Diagram: 01/04/17219901/04/172199 Culture Results Microbiology Date/Time Procedure Status Source Growth 01/05/17 01:10 Aerobic Blood Culture Received Blood Peripheral Pending 01/05/17 01:10 Anaerobic Blood Culture Received Blood Peripheral Pending 01/05/17 01:15 Aerobic Blood Culture Received Blood Peripheral Pending 01/05/17 01:15 Anaerobic Blood Culture Received Blood Peripheral Pending Administered Medications Medications (Trade) Dose Ordered Sig/Ruma Route PRN Reason Start Time Stop Time Status Last Admin Dose Admin Morphine Sulfate (Morphine Inj) 4 mg Q4HR PRN IV BREAKTHROUGH PAIN 01/05/17 08:00 01/06/17 06:16 Morphine Sulfate 30 mg 30 mg Q8H PO 01/05/17 09:00 01/06/17 00:57 Potassium Chloride/Dextrose/ Sod Cl (D5-1/2 NS + KCl 20 Meq Inj) 1,000 ml @ 84 mls/hr [id number] IV 01/05/17 08:00 01/05/17 21:18 Filgrastim (Neupogen Inj) 300 mcg DAILY@14 SQ 5/26/17 14:00 01/05/17 15:11 Dexamethasone (Decadron) 2 mg Q12HR PO 01/05/17 09:00 01/05/17 21:10 Ondansetron HCl (Zofran Inj) 4 mg Q6HR PRN IV PUSH NAUSEA 01/05/17 08:15 01/05/17 10:04 Enoxaparin Sodium 40 mg 40 mg Q24H SQ 01/05/17 09:00 01/05/17 09:08 Piperacillin Sod/ Tazobactam Sod (Zosyn 4.5 Gm Premix) 100 ml @ 200 mls/hr Q8H IV 01/05/17 09:00 01/06/17 00:57 Multi-Ingredient Mouthwash/Gargle (Magic Mouthwash Adult Liq) 5 ml QID SWISH-SWAL 01/05/17 13:00 01/05/17 21:10 Objective Remarks GENERAL: Young man, sitting up in bed on 1L O2 via NC SKIN: Warm and dry. HEAD: Normocephalic. EYES: No injection or drainage. NECK: Supple, trachea midline. CARDIOVASCULAR: Regular rate and rhythm RESPIRATORY:diminished at bases, occasional rhonchi. GASTROINTESTINAL: Abdomen soft, non-tender, nondistended. EXTREMITIES: No cyanosis NEUROLOGICAL: awake and alert, normal speech. Assessment/Plan Problem List: (1) Metastatic lung cancer (metastasis from lung to other site) Status: Chronic Plan: --on palliative chemotherapy. considering hospice History (from initial consult) -- diagnosed in May 2016 with a locally advanced adenocarcinoma of the lung. --initially presented as a large mass infiltrating the mediastinum with resultant SVC syndrome and near complete extrinsic compression of the right main pulmonary artery. --primary tumor appeared to involve the right upper lobe of the lung. --was treated with initiation of concurrent chemoradiotherapy and upon conclusion of chemoradiotherapy he rapidly progressed within a few weeks and declared multiple bony metastases some of which involved the ribs and were quite symptomatic. --has since then been on various lines of systemic therapy, he received carboplatin/pemetrexed/Avastin. Within 2 cycles of this treatment he developed a carboplatin-associated anaphylactic reaction. --switched over to docetaxel and ramucirumab- which he is presently on --Over the past few months we have been attempting to treat his symptomatic bony metastases involving the ribs as well as the lesion involving the frontal bone of the cranium on the left side. --has had some improvement in the pain to the rib metastases since he received palliative radiation. --His disease has no identifiable personal driver mutations. His disease weakly expresses PDL-1 (1%). --presently on palliative systemic therapy with docetaxel/ramucirumab, and is status post 3 cycles of this. --Over the past month and a half his ECOG performance status has been declining and he has had repeated hospitalizations for management of various issues ranging from nausea and vomiting to dehydration to difficulty breathing. --Fred had been considering transitioning to Hospice and in fact met with the Hospice representatives earlier this week. He has yet not decided regarding his final decision as to transition his care to Hospice versus to continue aggressive disease directed therapy. (2) Nausea & vomiting Status: Acute Plan: --on Zofran 4 mg IV q.6h. + dexamethasone 2 mg p.o. q.12h. --If his nausea does not respond may need to rule out MEDICATION AIDE metastasis which may be causing central nausea due to increased ICP. (3) Neutropenic fever Status: Acute Plan: --Secondary to myelosuppression from chemotherapy. --Neupogen 300 mcg subcu daily. --on antibiotic (Zosyn) --BC pending (4) SVC syndrome Status: Chronic Plan: --Lovenox 40 mg sq daily (5) Pain due to malignant neoplasm metastatic to bone Status: Chronic Plan: --on oramorph 30 mg q.8h.+ morphine sulfate 4 mg IV q 4 PRN Assessment 31y/o male with metastatic adenocarcinoma of the lung admitted with intractable vomiting + severe right sided chest pain. --on palliative systemic therapy with docetaxel/ramucirumab--most recent cycle of chemotherapy was on 12/28/2016 and since then he has had persistent nausea and vomiting. h/o Malignant pleural effusion. SVC syndrome; on chronic anticoagulation due to the SVC syndrome. Pericardial effusion. Congenital hydrocephalus. Asthma. YARD JOCKEY shunt placement and revision. Percutaneous pericardiocentesis. Percutaneous CT-guided biopsy of mediastinal mass. Infusion port placement. Plan 1. increase oramorph to 45mg PO q8. increase IV morphine to 6mg PRN 2. continue zofran and decadron 3. continue clear liquid diet 4. monitor blood cultures Attending Statement The exam, history, and the medical decision-making described in the above note were completed with the assistance of the mid-level provider. I reviewed and agree with the findings presented. I attest that I had a [id number] encounter with the patient on the same day, and personally performed and documented my assessment and findings in the medical record. we will continue supportive care pain meds adjusted continue antibiotics blood cultures--no growth day after 24 hours counts coming up will stop Neupogen tomorrow Problem Qualifiers (1) Metastatic lung cancer (metastasis from lung to other site): Qualified Code: C34.91 - Metastatic lung cancer (metastasis from lung to other site), right Dahlia Arredondo January 06, 2017 08:02 Tai Garcia MD January 06, 2017 23:33
[2017-01-06] MEDS: NYSTAT/DIPHENHY/LIDO MOUTHWASH (Adult) 120ML SWISH-SWAL SCH ×4 (08:16→22:13)
[2017-01-06] MEDS: DEXAMETHASONE 0.5 MG TAB PO SCH ×2 (08:16→22:13)
[2017-01-06] MEDS: ENOXAPARIN SODIUM 40 MG/0.4 ML SYRINGE SQ SCH (08:16)
[2017-01-06] MEDS: POLYETHYLENE GLYCOL 17 GM PKG PO SCH (08:32)
[2017-01-06] MEDS: MORPHINE SULFATE 15 MG CONTROLLED RELEASE TAB PO SCH ×3 (08:32→23:58)
[2017-01-06] MEDS ORDERED: PNEUMOCOCCAL POLYVALENT INJ 25 MCG/0.5 ML SYR IM ONE (09:00)
[2017-01-06 10:57] LABS: ALKALINE PHOSPHATASE 82 U/L (45-117); ALT (GPT) 26 U/L (12-78); ANION GAP 9 MEQ/L (5-15); AST (GOT) 25 U/L (15-37); BICARBONATE 25.6 MEQ/L (21.0-32.0); BLOOD UREA NITROGEN 8 MG/DL (7-18); CHLORIDE 96 MEQ/L (98-107); GLOMERULAR FILTRATION RATE 206 ML/MIN (>89); POTASSIUM 4.1 MEQ/L (3.5-5.1); SODIUM (NA) 131 MEQ/L (136-145); TOTAL BILIRUBIN ADULT 0.6 MG/DL (0.2-1.0)
--- NOTE | 2017-01-06 11:56 | HHI.PR ---
Subjective Remarks Pt c/o right sided chest pain, but appeared comfortable at my visit. Narcotics increased by Oncology. Pt denies nausea currently and is going to try some liquid intake at lunch. Objective Vitals Vital Signs Date Time Temp Pulse Resp B/P Pulse Ox O2 Delivery O2 Flow Rate FiO2 01/06/17 07:00 96.4 76 20 100/66 96 01/06/17 06:00 97.3 77 15 109/56 96 01/06/17 00:00 96.7 86 18 104/60 96 01/05/17 20:14 91 01/05/17 20:00 98.3 92 16 109/63 95 01/05/17 18:46 16 01/05/17 18:41 16 01/05/17 16:00 100.2 97 18 114/71 97 01/05/17 12:00 99.8 94 18 114/65 96 01/05/17 01/05/17 01/06/17 15:00 23:00 07:00 Intake Total 600 ml 1602 ml 792 ml Output Total 900 ml Balance 600 ml 1602 ml -108 ml Intake Oral 600 ml 480 ml 120 ml IV Total 1122 ml 672 ml Output Urine Total 900 ml # Voids 3 1 # Bowel Movements 0 Result Diagram: 01/04/17 2200 01/06/17 0921 Imaging Last Impressions Chest X-Ray 01/04/17 0000 Signed Impressions: Service Date/Time: December 22:32 - CONCLUSION: Cavitation developing of the right upper lobe consolidation. Persistent volume loss and pleural thickening. Jimenez Osman MD Objective Remarks GENERAL: This is a well-nourished, well-developed patient, in no apparent distress. CARDIOVASCULAR: Regular rate and rhythm without murmurs, gallops, or rubs. RESPIRATORY: Clear to auscultation. Breath sounds equal bilaterally. No wheezes , rales, or rhonchi. GASTROINTESTINAL: Abdomen soft, non-tender, nondistended. Normal active bowel sounds MUSCULOSKELETAL: Extremities without clubbing, cyanosis, or edema. NEURO: Alert & Oriented x4 to person, place, time, situation. Moves all ext x4 A/P Problem List: (1) Nausea & vomiting Status: Acute Plan: - Pt is a 31 y/o with metastatic right lung adenocarcinoma with mediastinal adenopathy resulting in SVC syndrome, and near complete compression of right pulmonary artery in 05/2016. - Pt has been having issues with persistent nausea and vomiting which has been going on since his most recent cycle of chemotherapy on 12/28/2016. No reported abd pain, hematemesis, coffee-ground emesis. - Oral antiemetics have not been helping. - Pt was noted to be neutropenic, afebrile since 4PM (01/05/17) - Pt received 2 dose of neupogen 01/05/17 - IV decadron q12h - IV zosyn - IVFs - Zofran PRN - Blood cultures (01/05/17) --> NGTD - consider MRI brain, r/o LICENSED APPRAISER metastasis as cause of pt's n/v - Supportive care - DVT prophylaxis with Lovenox (2) Neutropenia Status: Acute Plan: - See above. (3) Metastatic lung cancer (metastasis from lung to other site) Status: Chronic Plan: - Pt with metastatic adenocarcinoma right lung, dx May 2016 with mediastinal mass causing SVC syndrome, near occlusion right pulmonary artery, malignant right pleural effusion and pericardial effusion and rib metastases s/p radiation and now on chemotherapy with Dr. Hodo (4) Pain due to malignant neoplasm metastatic to bone Status: Chronic Plan: - Morphine Sulfate 45mg Q8H - Morphine 6mg q4HR IV for breakthrough pain Problem Qualifiers (1) Metastatic lung cancer (metastasis from lung to other site): Qualified Code: C34.91 - Metastatic lung cancer (metastasis from lung to other site), right Dago Regalado DO January 06, 2017 11:56
[2017-01-06] MEDS: D5-1/2 NS + KCL 20 MEQ INJ 1,000 ML IV SCH ×2 (12:51→22:14)
[2017-01-06 14:06] LABS: AUTOMATED NEUTROPHIL # 3.1 TH/MM3 (1.8-7.7); LYMPH % 4.1 % (9.0-44.0); LYMPHOCYTE # 0.2 TH/MM3 (1.0-4.8); MEAN CELL VOLUME 85.4 FL (80.0-100.0); MEAN CORPUSCULAR HEMOGLOBIN 28.4 PG (27.0-34.0); MEAN CORPUSCULAR HGB CONC 33.3 % (32.0-36.0); MONO % 29.3 % (0.0-8.0); NEUT % 66.6 % (16.0-70.0); PLATELET COUNT 190 TH/MM3 (150-450); RED BLOOD COUNT 3.74 MIL/MM3 (4.50-5.90); RED CELL DISTRIBUTION WIDTH 18.2 % (11.6-17.2); WHITE BLOOD COUNT 4.7 TH/MM3 (4.0-11.0)
[2017-01-06 14:07] LABS: HEMO FLAGS AUTO DIFF
[2017-01-06] MEDS: FILGRASTIM 300 MCG/ML VIAL SQ SCH (14:10)
[2017-01-06 14:48] LABS: BANDS 45 % (0-6); METAMYELOCYTES 2 % (0-1); MYELOCYTES 1 % (0-0); NEUTROPHIL # MANUAL DIFF 3.2 TH/MM3 (1.8-7.7); POLYS (SEG NEUTROPHILS) 21 % (16-70); WBC DIFF SAMPLE 100
[2017-01-06 14:50] LABS: DOHLE BODIES PRESENT (NONE SEEN); OVALOCYTES 1+ (NORMAL); PLATELET ESTIMATE SMEAR NORMAL (NORMAL); PLATELET MORPHOLOGY NORMAL (NORMAL); SCAN/DIFF FINAL DIFF MANUAL; TOXIC GRANULATION 1+ (NORMAL)
[2017-01-06] MEDS: MORPHINE SULFATE 8 MG/ML INJ IV PUSH PRN ×2 (16:38→22:12)
[2017-01-06] MEDS ORDERED: ZOLPIDEM TARTRATE 5 MG TAB PO PRN (23:45)
[2017-01-06] MEDS: ZOLPIDEM TARTRATE 5 MG TAB PO PRN (23:58)
[2017-01-07] VITALS (7 sets, daily range): BP systolic 92–110; BP diastolic 64–73; PULSE 71–91; RESP 16–18; TEMP 95.6–98.3; O2SAT 95–97
[2017-01-07 06:04] LABS: AUTOMATED NEUTROPHIL # 10.9 TH/MM3 (1.8-7.7); BASOPHIL % 0.1 % (0.0-2.0); HEMATOCRIT 30.9 % (39.0-51.0); LYMPH % 2.5 % (9.0-44.0); LYMPHOCYTE # 0.3 TH/MM3 (1.0-4.8); MEAN CELL VOLUME 85.6 FL (80.0-100.0); MEAN CORPUSCULAR HEMOGLOBIN 28.6 PG (27.0-34.0); MEAN CORPUSCULAR HGB CONC 33.4 % (32.0-36.0); MONO % 16.4 % (0.0-8.0); PLATELET COUNT 208 TH/MM3 (150-450); RED BLOOD COUNT 3.61 MIL/MM3 (4.50-5.90); RED CELL DISTRIBUTION WIDTH 18.9 % (11.6-17.2); WHITE BLOOD COUNT 13.5 TH/MM3 (4.0-11.0)
[2017-01-07 06:11] LABS: HEMO FLAGS AUTO DIFF
[2017-01-07 08:54] LABS: BANDS 39 % (0-6); MYELOCYTES 1 % (0-0); NEUTROPHIL # MANUAL DIFF 11.6 TH/MM3 (1.8-7.7); PLATELET ESTIMATE SMEAR NORMAL (NORMAL); PLATELET MORPHOLOGY NORMAL (NORMAL); POLYS (SEG NEUTROPHILS) 46 % (16-70); SCAN/DIFF FINAL DIFF MANUAL; WBC DIFF SAMPLE 100
--- NOTE | 2017-01-07 08:54 | PD.ONC.PN ---
Subjective Subjective Remarks Afebrile overnight. Patient feeling much better today. He tolerated clear liquids yesterday and would like to try full liquids today. No vomiting. His pain is much improved with the increase in long-acting narcotics. he only required three doses of breakthrough pain medication yesterday. No swelling in face or upper extremities. No BM since Sunday. Objective Data Date Time Temp Pulse Resp B/P Pulse Ox O2 Delivery O2 Flow Rate FiO2 01/07/17 04:00 96.0 71 17 101/64 96 01/07/17 00:00 97.5 81 18 110/68 95 01/06/17 20:06 86 01/06/17 20:00 96.6 87 17 108/70 97 01/06/17 16:00 97.8 76 18 99/65 97 01/06/17 12:00 97.6 77 20 104/67 95 Result Diagram: 01/07/17 0511 01/06/17 0921 Laboratory Results Laboratory Tests Test 01/06/17 01/06/17 01/07/17 09:21 13:28 05:11 Sodium Level 131 MEQ/L Potassium Level 4.1 MEQ/L Chloride Level 96 MEQ/L Carbon Dioxide Level 25.6 MEQ/L Anion Gap 9 MEQ/L Blood Urea Nitrogen 8 MG/DL Creatinine 0.47 MG/DL Estimat Glomerular Filtration 206 ML/MIN Rate Random Glucose 129 MG/DL Calcium Level 8.1 MG/DL Total Bilirubin 0.6 MG/DL Aspartate Amino Transf 25 U/L (AST/SGOT) Alanine Aminotransferase 26 U/L (ALT/SGPT) Alkaline Phosphatase 82 U/L Total Protein 6.2 GM/DL Albumin 1.7 GM/DL White Blood Count 4.7 TH/MM3 13.5 TH/MM3 Red Blood Count 3.74 MIL/MM3 3.61 MIL/MM3 Hemoglobin 10.6 GM/DL 10.3 GM/DL Hematocrit 32.0 % 30.9 % Mean Corpuscular Volume 85.4 FL 85.6 FL Mean Corpuscular Hemoglobin 28.4 PG 28.6 PG Mean Corpuscular Hemoglobin 33.3 % 33.4 % Concent Red Cell Distribution Width 18.2 % 18.9 % Platelet Count 190 TH/MM3 208 TH/MM3 Mean Platelet Volume 9.8 FL 10.0 FL Neutrophils (%) (Auto) 66.6 % 81.0 % Lymphocytes (%) (Auto) 4.1 % 2.5 % Monocytes (%) (Auto) 29.3 % 16.4 % Eosinophils (%) (Auto) 0.0 % 0.0 % Basophils (%) (Auto) 0.0 % 0.1 % Neutrophils # (Auto) 3.1 TH/MM3 10.9 TH/MM3 Lymphocytes # (Auto) 0.2 TH/MM3 0.3 TH/MM3 Monocytes # (Auto) 1.4 TH/MM3 2.2 TH/MM3 Eosinophils # (Auto) 0.0 TH/MM3 0.0 TH/MM3 Basophils # (Auto) 0.0 TH/MM3 0.0 TH/MM3 CBC Comment AUTO DIFF AUTO DIFF Differential Total Cells 100 Counted Neutrophils % (Manual) 21 % Band Neutrophils % 45 % Lymphocytes % 3 % Monocytes % 28 % Neutrophils # (Manual) 3.2 TH/MM3 Metamyelocytes 2 % Myelocytes 1 % Differential Comment FINAL DIFF MANUAL Toxic Granulation 1+ Dohle Bodies PRESENT Platelet Estimate NORMAL Platelet Morphology Comment NORMAL Ovalocytes 1+ Culture Results Microbiology Date/Time Procedure Status Source Growth 01/05/17 01:10 Aerobic Blood Culture - Preliminary Resulted Blood Peripheral NO GROWTH IN 1 DAY 01/05/17 01:10 Anaerobic Blood Culture - Preliminary Resulted Blood Peripheral NO GROWTH IN 1 DAY 01/05/17 01:15 Aerobic Blood Culture - Preliminary Resulted Blood Peripheral NO GROWTH IN 1 DAY 01/05/17 01:15 Anaerobic Blood Culture - Preliminary Resulted Blood Peripheral NO GROWTH IN 1 DAY Administered Medications Medications (Trade) Dose Ordered Sig/Ruma Route PRN Reason Start Time Stop Time Status Last Admin Dose Admin Potassium Chloride/Dextrose/ Sod Cl (D5-1/2 NS + KCl 20 Meq Inj) 1,000 ml @ 84 mls/hr [id number] IV 01/05/17 08:00 01/06/17 22:14 Dexamethasone (Decadron) 2 mg Q12HR PO 01/05/17 09:00 01/06/17 22:13 Ondansetron HCl (Zofran Inj) 4 mg Q6HR PRN IV PUSH NAUSEA 01/05/17 08:15 01/05/17 10:04 Enoxaparin Sodium 40 mg 40 mg Q24H SQ 01/05/17 09:00 01/06/17 08:16 Piperacillin Sod/ Tazobactam Sod (Zosyn 4.5 Gm Premix) 100 ml @ 200 mls/hr Q8H IV 01/05/17 09:00 01/06/17 23:58 Multi-Ingredient Mouthwash/Gargle (Magic Mouthwash Adult Liq) 5 ml QID SWISH-SWAL 01/05/17 13:00 01/06/17 22:13 Morphine Sulfate (Morphine Inj) 6 mg Q4HR PRN IV PUSH BREAKTHROUGH PAIN 01/06/17 08:00 01/06/17 22:12 Morphine Sulfate (Oramorph Sr) 45 mg Q8H PO 01/06/17 09:00 01/06/17 23:58 Polyethylene Glycol (Miralax) 17 gm DAILY PO 01/06/17 09:00 01/06/17 08:32 Zolpidem Tartrate (Ambien) 5 mg HS PRN PO INSOMNIA 01/06/17 23:45 01/06/17 23:58 Objective Remarks GENERAL: Young man, lying in bed in nad. He appears much more comfortable today. SKIN: Warm and dry. HEAD: Normocephalic. EYES: No injection or drainage. NECK: Supple, trachea midline. CARDIOVASCULAR: Regular rate and rhythm RESPIRATORY: diminished at bases, scattered rhonchi. GASTROINTESTINAL: Abdomen soft, non-tender, nondistended. EXTREMITIES: No cyanosis NEUROLOGICAL: aox3 normal speech. moving all extremities. Assessment/Plan Problem List: (1) Metastatic lung cancer (metastasis from lung to other site) Status: Chronic Plan: --on palliative chemotherapy. considering hospice History (from initial consult) -- diagnosed in May 2016 with a locally advanced adenocarcinoma of the lung. --initially presented as a large mass infiltrating the mediastinum with resultant SVC syndrome and near complete extrinsic compression of the right main pulmonary artery. --primary tumor appeared to involve the right upper lobe of the lung. --was treated with initiation of concurrent chemoradiotherapy and upon conclusion of chemoradiotherapy he rapidly progressed within a few weeks and declared multiple bony metastases some of which involved the ribs and were quite symptomatic. --has since then been on various lines of systemic therapy, he received carboplatin/pemetrexed/Avastin. Within 2 cycles of this treatment he developed a carboplatin-associated anaphylactic reaction. --switched over to docetaxel and ramucirumab- which he is presently on --Over the past few months we have been attempting to treat his symptomatic bony metastases involving the ribs as well as the lesion involving the frontal bone of the cranium on the left side. --has had some improvement in the pain to the rib metastases since he received palliative radiation. --His disease has no identifiable high lift driver mutations. His disease weakly expresses PDL-1 (1%). --presently on palliative systemic therapy with docetaxel/ramucirumab, and is status post 3 cycles of this. --Over the past month and a half his ECOG performance status has been declining and he has had repeated hospitalizations for management of various issues ranging from nausea and vomiting to dehydration to difficulty breathing. --Fred had been considering transitioning to Hospice and in fact met with the Hospice representatives earlier this week. He has yet not decided regarding his final decision as to transition his care to Hospice versus to continue aggressive disease directed therapy. (2) Nausea & vomiting Status: Acute Plan: --on Zofran 4 mg IV q.6h. + dexamethasone 2 mg p.o. q.12h. --If his nausea does not respond may need to rule out TECHNICAL SERVICES CONSULTANT metastasis which may be causing central nausea due to increased ICP. (3) Neutropenic fever Status: Acute Plan: --Secondary to myelosuppression from chemotherapy. --Neutropenic resolved --on antibiotic (Zosyn) --BC no growth (4) SVC syndrome Status: Chronic Plan: --Lovenox 40 mg sq daily (5) Pain due to malignant neoplasm metastatic to bone Status: Chronic Plan: --on oramorph 45 mg q.8h.+ morphine sulfate 6 mg IV q 4 PRN Assessment 31y/o male with metastatic adenocarcinoma of the lung admitted with intractable vomiting + severe right sided chest pain. --on palliative systemic therapy with docetaxel/ramucirumab--most recent cycle of chemotherapy was on 12/28/2016 and since then he has had persistent nausea and vomiting. h/o Malignant pleural effusion. SVC syndrome; on chronic anticoagulation due to the SVC syndrome. Pericardial effusion. Congenital hydrocephalus. Asthma. 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 Percutaneous pericardiocentesis. Percutaneous CT-guided biopsy of mediastinal mass. Infusion port placement. Plan 1. continue oramorph to 45mg PO q8. with IV morphine 6mg PRN 2. continue zofran and decadron 3. Advance to full liquid diet 4. monitor blood cultures Attending Statement The exam, history, and the medical decision-making described in the above note were completed with the assistance of the mid-level provider. I reviewed and agree with the findings presented. I attest that I had a [id number] encounter with the patient on the same day, and personally performed and documented my assessment and findings in the medical record. Counts have recovered Stop Neupogen Blood cultures negative/afebrile Stop Zosyn continue supportive care d/w rn Problem Qualifiers (1) Metastatic lung cancer (metastasis from lung to other site): Qualified Code: C34.91 - Metastatic lung cancer (metastasis from lung to other site), right Dahlia Arredondo January 07, 2017 08:54 Tai Garcia MD January 07, 2017 23:36
[2017-01-07] MEDS: NYSTAT/DIPHENHY/LIDO MOUTHWASH (Adult) 120ML SWISH-SWAL SCH ×4 (09:11→20:40)
[2017-01-07] MEDS: DEXAMETHASONE 0.5 MG TAB PO SCH ×2 (09:11→20:40)
[2017-01-07] MEDS: MORPHINE SULFATE 15 MG CONTROLLED RELEASE TAB PO SCH ×2 (09:11→16:39)
[2017-01-07] MEDS: ENOXAPARIN SODIUM 40 MG/0.4 ML SYRINGE SQ SCH (09:11)
[2017-01-07] MEDS: POLYETHYLENE GLYCOL 17 GM PKG PO SCH (09:11)
[2017-01-07] MEDS: PIPERACIL-TAZO 4.5 GM PREMIX 100 ML IV SCH ×2 (09:11→16:39)
[2017-01-07] MEDS: MORPHINE SULFATE 8 MG/ML INJ IV PUSH PRN ×2 (14:34→20:41)
[2017-01-07] MEDS: D5-1/2 NS + KCL 20 MEQ INJ 1,000 ML IV SCH (15:03)
--- NOTE | 2017-01-07 16:10 | HHI.PR ---
Subjective Remarks Pain is better controlled today with increase of his long acting narcotics. Pt has tolerated a small amount of PO intake. Objective Vitals Vital Signs Date Time Temp Pulse Resp B/P Pulse Ox O2 Delivery O2 Flow Rate FiO2 01/07/17 12:00 96.8 79 18 104/73 97 01/07/17 08:02 77 01/07/17 08:00 95.6 74 16 92/69 95 01/07/17 04:00 96.0 71 17 101/64 96 01/07/17 00:00 97.5 81 18 110/68 95 01/06/17 20:06 86 01/06/17 20:00 96.6 87 17 108/70 97 01/06/17 01/06/17 01/07/17 15:00 23:00 07:00 Intake Total 1529 ml 240 ml 240 ml Balance 1529 ml 240 ml 240 ml Intake Oral 960 ml 240 ml 240 ml IV Total 569 ml # Voids 2 3 2 # Bowel Movements 0 0 Result Diagram: 01/07/17 0511 01/06/17 0921 Imaging Last Impressions Chest X-Ray 01/04/17 0000 Signed Impressions: Service Date/Time: December 22:32 - CONCLUSION: Cavitation developing of the right upper lobe consolidation. Persistent volume loss and pleural thickening. Jimenez Osman MD Objective Remarks GENERAL: This is a well-nourished, well-developed patient, in no apparent distress. CARDIOVASCULAR: Regular rate and rhythm without murmurs, gallops, or rubs. RESPIRATORY: Clear to auscultation. Breath sounds equal bilaterally. No wheezes , rales, or rhonchi. GASTROINTESTINAL: Abdomen soft, non-tender, nondistended. Normal active bowel sounds MUSCULOSKELETAL: Extremities without clubbing, cyanosis, or edema. NEURO: Alert & Oriented x4 to person, place, time, situation. Moves all ext x4 A/P Problem List: (1) Nausea & vomiting Status: Acute Plan: - Pt is a 31 y/o with metastatic right lung adenocarcinoma with mediastinal adenopathy resulting in SVC syndrome, and near complete compression of right pulmonary artery in 05/2016. - Pt has been having issues with persistent nausea and vomiting which has been going on since his most recent cycle of chemotherapy on 12/28/2016. No reported abd pain, hematemesis, coffee-ground emesis. - Pt was noted to be neutropenic, afebrile since 4PM (01/05/17) - Pt received 2 dose of neupogen 01/05/17 - PO decadron - IV zosyn - Zofran PRN - Blood cultures (01/05/17) --> NGTD - consider MRI brain, r/o PROCUREMENT INTERN metastasis as cause of pt's n/v - Supportive care - DVT prophylaxis with Lovenox 01/07/17 - clinically improved with increase of his MS contin - improved PO intake - hopefully home in the next few days (2) Neutropenia Status: Acute Plan: - See above. (3) Metastatic lung cancer (metastasis from lung to other site) Status: Chronic Plan: - Pt with metastatic adenocarcinoma right lung, dx May 2016 with mediastinal mass causing SVC syndrome, near occlusion right pulmonary artery, malignant right pleural effusion and pericardial effusion and rib metastases s/p radiation and now on chemotherapy with Dr. Hood (4) Pain due to malignant neoplasm metastatic to bone Status: Chronic Plan: - Morphine Sulfate 45mg Q8H - Morphine 6mg q4HR IV for breakthrough pain Problem Qualifiers (1) Metastatic lung cancer (metastasis from lung to other site): Qualified Code: C34.91 - Metastatic lung cancer (metastasis from lung to other site), right Dago Regalado DO January 07, 2017 16:09
[2017-01-07] MEDS: ZOLPIDEM TARTRATE 5 MG TAB PO PRN (20:41)
[2017-01-08] VITALS: BP 97/71; PULSE 76; RESP 18; TEMP 97.1; O2SAT 94
[2017-01-08] MEDS: MORPHINE SULFATE 15 MG CONTROLLED RELEASE TAB PO SCH ×2 (01:16→08:16)
[2017-01-08 04:00] VITALS: BP 100/73; PULSE 79; RESP 16; TEMP 97.6; O2SAT 96
[2017-01-08] MEDS: MORPHINE SULFATE 8 MG/ML INJ IV PUSH PRN ×2 (04:16→13:08)
[2017-01-08 08:10] VITALS: BP 90/65; PULSE 82; RESP 20; TEMP 96.6; O2SAT 97
[2017-01-08 08:11] LABS: AUTOMATED NEUTROPHIL # 23.6 TH/MM3 (1.8-7.7); BASOPHIL % 0.1 % (0.0-2.0); HEMATOCRIT 32.6 % (39.0-51.0); LYMPH % 2.2 % (9.0-44.0); LYMPHOCYTE # 0.6 TH/MM3 (1.0-4.8); MEAN CELL VOLUME 86.9 FL (80.0-100.0); MEAN CORPUSCULAR HEMOGLOBIN 28.2 PG (27.0-34.0); MEAN CORPUSCULAR HGB CONC 32.5 % (32.0-36.0); MONO % 8.2 % (0.0-8.0); NEUT % 89.5 % (16.0-70.0); PLATELET COUNT 245 TH/MM3 (150-450); RED BLOOD COUNT 3.75 MIL/MM3 (4.50-5.90); RED CELL DISTRIBUTION WIDTH 19.1 % (11.6-17.2); WHITE BLOOD COUNT 26.4 TH/MM3 (4.0-11.0)
[2017-01-08 08:13] LABS: HEMO FLAGS AUTO DIFF
[2017-01-08] MEDS: ENOXAPARIN SODIUM 40 MG/0.4 ML SYRINGE SQ SCH (08:16)
[2017-01-08] MEDS: DEXAMETHASONE 0.5 MG TAB PO SCH (08:16)
[2017-01-08] MEDS: NYSTAT/DIPHENHY/LIDO MOUTHWASH (Adult) 120ML SWISH-SWAL SCH ×2 (08:16→13:08)
[2017-01-08] MEDS: POLYETHYLENE GLYCOL 17 GM PKG PO SCH (08:16)
--- NOTE | 2017-01-08 08:21 | HHI.PR ---
Subjective Remarks wants to go home. tolerating liquid diet. Objective Vitals heart reg lung cta abd s/nt ext no edema Vital Signs Date Time Temp Pulse Resp B/P Pulse Ox O2 Delivery O2 Flow Rate FiO2 01/08/17 04:00 97.6 79 16 100/73 96 01/08/17 00:00 97.1 76 18 97/71 94 01/07/17 20:00 98.3 91 17 103/66 96 01/07/17 16:00 96.4 82 16 104/70 97 01/07/17 12:00 96.8 79 18 104/73 97 01/07/17 01/07/17 01/08/17 15:00 23:00 07:00 Intake Total 1869 ml 2482 ml 240 ml Balance 1869 ml 2482 ml 240 ml Intake Oral 1920 ml 240 ml IV Total 1869 ml 562 ml # Voids 6 2 # Bowel Movements 0 0 Result Diagram: 01/08/17 0651 01/06/17 0921 Imaging Last Impressions Chest X-Ray 01/04/17 0000 Signed Impressions: Service Date/Time: December 22:32 - CONCLUSION: Cavitation developing of the right upper lobe consolidation. Persistent volume loss and pleural thickening. Jimenez Osman MD A/P Problem List: (1) Nausea & vomiting Status: Acute Plan: - Pt is a 31 y/o with metastatic right lung adenocarcinoma with mediastinal adenopathy resulting in SVC syndrome, and near complete compression of right pulmonary artery in 05/2016. - Pt has been having issues with persistent nausea and vomiting which has been going on since his most recent cycle of chemotherapy on 12/28/2016. No reported abd pain, hematemesis, coffee-ground emesis. - Presented with neutropenic fever. cultures negative. neutropenia resolved with neupogen - IV zosyn emperically -advancing diet. -check with oncology today if can be converted to po abx and d/c home. (2) Neutropenia Status: Acute Plan: - See above. (3) Metastatic lung cancer (metastasis from lung to other site) Status: Chronic Plan: - Pt with metastatic adenocarcinoma right lung, dx May 2016 with mediastinal mass causing SVC syndrome, near occlusion right pulmonary artery, malignant right pleural effusion and pericardial effusion and rib metastases s/p radiation and now on chemotherapy with Dr. Hood (4) Pain due to malignant neoplasm metastatic to bone Status: Chronic Plan: - Morphine Sulfate 45mg Q8H - Morphine 6mg q4HR IV for breakthrough pain Problem Qualifiers (1) Metastatic lung cancer (metastasis from lung to other site): Qualified Code: C34.91 - Metastatic lung cancer (metastasis from lung to other site), right Rom Benjamin MD January 08, 2017 08:20
--- NOTE | 2017-01-08 10:00 | PD.ONC.PN ---
Subjective Subjective Remarks Patient reports feeling much improved, he tells me he will attempt to eat a regular lunch today. Nausea has been well controlled, he has had no additional episodes of vomiting at least for the past 24 hours. He denies fevers or chills. His pain is reasonably well-controlled. He looks for to going home if he is able to hold down his lunch. Objective Data Date Time Temp Pulse Resp B/P Pulse Ox O2 Delivery O2 Flow Rate FiO2 01/08/17 08:10 96.6 82 20 90/65 97 01/08/17 04:00 97.6 79 16 100/73 96 01/08/17 00:00 97.1 76 18 97/71 94 01/07/17 20:00 98.3 91 17 103/66 96 01/07/17 16:00 96.4 82 16 104/70 97 01/07/17 12:00 96.8 79 18 104/73 97 Result Diagram: 01/08/17 0651 01/06/17 0921 Laboratory Results Laboratory Tests Test 01/08/17 06:51 White Blood Count 26.4 TH/MM3 Red Blood Count 3.75 MIL/MM3 Hemoglobin 10.6 GM/DL Hematocrit 32.6 % Mean Corpuscular Volume 86.9 FL Mean Corpuscular Hemoglobin 28.2 PG Mean Corpuscular Hemoglobin 32.5 % Concent Red Cell Distribution Width 19.1 % Platelet Count 245 TH/MM3 Mean Platelet Volume 10.3 FL Neutrophils (%) (Auto) 89.5 % Lymphocytes (%) (Auto) 2.2 % Monocytes (%) (Auto) 8.2 % Eosinophils (%) (Auto) 0.0 % Basophils (%) (Auto) 0.1 % Neutrophils # (Auto) 23.6 TH/MM3 Lymphocytes # (Auto) 0.6 TH/MM3 Monocytes # (Auto) 2.2 TH/MM3 Eosinophils # (Auto) 0.0 TH/MM3 Basophils # (Auto) 0.0 TH/MM3 CBC Comment AUTO DIFF Administered Medications Medications (Trade) Dose Ordered Sig/Ruma Route PRN Reason Start Time Stop Time Status Last Admin Dose Admin Dexamethasone (Decadron) 2 mg Q12HR PO 01/05/17 09:00 01/08/17 08:16 Ondansetron HCl (Zofran Inj) 4 mg Q6HR PRN IV PUSH NAUSEA 01/05/17 08:15 5/26/17 10:04 Enoxaparin Sodium (Lovenox Inj) 40 mg Q24H SQ 01/05/17 09:00 01/08/17 08:16 Multi-Ingredient Mouthwash/Gargle (Magic Mouthwash Adult Liq) 5 ml QID SWISH-SWAL 01/05/17 13:00 01/08/17 08:16 Morphine Sulfate (Morphine Inj) 6 mg Q4HR PRN IV PUSH BREAKTHROUGH PAIN 01/06/17 08:00 01/08/17 04:16 Morphine Sulfate (Oramorph Sr) 45 mg Q8H PO 01/06/17 09:00 01/08/17 08:16 Polyethylene Glycol (Miralax) 17 gm DAILY PO 01/06/17 09:00 01/08/17 08:16 Zolpidem Tartrate (Ambien) 5 mg HS PRN PO INSOMNIA 01/06/17 23:45 01/07/17 20:41 Objective Remarks GENERAL: Young man, laying in bed, appears to be near cachectic, chronically ill -appearing. SKIN: Warm and dry. HEAD: Normocephalic. EYES: No scleral icterus. No injection or drainage. NECK: Supple, trachea midline. No JVD or lymphadenopathy. LYMPHATIC: No adenopathy. CARDIOVASCULAR: Regular rate and rhythm without murmurs. RESPIRATORY: Decreased bibasilar breath sounds, prolonged expiratory phase. GASTROINTESTINAL: Thin abdomen, Abdomen soft, non-tender, nondistended. EXTREMITIES: No cyanosis, or edema. MUSCULOSKELETAL: Adequate muscle tone. NEUROLOGICAL: No obvious focal deficit. Awake, alert, and oriented x3. PSYCHIATRIC: Appropriate mood and affect; insight and judgment normal. Assessment/Plan Problem List: (1) Metastatic lung cancer (metastasis from lung to other site) Status: Chronic Plan: --on palliative chemotherapy. considering hospice History (from initial consult) -- diagnosed in May 2016 with a locally advanced adenocarcinoma of the lung. --initially presented as a large mass infiltrating the mediastinum with resultant SVC syndrome and near complete extrinsic compression of the right main pulmonary artery. --primary tumor appeared to involve the right upper lobe of the lung. --was treated with initiation of concurrent chemoradiotherapy and upon conclusion of chemoradiotherapy he rapidly progressed within a few weeks and declared multiple bony metastases some of which involved the ribs and were quite symptomatic. --has since then been on various lines of systemic therapy, he received carboplatin/pemetrexed/Avastin. Within 2 cycles of this treatment he developed a carboplatin-associated anaphylactic reaction. --switched over to docetaxel and ramucirumab- which he is presently on --Over the past few months we have been attempting to treat his symptomatic bony metastases involving the ribs as well as the lesion involving the frontal bone of the cranium on the left side. --has had some improvement in the pain to the rib metastases since he received palliative radiation. --His disease has no identifiable tanker driver mutations. His disease weakly expresses PDL-1 (1%). --presently on palliative systemic therapy with docetaxel/ramucirumab, and is status post 3 cycles of this. --Over the past month and a half his ECOG performance status has been declining and he has had repeated hospitalizations for management of various issues ranging from nausea and vomiting to dehydration to difficulty breathing. --Fred had been considering transitioning to Hospice and in fact met with the Hospice representatives earlier this week. He has yet not decided regarding his final decision as to transition his care to Hospice versus to continue aggressive disease directed therapy. (2) Nausea & vomiting Status: Acute Plan: Control is much improved with Zofran and dexamethasone. I have Taper dexamethasone to 1 mg twice daily and would suggest a rapid taper over the course of 1 week. (3) Neutropenic fever Status: Acute Plan: --Secondary to myelosuppression from chemotherapy. --Neutropenic resolved --on antibiotic (Zosyn) --BC no growth (4) SVC syndrome Status: Chronic Plan: --Lovenox 40 mg sq daily (5) Pain due to malignant neoplasm metastatic to bone Status: Chronic Plan: --on oramorph 45 mg q.8h.+ morphine sulfate 6 mg IV q 4 PRN Assessment 31y/o male with metastatic adenocarcinoma of the lung admitted with intractable vomiting + severe right sided chest pain. --on palliative systemic therapy with docetaxel/ramucirumab--most recent cycle of chemotherapy was on 12/28/2016 and since then he has had persistent nausea and vomiting. h/o Malignant pleural effusion. SVC syndrome; on chronic anticoagulation due to the SVC syndrome. Pericardial effusion. Congenital hydrocephalus. Asthma. 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 Percutaneous pericardiocentesis. Percutaneous CT-guided biopsy of mediastinal mass. Infusion port placement. Plan 1. Metastatic lung carcinoma: I will meet with him in the upcoming weeks to discuss goals of care and treatment going forward. If he wishes to pursue additional treatment I will dose reduce the docetaxel for the upcoming cycles so he does not have such severe adverse effects related to nausea. Additionally he may be a candidate for antiemetic therapy with emend. 2. Nausea and vomiting: Much improved with Zofran and dexamethasone. I have tapered down the dexamethasone from 2 mg by mouth twice daily down to 1 mg by mouth twice daily I would continue the 1 mg twice daily for 2 days and then decrease him to 0.5 mg twice daily for 2 days and then to 0.5 mg once daily for 2 days and then take him off entirely. 3. Disposition: The patient is able to tolerate his lunch without vomiting I would recommend he be discharged home when cleared by medicine. Problem Qualifiers (1) Metastatic lung cancer (metastasis from lung to other site): Qualified Code: C34.91 - Metastatic lung cancer (metastasis from lung to other site), right Tyler Hood MD January 08, 2017 10:00
[2017-01-08 10:07] LABS: BANDS 20 % (0-6); METAMYELOCYTES 1 % (0-1); MYELOCYTES 8 % (0-0); OVALOCYTES 1+ (NORMAL); PLATELET ESTIMATE SMEAR NORMAL (NORMAL); PLATELET MORPHOLOGY NORMAL (NORMAL); POLYS (SEG NEUTROPHILS) 62 % (16-70); SCAN/DIFF FINAL DIFF MANUAL; WBC DIFF SAMPLE 100
[2017-01-08 12:00] VITALS: BP 101/71; PULSE 86; RESP 20; TEMP 96.5; O2SAT 97
[2017-01-08 13:13] VITALS: RESP 16
[2017-01-08] MEDS ORDERED: ZOFR4TAB PO (13:30)
[2017-01-08] MEDS ORDERED: DEXA0.5T PO (13:30)
[2017-01-08] MEDS ORDERED: LEVO500T8 PO (13:30)
[2017-01-08] MEDS ORDERED: MORP1TAB24 PO (13:30)
[2017-01-08] MEDS ORDERED: MAGICADU2 SWISH-SWAL (13:30)
--- NOTE | 2017-01-08 13:31 | HHI.DCPOC ---
Discharge Care Plan Diagnosis: (1) Metastatic lung cancer (metastasis from lung to other site) (2) Neutropenic fever (3) SVC syndrome Goals to Promote Your Health * To prevent worsening of your condition and complications * To maintain your health at the optimal level Directions to Meet Your Goals Take your medications as prescribed Follow your dietary instruction Follow activity as directed Keep your appointments as scheduled Take your immunizations and boosters as scheduled If your symptoms worsen call your PCP, if no PCP go to Urgent Care Center or Emergency Room Smoking is Dangerous to Your Health. Avoid second hand smoke Call the 24-hour hour crisis hotline for domestic abuse at Rom Benjamin MD January 08, 2017 13:31
[2017-01-08] MEDS ORDERED: DEXAMETHASONE 0.5 MG TAB PO SCH (21:00)
--- NOTE | 2017-01-25 15:10 | HHI.DS ---
Discharge Summary Admission Date January 05, 2017 at 12:04 Discharge Date: January 08, 2017 Admitting Diagnosis Neutropenia (1) Nausea & vomiting Diagnosis: Principal (2) Neutropenia Diagnosis: Secondary (3) Metastatic lung cancer (metastasis from lung to other site) Diagnosis: Secondary (4) Pain due to malignant neoplasm metastatic to bone Diagnosis: Secondary Consultants Dr. Tyler Hood - Oncology Brief History Mr. 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 He had initial pericardiocentesis and pericarditis and was found to have bone mets. Pt had initiation of chemoradiation and follows with Dr Hood. He was admitted 11/2016 with a right pneumothorax which was treated with just oxygen and no chest tube was necessary at that time. Pt was admitted last week with SOB and was found to have a right pleural effusion. He had a right thoracentesis with removal of 650cc of fluid. Pt presented back to the ED at [facility] on 01/04/17 with complaints of persistent nausea and vomiting which has been going on since his most recent cycle of chemotherapy on 12/28/2016 . Pt also reports that he went on a cruise the day after his chemo. He denies any abd pain, hematemesis, coffee-ground emesis. Pt was noted to be neutropenic at admission and mildly febrile this morning. Pt was given Zosyn, Neupogen and Decadron last night. Imaging Last Impressions Chest X-Ray 01/04/17 0000 Signed Impressions: Service Date/Time: December 22:32 - CONCLUSION: Cavitation developing of the right upper lobe consolidation. Persistent volume loss and pleural thickening. Jimenez Osman MD Hospital Course Pt is a 31 y/o with metastatic right lung adenocarcinoma with mediastinal adenopathy resulting in SVC syndrome, and near complete compression of right pulmonary artery in 05/2016. Pt has been having issues with persistent nausea and vomiting which has been going on since his most recent cycle of chemotherapy on 12/28/2016. No reported abd pain, hematemesis, coffee-ground emesis. Presented with neutropenic fever. Blood cultures drawn 01/05 were negative. pt was give Neupogen and his neutropenia resolved. Pt was covered with IV Zosyn empirically. He had clinical improvement in his N/V and was with Zofran and dexamethasone. Dr. Hood tapered down the dexamethasone from 2 mg by mouth twice daily down to 1 mg by mouth twice daily and was going to continue his taper as an outpt. Pt was able to tolerate oral intake prior to discharge. Pt was recommended to followup with Dr. Hood in 1 week. Pt Condition on Discharge: Stable Discharge Disposition: Discharge Home Discharge Instructions DIET: Follow Instructions for: As Tolerated, No Restrictions Activities you can perform: Regular-No Restrictions Follow up Referrals: Oncology - [address] Hood New Medications: Morphine ER (Morphine ER) 15 Mg Tab 45 MG PO Q8H Pain Management #100 TAB Continued Medications: Albuterol 18 GM Inh (Ventolin Hfa 18 GM Inh) 90 Mcg/Act Aer 2 PUFF INH QID Shortness of Breath #1 Ref 0 INHALER Apixaban (Eliquis) 2.5 Mg Tab 2.5 MG PO BID Blood Clot Prevention Ref 0 TAB Folic Acid (Folic Acid) 400 Mcg Tab 400 MCG PO DAILY Nutritional Supplement Ref 0 TAB Ondansetron (Zofran) 4 Mg Tab 4 MG PO Q6HR PRN NAUSEA OR VOMITING #30 Ref 0 TAB (This prescription has been renewed) Oxycodone (Oxycodone) 5 Mg Cap 15 MG PO Q4H PRN PAIN Ref 0 CAP Pantoprazole (Protonix) 40 Mg Tab 40 MG PO DAILY Reflux #30 Ref 0 TAB Zolpidem (Ambien) 5 Mg Tab 5 MG PO HS PRN INSOMNIA Ref 0 TAB Discontinued Medications: Morphine ER (Morphine ER) 30 Mg Tab 30 MG PO Q8H Pain Management Ref 0 TAB Mine Pendleton Jan 25, 2017 15:10
== END 2017-01-08 15:45 | disposition home or self-care (01) | DRG 809 ==
LOC: NEPE 21:18 → NEDA 01-05 00:32 → HOCA 01-05 02:37 → OBSVTOIN 01-05 12:04
PROVIDERS: ADMIT Hospitalist; ATTEND Hospitalist
DX: D70.1 Agranulocytosis secondary to cancer chemotherapy (principal); I87.1 Compression of vein; J91.0 Malignant pleural effusion; C79.51 Secondary malignant neoplasm of bone; I31.3 Pericardial effusion (noninflammatory); C34.91 Malignant neoplasm of unspecified part of right bronchus or lung; J45.909 Unspecified asthma, uncomplicated; F32.9 Major depressive disorder, single episode, unspecified; G89.3 Neoplasm related pain (acute) (chronic); F41.9 Anxiety disorder, unspecified; Z98.2 Presence of cerebrospinal fluid drainage device; Q03.9 Congenital hydrocephalus, unspecified; Z87.891 Personal history of nicotine dependence; Z79.01 Long term (current) use of anticoagulants
CPT/HCPCS: 71010; 80048; 80053; 82550; 83605; 84484; 85007; 85027; 85610; 85730; 87040; 96361; 96374; 96375; J1100; J1442; J1650; J2270; J2405; J2543; J3480; J7030; J8540

== ENCOUNTER 2017-01-14 10:45 | Inpatient (IN) | payer MEDICAID, OTHER ==
[~2017-01-14] VITALS: Ht 193 cm; Wt 64.5 kg
[2017-01-14] VITALS (9 sets, daily range): BP systolic 97–120; BP diastolic 56–79; PULSE 104–120; RESP 16–24; TEMP 97.7–99.7; O2SAT 89–100
[~2017-01-14 10:45] MED LIST changes: +DEXA0.5T PO; -FERR325T PO; -GABA300C5 PO; +LEVO500T8 PO; +MAGICADU2 SWISH-SWAL; -MIRA33504 PO; +MORP1TAB24 PO; -MS C30TA PO; -MULT-135 PO; -NAPR220T95 PO; -PROM25TA5 INJ; -UNIS25TA2 PO
--- NOTE | 2017-01-14 11:49 | PD ---
HPI Chief Complaint: Respiratory Distress Time Seen by Provider: 11:45 Travel History International Travel<30 days: No Contact w/Intl Traveler<30days: No Traveled to known affect area: No History of Present Illness HPI 31-year-old male that presents to the ED for evaluation of shortness of breath. Patient has a known history of stage IV lung cancer. Patient last had chemotherapy 3 weeks ago. Patient was just released from the hospital on Sunday for evaluation of neutropenia. Patient condition urologist 2 days ago and per patient for the past 2 days she's been developing worsening shortness of breath. Per patient he does not use oxygen at home but he does use breathing treatments at home with minimal relief. Per patient he didn't use any today. He denies abdominal pain. Nausea vomiting. Per patient he does have sweats, but no fever but also having chills. Denies any chest pain. Patient's oncologist is Dr. Frazier. No allergies to medication. Shortness of breath gets worse with exertion but also with sitting. He does also have a history of spontaneous pneumothorax in the past and pneumonia. PFSH Past Medical History Arthritis: No Asthma: Yes Blood Disorders: No Anxiety: Yes Depression: Yes Heart Rhythm Problems: No Cancer: Yes (LUNG CA STAGE 4) Cardiovascular Problems: No High Cholesterol: No Chemotherapy: Yes (EVERY 3 WEEKS, DONE LAST SUNDAY (12/28/16)) Chest Pain: No Congestive Heart Failure: No COPD: No Cerebrovascular Accident: No Diabetes: No Diminished Hearing: No Endocrine: No Gastrointestinal Disorders: Yes GERD: No Genitourinary: No Hiatal Hernia: No Immune Disorder: No Implanted Vascular Access Dvce: Yes (left chest port) Kidney Stones: No Musculoskeletal: No Neurologic: Yes (HYDROCEPHALIS) Psychiatric: Yes Reproductive: No Respiratory: Yes (POSSIBLE ASTHMA) Immunizations Current: Yes Migraines: No Radiation Therapy: Yes (OCTOBER 2016) Renal Failure: No Seizures: No Sleep Apnea: No Thyroid Disease: No Ulcer: No Past Surgical History Abdominal Surgery: No AICD: No Body Medical Devices: OR RN SHUNT Cardiac Surgery: No Ear Surgery: No Eye Surgery: No Genitourinary Surgery: No Gynecologic Surgery: No Insulin Pump: No Joint Replacement: No Neurologic Surgery: Yes (OR RN SHUNT WITH REVISION AST IN 1991, NERVE BLOCK FOR PAIN (01/03/17)) Oral Surgery: No Pacemaker: No Thoracic Surgery: No Other Surgery: Yes (PYELONIDAL CYST REMOVAL, FLUID REMOVED FROM L LUNG (12/2016) ) Social History Alcohol Use: No Tobacco Use: No Substance Use: No Allergies-Medications (Allergen,Severity, Reaction): Coded Allergies: No Known Allergies (Verified , 01/14/17) Reported Meds & Prescriptions Reported Meds & Active Scripts Active Morphine ER (Morphine Sulfate) 15 Mg Tab 45 Mg PO Q8H Zofran (Ondansetron HCl) 4 Mg Tab 4 Mg PO Q6HR PRN Reported Magic Mouthwash Adult Liq (Multi-Ingredient Mouthwash/Gargle) 120 Ml Susp 5 Ml SWISH-SWAL QID PRN Each 5mL contains: Nystatin 200,000units, Diphenhydramine 4.25mg, Viscous Lidocaine 10mg, Cyr syrup 0.8 mL Sertraline (Sertraline HCl) 50 Mg Tab 50 Mg PO DAILY Ambien (Zolpidem Tartrate) 5 Mg Tab 5 Mg PO HS PRN Folic Acid 400 Mcg Tab 400 Mcg PO DAILY Oxycodone (Oxycodone HCl) 5 Mg Cap 15 Mg PO Q4H PRN Protonix (Pantoprazole Sodium) 40 Mg Tab 40 Mg PO DAILY Eliquis (Apixaban) 2.5 Mg Tab 2.5 Mg PO BID Ventolin Hfa 18 GM Inh (Albuterol Sulfate) 90 Mcg/Act Aer 2 Puff INH QID Review of Systems Except as stated in HPI: all other systems reviewed are Neg Physical Exam Narrative GENERAL: SKIN: Warm and dry. HEAD: Atraumatic. Normocephalic. EYES: Pupils equal and round. No scleral icterus. No injection or drainage. ENT: No nasal bleeding or discharge. Mucous membranes pink and moist. Tongue is midline. No uvula deviation. NECK: Trachea midline. No JVD. CARDIOVASCULAR: Regular rate and rhythm. No murmurs, S3, S4. RESPIRATORY: No accessory muscle use. Mild rales heard in the lower lung blanco. Breath sounds equal bilaterally. GASTROINTESTINAL: Abdomen soft, non-tender, nondistended. Hepatic and splenic margins not palpable. MUSCULOSKELETAL: Extremities without clubbing, cyanosis, or edema. No obvious deformities. Full range of motion of the upper and lower extremities bilaterally. 2+ pulses bilaterally. NEUROLOGICAL: Awake and alert. No obvious cranial nerve deficits. Motor grossly within normal limits. Five out of 5 muscle strength in the arms and legs. Normal speech. PSYCHIATRIC: Appropriate mood and affect; insight and judgment normal. Data Data Last Documented VS Vital Signs Date Time Temp Pulse Resp B/P Pulse Ox O2 Delivery O2 Flow Rate FiO2 01/14/17 12:12 100 Aerosol Mask 15 01/14/17 12:12 18 01/14/17 10:47 97.7 120 111/79 Orders Electrocardiogram (01/14/17 11:25) Complete Blood Count With Diff (01/14/17 11:25) Basic Metabolic Panel (Bmp) (01/14/17 11:25) Ckmb (Isoenzyme) Profile (01/14/17 11:25) Troponin I (01/14/17 11:25) Prothrombin Time / Inr (Pt) (01/14/17 11:25) Act Partial Throm Time (Ptt) (01/14/17 11:25) Magnesium (Mg) (01/14/17 11:25) Chest, Single Ap (01/14/17 11:25) Ecg Monitoring (01/14/17 11:31) Oximetry (01/14/17 11:31) Oxygen Administration (01/14/17 11:31) Albuterol-Ipratropium Neb (Duoneb Neb) (01/14/17 11:45) Lactic Acid Sepsis Protocol (01/14/17 11:32) Blood Culture (01/14/17 12:41) Urinalysis - C+S If Indicated (01/14/17 12:41) Piperacil-Tazo 4.5 Gm Premix (Zosyn 4.5 (01/14/17 12:43) Azithromycin Inj (Zithromax Inj) (01/14/17 12:43) Ct Pulmonary Angiogram (01/14/17 ) Morphine Inj (Morphine Inj) (01/14/17 13:00) Ondansetron Inj (Zofran Inj) (01/14/17 13:45) Ondansetron Inj (Zofran Inj) (01/14/17 13:45) Iohexol 350 Inj (Omnipaque 350 Inj) (01/14/17 13:44) Sodium Chlor 0.9% 1000 Ml Inj (Ns 1000 M (01/14/17 14:00) Admit Order (Ed Use Only) (01/14/17 13:58) Physician Name Changes (01/14/17 ) Labs Laboratory Tests Test 01/14/17 12:00 White Blood Count 21.8 TH/MM3 Red Blood Count 3.91 MIL/MM3 Hemoglobin 11.4 GM/DL Hematocrit 33.9 % Mean Corpuscular Volume 86.8 FL Mean Corpuscular Hemoglobin 29.3 PG Mean Corpuscular Hemoglobin 33.7 % Concent Red Cell Distribution Width 19.6 % Platelet Count 327 TH/MM3 Mean Platelet Volume 8.2 FL Neutrophils (%) (Auto) 90.2 % Lymphocytes (%) (Auto) 2.5 % Monocytes (%) (Auto) 7.2 % Eosinophils (%) (Auto) 0.0 % Basophils (%) (Auto) 0.1 % Neutrophils # (Auto) 19.6 TH/MM3 Lymphocytes # (Auto) 0.5 TH/MM3 Monocytes # (Auto) 1.6 TH/MM3 Eosinophils # (Auto) 0.0 TH/MM3 Basophils # (Auto) 0.0 TH/MM3 CBC Comment AUTO DIFF Differential Total Cells 100 Counted Neutrophils % (Manual) 76 % Band Neutrophils % 13 % Lymphocytes % 3 % Monocytes % 8 % Neutrophils # (Manual) 19.4 TH/MM3 Differential Comment FINAL DIFF MANUAL Toxic Granulation 1+ Platelet Estimate NORMAL Platelet Morphology Comment NORMAL Prothrombin Time 12.3 SEC Prothromb Time International 1.1 RATIO Ratio Activated Partial 38.8 SEC Thromboplast Time Sodium Level 134 MEQ/L Potassium Level 3.7 MEQ/L Chloride Level 96 MEQ/L Carbon Dioxide Level 27.2 MEQ/L Anion Gap 11 MEQ/L Blood Urea Nitrogen 11 MG/DL Creatinine 0.62 MG/DL Estimat Glomerular Filtration 149 ML/MIN Rate Random Glucose 68 MG/DL Lactic Acid Level 2.5 mmol/L Calcium Level 9.2 MG/DL Magnesium Level 2.2 MG/DL Total Creatine Kinase 22 U/L Troponin I LESS THAN 0.02 NG/ML MDM Medical Decision Making Medical Screen Exam Complete: Yes Emergency Medical Condition: Yes Medical Record Reviewed: Yes Interpretation(s) CBC & BMP Diagram 01/14/17 12:00 LFTS WNL troponin negative LActic acid 2.6 Last Impressions Chest X-Ray 01/14/17 1125 Signed Impressions: Service Date/Time: Saturday, January 14, 2017 11:53 - CONCLUSION: Cavitary area in the right upper lung again seen with adjacent consolidation. New patchy right lung base opacity. Saurabh Reese MD Coags slightly elevated Differential Diagnosis Pneumonia versus pneumothorax versus lung cancer versus pericardial effusion versus neutropenic fever versus neutropenia Narrative Course 31-year-old male that presents to the ED for evaluation of shortness of breath. Patient was properly examined and was found to have signs and symptoms consistent with shortness of breath. Unclear etiology. Diameter, labs and imaging. Patient was given oxygen as well as breathing treatments here. Labs and imaging showed elevated white blood cell count as well as lactic acid and tachycardia as well as possible new consolidation in the right lower lung possible for pneumonia. Case was discussed in my attending Dr. Weinstein who evaluated the patient with me. She agrees with admission. Patient apparently just lost his [email or web address] care insurance on January and now he is self pay per registration and patient. Patient now is self-pay but still follows with Dr. Mosher and Dr. Coughlin. My attending evaluated the patient with me and recommends starting patient on prophylactic antibiotics for community-acquired pneumonia. During patient's last admission there was a consideration for hospice. Patient agrees with admission. Dr hernandez agrees to admission to [facility] service. Sepsis Criteria SIRS Criteria (2 or more): Heart rate over 90, WBC > 33088, < 4000 or > 10% bands Sepsis Criteria (SIRS+source): Infect source susp/known Severe Sepsis (+one): Lactate >2 Criteria Outcome: Meets severe sepsis criteria Diagnosis Primary Impression: Pneumonia Qualified Code: J18.1 - Pneumonia of right lower lobe due to infectious organism Additional Impressions: Metastatic lung cancer (metastasis from lung to other site) Qualified Code: C34.91 - Metastatic lung cancer (metastasis from lung to other site), right Sepsis Qualified Code: A41.9 - Sepsis, due to unspecified organism Admitting Information Admitting Physician Requests: Admit Tucker Ortiz Jan 14, 2017 11:49 Admitting Physician Requests: it Tucker Ortiz Jan 14, 2017 11:49
[2017-01-14] MEDS: RESP: ALBUTEROL 2.5 MG/IPRATROPIUM 0.5 MG NEB (SCH) INH (12:04)
--- NOTE | 2017-01-14 12:23 | RADRPT ---
EXAM DATE/TIME: 01/14/2017 11:53 [facility] COMPARISON: CHEST SINGLE AP, January 04, 2017, 22:32. INDICATIONS : Short of breath. MEDICAL HISTORY : Carcinoma, lung. SURGICAL HISTORY : Infusaport. ENCOUNTER: Initial ACUITY: 3 days PAIN SCORE: 5/10 LOCATION: Bilateral chest FINDINGS: Single AP view of the chest. Cavity is again identified in the right upper lung with surrounding cons olidation. Opacity is slightly increased from the prior study. New patchy opacity right lung base. Le ft lung clear. [id number] remains in place. CONCLUSION: Cavitary area in the right upper lung again seen with adjacent consolidation. New patchy right lung b ase opacity. Saurabh Reese MD on January 14, 2017 at 12:18 Board Certified Radiologist. This report was verified electronically.
[2017-01-14 12:37] LABS: AUTOMATED NEUTROPHIL # 19.6 TH/MM3 (1.8-7.7); BASOPHIL % 0.1 % (0.0-2.0); HEMATOCRIT 33.9 % (39.0-51.0); LYMPH % 2.5 % (9.0-44.0); LYMPHOCYTE # 0.5 TH/MM3 (1.0-4.8); MEAN CELL VOLUME 86.8 FL (80.0-100.0); MEAN CORPUSCULAR HEMOGLOBIN 29.3 PG (27.0-34.0); MEAN CORPUSCULAR HGB CONC 33.7 % (32.0-36.0); MONO % 7.2 % (0.0-8.0); NEUT % 90.2 % (16.0-70.0); PLATELET COUNT 327 TH/MM3 (150-450); RED BLOOD COUNT 3.91 MIL/MM3 (4.50-5.90); RED CELL DISTRIBUTION WIDTH 19.6 % (11.6-17.2); WHITE BLOOD COUNT 21.8 TH/MM3 (4.0-11.0)
[2017-01-14 12:39] LABS: HEMO FLAGS AUTO DIFF
[2017-01-14] MEDS ORDERED: AZITHROMYCIN INJ 500 MG in SODIUM CHLOR 0.9% 250 ML INJ 250 ML IV STA (12:43)
[2017-01-14] MEDS ORDERED: PIPERACIL-TAZO 4.5 GM PREMIX 100 ML IV STA (12:43)
[2017-01-14 12:50] LABS: APTT (PATIENT) 38.8 SEC (24.3-30.1); INTERNATIONAL NORMALIZED RATIO 1.1 RATIO; PROTHROMBIN TIME - PATIENT 12.3 SEC (9.8-11.6)
[2017-01-14 12:51] LABS: ANION GAP 11 MEQ/L (5-15); BICARBONATE 27.2 MEQ/L (21.0-32.0); BLOOD UREA NITROGEN 11 MG/DL (7-18); CHLORIDE 96 MEQ/L (98-107); GLOMERULAR FILTRATION RATE 149 ML/MIN (>89); MAGNESIUM 2.2 MG/DL (1.5-2.5); POTASSIUM 3.7 MEQ/L (3.5-5.1); SODIUM (NA) 134 MEQ/L (136-145)
[2017-01-14 12:57] LABS: CREATINE KINASE 22 U/L (39-308)
[2017-01-14] MEDS ORDERED: MORPHINE SULFATE 4 MG/ML INJ IV PUSH ONE (13:00)
[2017-01-14 13:09] LABS: BANDS 13 % (0-6); NEUTROPHIL # MANUAL DIFF 19.4 TH/MM3 (1.8-7.7); PLATELET ESTIMATE SMEAR NORMAL (NORMAL); PLATELET MORPHOLOGY NORMAL (NORMAL); POLYS (SEG NEUTROPHILS) 76 % (16-70); SCAN/DIFF FINAL DIFF MANUAL; TOXIC GRANULATION 1+ (NORMAL); WBC DIFF SAMPLE 100
[2017-01-14] MEDS ORDERED: IOHEXOL 350 MG/ML 10 ML VIAL (for RAD DIAG) IV ONE (13:44)
[2017-01-14] MEDS ORDERED: ONDANSETRON HCL 4 MG/2 ML VIAL IV PUSH ONE ×2 (13:45)
--- NOTE | 2017-01-14 13:53 | PD ---
Physical Exam Narrative GENERAL: Ill-appearing, well-developed patient. SKIN: Warm and dry. HEAD: Normocephalic EYES: No injection or drainage. ENT: No nasal drainage noted. NECK: Supple, trachea midline. CARDIOVASCULAR: Tachycardic rate and regular rhythm RESPIRATORY: Breath sounds equal bilaterally at apices. No accessory muscle use. GASTROINTESTINAL: Abdomen soft, non-tender, nondistended. NEUROLOGICAL: Awake and alert. Moves all extremities. Normal speech. Data Data Last Documented VS Vital Signs Date Time Temp Pulse Resp B/P Pulse Ox O2 Delivery O2 Flow Rate FiO2 01/14/17 12:12 100 Aerosol Mask 15 01/14/17 12:12 18 01/14/17 10:47 97.7 120 111/79 Orders Electrocardiogram (01/14/17 11:25) Complete Blood Count With Diff (01/14/17 11:25) Basic Metabolic Panel (Bmp) (01/14/17 11:25) Ckmb (Isoenzyme) Profile (01/14/17 11:25) Troponin I (01/14/17 11:25) Prothrombin Time / Inr (Pt) (01/14/17 11:25) Act Partial Throm Time (Ptt) (01/14/17 11:25) Magnesium (Mg) (01/14/17 11:25) Chest, Single Ap (01/14/17 11:25) Ecg Monitoring (01/14/17 11:31) Oximetry (01/14/17 11:31) Oxygen Administration (01/14/17 11:31) Albuterol-Ipratropium Neb (Duoneb Neb) (01/14/17 11:45) Lactic Acid Sepsis Protocol (01/14/17 11:32) Blood Culture (01/14/17 12:41) Urinalysis - C+S If Indicated (01/14/17 12:41) Piperacil-Tazo 4.5 Gm Premix (Zosyn 4.5 (01/14/17 12:43) Azithromycin Inj (Zithromax Inj) (01/14/17 12:43) Ct Pulmonary Angiogram (01/14/17 ) Morphine Inj (Morphine Inj) (01/14/17 13:00) Ondansetron Inj (Zofran Inj) (01/14/17 13:45) Ondansetron Inj (Zofran Inj) (01/14/17 13:45) Iohexol 350 Inj (Omnipaque 350 Inj) (01/14/17 13:44) Sodium Chlor 0.9% 1000 Ml Inj (Ns 1000 M (01/14/17 14:00) Admit Order (Ed Use Only) (01/14/17 13:58) Physician Name Changes (01/14/17 ) Labs Laboratory Tests Test 01/14/17 12:00 White Blood Count 21.8 TH/MM3 Red Blood Count 3.91 MIL/MM3 Hemoglobin 11.4 GM/DL Hematocrit 33.9 % Mean Corpuscular Volume 86.8 FL Mean Corpuscular Hemoglobin 29.3 PG Mean Corpuscular Hemoglobin 33.7 % Concent Red Cell Distribution Width 19.6 % Platelet Count 327 TH/MM3 Mean Platelet Volume 8.2 FL Neutrophils (%) (Auto) 90.2 % Lymphocytes (%) (Auto) 2.5 % Monocytes (%) (Auto) 7.2 % Eosinophils (%) (Auto) 0.0 % Basophils (%) (Auto) 0.1 % Neutrophils # (Auto) 19.6 TH/MM3 Lymphocytes # (Auto) 0.5 TH/MM3 Monocytes # (Auto) 1.6 TH/MM3 Eosinophils # (Auto) 0.0 TH/MM3 Basophils # (Auto) 0.0 TH/MM3 CBC Comment AUTO DIFF Differential Total Cells 100 Counted Neutrophils % (Manual) 76 % Band Neutrophils % 13 % Lymphocytes % 3 % Monocytes % 8 % Neutrophils # (Manual) 19.4 TH/MM3 Differential Comment FINAL DIFF MANUAL Toxic Granulation 1+ Platelet Estimate NORMAL Platelet Morphology Comment NORMAL Prothrombin Time 12.3 SEC Prothromb Time International 1.1 RATIO Ratio Activated Partial 38.8 SEC Thromboplast Time Sodium Level 134 MEQ/L Potassium Level 3.7 MEQ/L Chloride Level 96 MEQ/L Carbon Dioxide Level 27.2 MEQ/L Anion Gap 11 MEQ/L Blood Urea Nitrogen 11 MG/DL Creatinine 0.62 MG/DL Estimat Glomerular Filtration 149 ML/MIN Rate Random Glucose 68 MG/DL Lactic Acid Level 2.5 mmol/L Calcium Level 9.2 MG/DL Magnesium Level 2.2 MG/DL Total Creatine Kinase 22 U/L Troponin I LESS THAN 0.02 NG/ML [facility] Medical Record Reviewed: Yes (past history confirmed) Supervised Visit with MAGDY: Yes Interpretation(s) CBC & BMP Diagram 01/14/17 12:00 Last 24 hours Impressions Chest X-Ray 01/14/17 1125 Signed Impressions: Service Date/Time: Saturday, January 14, 2017 11:53 - CONCLUSION: Cavitary area in the right upper lung again seen with adjacent consolidation. New patchy right lung base opacity. Saurabh Reese MD Narrative Course I, Dr. ness, have reviewed the advance practice practitioner's documentation and am in agreement, met with the patient face to face, made the diagnosis, and the medical decision making was done by me. *My assessment and Findings: 31-year-old male with extensive lung cancer with recent admission with pericardial and pleural effusion presents with shortness of breath requiring oxygen. Patient has elevated white count but recently had Neupogen with neutropenia. Chest x-ray shows possible infiltrate and with recent hospitalization he'll be given hospital-acquired pneumonia coverage. CT chest will be ordered to rule out PE or other emergent process and he'll be admitted to the hospital for further care Sepsis Criteria SIRS Criteria (2 or more): Heart rate over 90, WBC > 28817, < 4000 or > 10% bands Sepsis Criteria (SIRS+source): Infect source susp/known Severe Sepsis (+one): Lactate >2 Criteria Outcome: Meets severe sepsis criteria Diagnosis Primary Impression: Pneumonia Qualified Code: J18.1 - Pneumonia of right lower lobe due to infectious organism Additional Impressions: Sepsis Qualified Code: A41.9 - Sepsis, due to unspecified organism Metastatic lung cancer (metastasis from lung to other site) Qualified Code: C34.91 - Metastatic lung cancer (metastasis from lung to other site), right Mediastinal mass Admitting Information Admitting Physician Requests: Admit Verónica Ness MD Jan 14, 2017 13:53
[2017-01-14] MEDS ORDERED: SODIUM CHLOR 0.9% 1000 ML INJ 1,000 ML IV ONE (14:00)
[2017-01-14] MEDS ORDERED: MAGICADU2 SWISH-SWAL (14:20)
[2017-01-14] MEDS ORDERED: SERT-132 PO (14:20)
[2017-01-14 14:33] LABS: LACTIC ACID GHOST NOT REPORTABLE
--- NOTE | 2017-01-14 14:37 | RADRPT ---
EXAM DATE/TIME: 01/14/2017 13:43 [facility] COMPARISON: CHEST SINGLE AP, January 04, 2017, 22:32. CHEST EXPIRATION ONLY, December 27, 2016, 14:47. CT THORAX W/O CON TRAST, December 26, 2016, 15:50. CT PULMONARY ANGIOGRAM, December 02, 2016, 22:42. INDICATIONS : Shortness of breath today. IV CONTRAST: 70 cc Omnipaque 350 (iohexol) IV RADIATION DOSE: 23.41 CTDIvol (mGy) MEDICAL HISTORY : Carcinoma, lung. Gastroesophageal reflux disease. Chemotherapy. SURGICAL HISTORY : CLAY ARTISAN shunt ENCOUNTER: Initial ACUITY: 1 day PAIN SCALE: 0/10 LOCATION: Bilateral chest TECHNIQUE: Volumetric scanning of the chest was performed using a pulmonary embolism protocol MIP images were re constructed. Using automated exposure control and adjustment of the mA and/or kV according to patien t size, radiation dose was kept as low as reasonably achievable to obtain optimal diagnostic quality images. FINDINGS: PULMONARY ARTERIES: No filling defects are seen in the pulmonary arteries through the segmental level. LUNGS/MEDIASTINUM: When compared to prior CT examination, there has been interval development of a cavity in the right u pper lung measuring 8 cm in diameter with a large air-fluid level this is seen on prior chest x-ray o f 01/04/2017. Surrounding medial right upper lung consolidation has increased. Increased centrilobular opacities in the right middle lobe and right lower lobe. Right paratracheal mass now measures 3.2 x 3.5 cm unchanged. Precarinal lymph node calcification again noted. Occluded SVC with prominent collat erals again noted. Aorta is within normal limits. Patchy nodular left lung opacity again seen and unc hanged. Inferior left lower lobe atelectasis is less prominent. PLEURAE: Small bilateral pleural effusions. MUSCULOSKELETAL: Posterior left chest wall mass with rib erosion unchanged. MISCELLANEOUS: Upper abdomen unchanged. CONCLUSION: 1. No evidence of pulmonary embolus. 2. Large right upper lung cavity new when compared to prior CT. This finding is seen on prior chest x -ray. 3. Increased surrounding right upper lung consolidation. Increased right middle lobe and lower lobe c entrilobular opacities may represent endobronchial spread of infection. 4. Paratracheal mediastinal mass unchanged. Left posterior chest wall mass unchanged. 5. Patchy left lung opacity again noted. 6. Small bilateral pleural effusions. Saurabh Reese MD on January 14, 2017 at 14:19 Board Certified Radiologist. This report was verified electronically.
[2017-01-14] MEDS: SODIUM CHLOR 0.9% 1000 ML INJ 1,000 ML IV SCH (14:42)
[2017-01-14] MEDS ORDERED: ONDANSETRON HCL 4 MG/2 ML VIAL IVP PRN (14:45)
[2017-01-14] MEDS ORDERED: LACTULOSE SYRUP 20 GM/30 ML CUP PO PRN (14:45)
[2017-01-14] MEDS ORDERED: SODIUM CHLORIDE 0.9% FLUSH 10 ML FLUSH IV FLUSH PRN (14:45)
[2017-01-14] MEDS ORDERED: ACETAMINOPHEN 325 MG TAB PO PRN (14:45)
[2017-01-14] MEDS ORDERED: NALOXONE HCL 0.4 MG/ML AMP IV PRN (14:45)
[2017-01-14] MEDS ORDERED: ENOXAPARIN SODIUM 40 MG/0.4 ML SYRINGE SQ SCH (16:00)
[2017-01-14] MEDS ORDERED: cefTRIAXone INJ 1,000 MG in SODIUM CHLORIDE 0.9% INJ 100 ML IV SCH (16:00)
--- NOTE | 2017-01-14 16:40 | HHI.HP ---
HPI Service [facility] Primary Care Physician Cam Palacios MD Admission Diagnosis pneumonia, cancer Diagnoses: Chief Complaint: sob, cough. 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 Patient had an initial pericardiocentesis and pericarditis and was found to have bone metastases. Patient had initiation of chemoradiation and follows up with Dr. Hood. He's had multiple admissions for right pneumothorax with chest tube was necessary, pleural effusion and thoracentesis. Patient was recently admitted from 01/05 to 01/08 for neutropenic fever and nausea. Cultures were negative. Patient presented back to the emergency room today with complaints of shortness of breath, increased cough with sputum that is white to brown in color. Subjective fever, chills. He has chest pain which is chronic. His last chemotherapy was 3 weeks ago. He has not seen his oncologist her primary care physician. Patient was evaluated and laboratory workup was completed. CBC remarkable for leukocytosis, WBC 21.8, neutrophil 19.6, bandemia. Lactic acid was 2.5. Mild hyponatremia with sodium of 134. CTA was negative for pulmonary embolus. Large right upper lobe cavity U1 compared to prior CT this finding was seen on prior chest x-ray. Increased surrounding right upper lobe consolidation. Increased right middle lobe and lower lobe centrilobular opacities may represent endobronchial spread of infection. Paratracheal mediastinal mass unchanged. Left posterior chest wall mass unchanged. Patchy left lung opacity again noted. Small bilateral pleural effusions. Chest x-ray showed cavitary area in the right upper lung with adjacent consolidation. There was also new patchy right lung base opacity. Cultures were obtained, patient was started on empiric antibiotics. He received fluid resuscitation. Patient is now evaluated, he continues to complain of cough. He has chronic pain mainly over the right chest wall. Patient is admitted for further evaluation and treatment. Review of Systems Constitutional: COMPLAINS OF: Fever (subjective fever), Weight loss, Change in appetite (poor appetite), DENIES: Diaphoretic episodes, Fatigue, Weight gain, Chills, Dizziness, Night Sweats Endocrine: DENIES: Heat/cold intolerance, Polydipsia, Polyuria, Polyphagia Eyes: DENIES: Blurred vision, Diplopia, Eye inflammation, Eye pain, Vision loss , Photosensitivity, Double Vision Ears, nose, mouth, throat: DENIES: Tinnitus, Hearing loss, Vertigo, Nasal discharge, Oral lesions, Throat pain, Hoarseness, Ear Pain, Running Nose, Epistaxis, Sinus Pain, Toothache, Odynophagia Respiratory: COMPLAINS OF: Cough, Sputum production, DENIES: Apneas, Snoring, Wheezing, Hemoptysis, Shortness of breath Cardiovascular: COMPLAINS OF: Chest pain, DENIES: Palpitations, Syncope, Dyspnea on Exertion, PND, Lower Extremity Edema, Orthopnea, Claudication Gastrointestinal: DENIES: Abdominal pain, Black stools, Bloody stools, Constipation, Diarrhea, Nausea, Vomiting, Difficulty Swallowing, Anorexia Genitourinary: DENIES: Sexual dysfunction, Urinary frequency, Urinary incontinence, Urgency, Hematuria, Dysuria, Nocturia, Penile Discharge, Testicular Pain, Testicular Swelling Musculoskeletal: DENIES: Joint pain, Muscle aches, Stiffness, Joint Swelling, Back pain, Neck pain Integumentary: DENIES: Abnormal pigmentation, Nail changes, Pruritus, Rash Hematologic/lymphatic: DENIES: Bruising, Lymphadenopathy Immunologic/allergic: DENIES: Eczema, Urticaria Neurologic: DENIES: Abnormal gait, Headache, Localized weakness, Paresthesias, Seizures, Speech Problems, Tremor, Poor Balance Psychiatric: DENIES: Anxiety, Confusion, Mood changes, Depression, Hallucinations, Agitation, Suicidal Ideation, Homicidal Ideation, Delusions Past Family Social History Past Medical History Adenocarcinoma right lung, dx May 2016 with mediastinal mass causing SVC syndrome, near occlusion right pulmonary artery, malignant right pleural effusion and pericardial effusion and rib metastases s/ p radiation and now on chemotherapy with Dr. Hood Right pneumothorax Congenital hydrocephalus Asthma Anxiety/Depression Chronic pain Past Surgical History Pilonidal cyst surgery STONEWORK SUPERVISOR shunt placement and revision Radial shortening surgery Percutaneous pericardiocentesis Percutaneous CT-guided biopsy of mediastinal mass [id number] placement Reported Medications Reported Meds & Active Scripts Active Morphine ER (Morphine Sulfate) 15 Mg Tab 45 Mg PO Q8H Zofran (Ondansetron HCl) 4 Mg Tab 4 Mg PO Q6HR PRN Reported Magic Mouthwash Adult Liq (Multi-Ingredient Mouthwash/Gargle) 120 Ml Susp 5 Ml SWISH-SWAL QID PRN Each 5mL contains: Nystatin 200,000units, Diphenhydramine 4.25mg, Viscous Lidocaine 10mg, Cyr syrup 0.8 mL Sertraline (Sertraline HCl) 50 Mg Tab 50 Mg PO DAILY Ambien (Zolpidem Tartrate) 5 Mg Tab 5 Mg PO HS PRN Folic Acid 400 Mcg Tab 400 Mcg PO DAILY Oxycodone (Oxycodone HCl) 5 Mg Cap 15 Mg PO Q4H PRN Protonix (Pantoprazole Sodium) 40 Mg Tab 40 Mg PO DAILY Eliquis (Apixaban) 2.5 Mg Tab 2.5 Mg PO BID Ventolin Hfa 18 GM Inh (Albuterol Sulfate) 90 Mcg/Act Aer 2 Puff INH QID Allergies: Coded Allergies: No Known Allergies (Verified , 01/14/17) Active Ordered Medications Inpatient Medications Acetaminophen (Tylenol) 650 mg Q4H PRN PO TEMP > 100.4; Start 01/14/17 at 14:45 Albuterol/ Ipratropium 1 ampule 1 ampule Q15M INH Last administered on 12:04; Start 01/14/17 at 11:45; Stop 01/14/17 at 12:01; Status DC Azithromycin/ Sodium Chloride (Zithromax Inj/ NS 250 ml Inj) 250 ml @ 250 mls/ hr Q24H IV ; Start 01/14/17 at 17:00 Ceftriaxone Sodium 1000 mg/ Sodium Chloride 100 ml @ 200 mls/hr Q24H IV ; Start 01/14/17 at 16:00 Enoxaparin Sodium (Lovenox Inj) 40 mg Q24H SQ ; Start 01/14/17 at 16:00 Lactulose 30 ml 30 ml DAILY PRN PO SEVERE CONSITIPATION; Start 01/14/17 at 14:45 Morphine Sulfate (Morphine Inj) 3 mg ONCE ONCE IV PUSH Last administered on 13:13; Start 01/14/17 at 13:00; Stop 01/14/17 at 13:01; Status DC Naloxone HCl (Narcan Inj) 0.4 mg UNSCH PRN IV SEE LABEL COMMENTS; Start at 14:45 Ondansetron HCl (Zofran Inj) 4 mg Q6H PRN IVP NAUSEA OR VOMITING; Start at 14:45 Ondansetron HCl 4 mg 4 mg ONCE ONCE IV PUSH ; Start 01/14/17 at 13:45; Stop 01/14 at 13:46; Status DC Piperacillin Sod/ Tazobactam Sod (Zosyn 4.5 Gm Premix) 100 ml @ 200 mls/hr ONCE STAT IV Last administered on 01/14/17t 13:14; Start 01/14/17 at 12:43; Stop 01/14/17 at 13:12; Status DC Senna/Docusate Sodium (Fátima-Colace) 1 tab BID PO ; Start 01/14/17 at 21:00 Sodium Chloride (NS 1000 ml Inj) 1,000 ml @ 100 mls/hr Q10H IV ; Start 01/14/17 at 14:42 Sodium Chloride (NS Flush) 2 ml BID IV FLUSH ; Start 01/14/17 at 21:00 Family History Paternal grandmother had pancreas cancer Paternal grandfather had lung cancer. Social History (+)Hx of tobacco use, smoked 1ppd x 10 year, quit 2015 Denies any alcohol or illicit drug use Pt is single, he has no children. 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 Physical Exam Vital Signs Vital Signs Date Time Temp Pulse Resp B/P Pulse Ox O2 Delivery O2 Flow Rate FiO2 01/14/17 15:00 114 16 97/56 93 Nasal Cannula 4 01/14/17 13:00 120 16 120/77 95 Nasal Cannula 4 01/14/17 12:12 100 Aerosol Mask 15 01/14/17 12:12 18 100 Aerosol Mask 01/14/17 12:00 114 20 114/78 100 Aerosol Mask 15 01/14/17 11:23 92 Nasal Cannula 2 01/14/17 10:47 97.7 120 24 111/79 89 Room Air Physical Exam GENERAL: Thin built, chronically ill-appearing male. SKIN: No rashes, ecchymoses or lesions. Cool and dry. HEAD: Atraumatic. Normocephalic. No temporal or scalp tenderness. EYES: Pupils equal round and reactive. Extraocular motions intact. No scleral icterus. No injection or drainage. ENT: Nose without bleeding, purulent drainage or septal hematoma. Throat without erythema, tonsillar hypertrophy or exudate. Uvula midline. Airway patent. NECK: Trachea midline. No JVD or lymphadenopathy. Supple, nontender, no meningeal signs. CARDIOVASCULAR: Regular rate and rhythm without murmurs, gallops, or rubs. RESPIRATORY: Rhonchi to right lower base. GASTROINTESTINAL: Abdomen soft, non-tender, nondistended. No hepato-splenomegaly , or palpable masses. No guarding. MUSCULOSKELETAL: Extremities without clubbing, cyanosis, or edema. No joint tenderness, effusion, or edema noted. No calf tenderness. Negative Homans sign bilaterally. NEUROLOGICAL: Awake and alert. Cranial nerves II through XII intact. Motor and sensory grossly within normal limits. Five out of 5 muscle strength in all muscle groups. Normal speech. Laboratory Laboratory Tests Test 01/14/17 12:00 White Blood Count 21.8 Red Blood Count 3.91 Hemoglobin 11.4 Hematocrit 33.9 Mean Corpuscular Volume 86.8 Mean Corpuscular Hemoglobin 29.3 Mean Corpuscular Hemoglobin 33.7 Concent Red Cell Distribution Width 19.6 Platelet Count 327 Mean Platelet Volume 8.2 Neutrophils (%) (Auto) 90.2 Lymphocytes (%) (Auto) 2.5 Monocytes (%) (Auto) 7.2 Eosinophils (%) (Auto) 0.0 Basophils (%) (Auto) 0.1 Neutrophils # (Auto) 19.6 Lymphocytes # (Auto) 0.5 Monocytes # (Auto) 1.6 Eosinophils # (Auto) 0.0 Basophils # (Auto) 0.0 CBC Comment AUTO DIFF Differential Total Cells 100 Counted Neutrophils % (Manual) 76 Band Neutrophils % 13 Lymphocytes % 3 Monocytes % 8 Neutrophils # (Manual) 19.4 Differential Comment FINAL DIFF MANUAL Toxic Granulation 1+ Platelet Estimate NORMAL Platelet Morphology Comment NORMAL Prothrombin Time 12.3 Prothromb Time International 1.1 Ratio Activated Partial 38.8 Thromboplast Time Sodium Level 134 Potassium Level 3.7 Chloride Level 96 Carbon Dioxide Level 27.2 Anion Gap 11 Blood Urea Nitrogen 11 Creatinine 0.62 Estimat Glomerular Filtration 149 Rate Random Glucose 68 Lactic Acid Level 2.5 Calcium Level 9.2 Magnesium Level 2.2 Total Creatine Kinase 22 Troponin I LESS THAN 0.02 Date/Time Procedure Status Source Growth 01/14/17 13:12 Aerobic Blood Culture Received Blood Peripheral Pending 01/14/17 13:12 Anaerobic Blood Culture Received Blood Peripheral Pending Result Diagram: 01/14/17 1200 01/14/17 1200 Imaging Last Impressions Chest X-Ray 01/14/17 1125 Signed Impressions: Service Date/Time: Saturday, January 14, 2017 11:53 - CONCLUSION: Cavitary area in the right upper lung again seen with adjacent consolidation. New patchy right lung base opacity. Saurabh Reese MD CT Angiography 01/14/17 0000 Signed Impressions: Service Date/Time: Saturday, January 14, 2017 13:43 - CONCLUSION: 1. No evidence of pulmonary embolus. 2. Large right upper lung cavity new when compared to prior CT. This finding is seen on prior chest x-ray. 3. Increased surrounding right upper lung consolidation. Increased right middle lobe and lower lobe centrilobular opacities may represent endobronchial spread of infection. 4. Paratracheal mediastinal mass unchanged. Left posterior chest wall mass unchanged. 5. Patchy left lung opacity again noted. 6. Small bilateral pleural effusions. Saurabh Reese MD Assessment and Plan Problem List: (1) Sepsis (2) Pneumonia (3) Metastatic lung cancer (metastasis from lung to other site) (4) Anxiety and depression (5) Chronic pain (6) SVC syndrome (7) S/P STONEWORK SUPERVISOR shunt (8) Adenocarcinoma (9) Bony metastasis Assessment and Plan Admit to Dr. Velazquez 31-year-old male patient with diagnosis of right lung adenocarcinoma with metastases to the bone. Presented to the emergency room with increased cough, subjective fever, sputum, shortness of breath, chest pain. Chest x-ray completed showing possible new right lower lobe infiltrate. Elevated lactic acid with leukocytosis and tachycardia. Sepsis, possibly secondary to infectious process, pneumonia-right lower lobe infiltrate -Continue with normal saline at 100 an hour -Continue with empiric antibiotics and follow cultures. Continue with supplemental oxygen at 2 L to keep sats greater than 92% Proventil inhaler 4 times a day Robitussin when necessary Right lung adenocarcinoma with metastasis. Chemotherapy [address] Hood has been consulted SVC syndrome, on Eliquis -Continue Eliquis Depression and anxiety Continue Zoloft. Chronic pain Resume home regimen Continue with Eliquis for DVT prophylaxis Protonix for GI prophylaxis Patient's condition guarded. Plan of care has been discussed with the patient, attending and registered nurse. Further management of the patient will be dependent on the hospital course This patient was seen by myself and Dr. Velazquez, this H&P is written on her behalf Physician Certification 2 Midnight Certification Type: Admission for Inpatient Services Order for Inpatient Services The services are ordered in accordance with Medicare regulations or non- Medicare payer requirements, as applicable. In the case of services not specified as inpatient-only, they are appropriately provided as inpatient services in accordance with the 2-midnight benchmark. Estimated LOS (days): 2 2 days is the estimated time the patient will need to remain in the hospital, assuming treatment plan goals are met and no additional complications. Post-Hospital Plan: Not yet determined Problem Qualifiers (1) Sepsis: Qualified Code: A41.9 - Sepsis, due to unspecified organism (2) Pneumonia: Qualified Code: J18.1 - Pneumonia of right lower lobe due to infectious organism (3) Metastatic lung cancer (metastasis from lung to other site): Qualified Code: C34.91 - Metastatic lung cancer (metastasis from lung to other site), right (4) Chronic pain: Qualified Code: G89.3 - Chronic pain due to neoplasm Dariela Michaels Jan 14, 2017 16:40
[2017-01-14] MEDS ORDERED: guaiFENesin SOLUTION 200 MG/10 ML CUP PO PRN (17:00)
[2017-01-14] MEDS: ALBUTEROL SULFATE 90 MCG/ACT HFA 18 GM INHALER INH SCH ×2 (18:00→20:51)
[2017-01-14] MEDS: MORPHINE SULFATE 15 MG CONTROLLED RELEASE TAB PO SCH (18:18)
[2017-01-14] MEDS: AZITHROMYCIN INJ 500 MG in SODIUM CHLOR 0.9% 250 ML INJ 250 ML IV SCH (18:19)
--- NOTE | 2017-01-14 19:37 | MB ---
cc: GABINO ROSADO MD DATE OF CONSULTATION: 01/14/2017. REASON FOR CONSULTATION: REQUESTING PHYSICIAN: Consult requested by the hospitalist service. ONCOLOGIC DIAGNOSIS: Metastatic adenocarcinoma of the lung. CURRENT TREATMENT: The patient had been on palliative systemic therapy with docetaxel / ramucirumab. CHIEF COMPLAINT: 1. Difficulty breathing since earlier this morning. 2. Chills and sweats (drenching) last night without fever. HISTORY OF PRESENT ILLNESS: Fred is a 31-year-old man with a history of metastatic adenocarcinoma of the lung. His lung carcinoma is not associated with a transportation driver mutation and is negative for PDL-1 ligand expression. He initially presented in May of 2016 with SVC syndrome and a large mass infiltrating the mediastinum. The primary tumor appeared to be a right upper lobe lung mass. He was treated initially with concurrent chemoradiotherapy, and just after this was completed, he developed metastatic disease to the bones including his ribs, spine and metastatic disease to the visceral organs in the abdomen including his adrenal glands. He subsequently was initiated on palliative systemic chemotherapy along with palliative radiation to the symptomatic bony lesions. Ever since then, he has been on various lines of systemic chemotherapy including carboplatin, pemetrexed, Avastin, and most recently docetaxel / ramucirumab. Unfortunately over the past two or three weeks, he has really declined from a functional standpoint. He has had multiple hospitalizations over the past month or so for various reasons including pneumonia and difficulty breathing. He comes in today with the above-noted complaints. Imaging studies including CT angiogram performed in the emergency department revealed patchy infiltrates involving bilateral lung parenchyma as well as a new 6 cm cavitary lesion in the right lung with air fluid levels concerning for an abscess. PAST MEDICAL HISTORY: 1. Metastatic adenocarcinoma of the lung. 2. Malignant pleural effusions. 3. SVC syndrome. 4. Pericardial effusions. 5. Congenital hydrocephalus. 6. Asthma. 7. Anxiety. 8. Depression. 9. Chronic pain. PAST SURGICAL HISTORY: 1. Ventriculoperitoneal shunt placement and revision. 2. Radial shortening surgery. 3. Pilonidal cyst removal. 4. Percutaneous pericardiocentesis. 5. Percutaneous CT-guided biopsy of mediastinal mass. 6. Infusion port placement. FAMILY HISTORY: Parents are both alive. Maternal grandmother had pancreas cancer, paternal grandfather had lung cancer. SOCIAL HISTORY: Fred is single. He now lives at home with his mother and her . He has never had any children. 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 He is a former smoker with a cumulative 10 pack/year history of smoking. ALLERGIES: 1. CARBOPLATIN. 2. CAMPHOR. 3. PACLITAXEL. CURRENT INPATIENT MEDICATIONS: 1. Azithromycin 500 milligrams IV q.24 h. 2. Zosyn 4.5 grams IV q.8 h. 3. Normal saline 100 cc/hour. 4. Tylenol 650 milligrams p.o. q.4 h as needed for fever. 5. Apixaban 2.5 milligrams p.o. twice a day. 6. Folic acid 0.5 milligrams p.o. daily. 7. Robitussin 200 milligrams p.o. q.4 h needed for cough. 8. Lactulose 30 ml p.o. as needed for constipation. 9. Morphine sulfate 45 milligrams p.o. q. 8. 10. Zofran 4 milligrams IV q. 6 hours as needed for nausea. 11. Oxycodone 50 milligrams p.o. q. 4 h as needed for severe pain/ breakthrough pain. 12. Pantoprazole 40 milligrams p.o. daily. 13. Zoloft 50 milligrams p.o. daily. REVIEW OF SYSTEMS: Other than what is mentioned in the history of present illness, please note the patient has chills, sweats, difficulty breathing, cough, severe rib pain, back pain. He reports abdominal pain and decreased appetite. He reports constipation as well. PHYSICAL EXAMINATION: VITAL SIGNS: Temperature 98.8 degrees Fahrenheit, heart rate ranging between 105 and 120 beats per minute, blood pressure 82/62, O2 sats are 91% on 4 liters nasal cannula. GENERAL APPEARANCE: Fred is a young man. He is tall and cachectic-appearing. He is chronically ill-appearing. He is lying in bed and is in no acute distress. HEAD, EYES, EARS, NOSE, THROAT: Head is atraumatic and normocephalic. Conjunctivae are pale. The sclerae are anicteric. Extraocular muscles intact. Pupils equal, round and reactive to light and accommodation. ORAL EXAM: No pharyngeal erythema. NECK EXAM: No palpable cervical or supraclavicular lymphadenopathy. RESPIRATORY EXAM: Decreased air movement over the right lung with mostly upper airway sounds. The left lung he has prolonged expiratory phase but good air movement. CARDIOVASCULAR EXAM: Tachycardic. Regular, S1, S2. No obvious murmurs, rubs or gallops. ABDOMINAL EXAM: Thin belly. Soft. No obvious organ enlargement. No obvious tenderness. LOWER EXTREMITIES: No pretibial edema. No calf tenderness. MUSCULOSKELETAL: Generally decreased muscle mass and tone. DIGITAL DESIGNER: No focal sensory or motor deficits. LABORATORY FINDINGS: Blood work dated 01/14/2017: WBC count 21.8, hemoglobin 11.4 gm/dl, hematocrit is 34%, platelet count 327,000, absolute neutrophil count is 19.4. Chemistries: Sodium 134, potassium 3.7, chloride 96, bicarbonate 27, BUN 11, creatinine 0.62, EGFR is 149, lactic acid 2.5, calcium 9.2, magnesium 2.2. IMAGING STUDIES: CT angiography dated 01/14/2017: Indicates no evidence of pulmonary embolus. A large right upper lung cavity which is new compared to the CT scan done two weeks ago. Increased surrounding right upper lung consolidation, increased right middle lobe and lower lobar opacities representing endobronchial spread of infection. Paratracheal mediastinal lymphadenopathy is unchanged. ASSESSMENT: Mr. Cali is a 31-year-old man with metastatic adenocarcinoma of the lung. He was diagnosed in May of 2016. He is presently on palliative systemic chemotherapy with docetaxel / ramucirumab and has received, I believe, two or three cycles of this. He presented to the hospital with complaints of night sweats, chills and a cough, which started last night and progressed over the course of today. Imaging studies indicate progressive patchy pneumonia involving both lungs and what appears to be a cavitary lesion involving the right lung consistent with an abscess given the presence of the air-fluid level. Overall Mr. Cali has an ECOG performance status of about a 3 and it is increasingly becoming apparent that he is a poor candidate for additional disease-directed therapy and he may be candidate for hospice level of care going forward. RECOMMENDATIONS: 1. Metastatic adenocarcinoma of the lung: Systemic chemotherapy is on hold until he shows signs of sustained recovery. It is not clear whether he will ever be a suitable candidate for aggressive disease-directed therapy going forward. 2. Suspected abscess the right upper lobe of the lung: I have recommended changing his antibiotics from ceftriaxone to Zosyn 4.5 grams q.8 h to add on some anaerobic coverage. I have also requested a pulmonology consultation to determine if he may benefit from a bronchoscopy with possible endobronchial drainage of the of the abscess. 3. Pain control: Continuous outpatient regimen of long-acting morphine 45 milligrams p.o. q.8 h and morphine sulfate immediate release 15 milligrams p.o. q.4 h as needed for breakthrough pain. 4. I will also request evaluation by the palliative care team to discuss possible transition to hospice level of care. MD RAMONA Madrigal/DAVON /6:46 PM /7:17 PM
[2017-01-14] MEDS: DOCUSATE SODIUM 50 MG/SENNA 8.6 MG TAB PO SCH (20:50)
[2017-01-14] MEDS: APIXABAN 2.5 MG TABLET PO SCH (20:50)
[2017-01-14] MEDS: PIPERACIL-TAZO 4.5 GM PREMIX 100 ML IV SCH (20:51)
[2017-01-14] MEDS: SODIUM CHLORIDE 0.9% FLUSH 10 ML FLUSH IV FLUSH SCH (20:51)
[2017-01-15] VITALS: BP 103/64; PULSE 109; RESP 18; TEMP 98.3; O2SAT 93
[2017-01-15] MEDS: MORPHINE SULFATE 15 MG CONTROLLED RELEASE TAB PO SCH ×3 (02:09→17:52)
[2017-01-15] MEDS: SODIUM CHLOR 0.9% 1000 ML INJ 1,000 ML IV SCH ×3 (02:17→20:37)
[2017-01-15 04:00] VITALS: BP 106/63; PULSE 99; RESP 19; TEMP 98; O2SAT 95
[2017-01-15] MEDS: PIPERACIL-TAZO 4.5 GM PREMIX 100 ML IV SCH ×3 (05:17→20:34)
[2017-01-15 06:47] LABS: AUTOMATED NEUTROPHIL # 22.1 TH/MM3 (1.8-7.7); HEMATOCRIT 28.4 % (39.0-51.0); HEMO FLAGS DIFF FINAL; LYMPH % 1.7 % (9.0-44.0); LYMPHOCYTE # 0.4 TH/MM3 (1.0-4.8); MEAN CELL VOLUME 86.1 FL (80.0-100.0); MEAN CORPUSCULAR HEMOGLOBIN 28.2 PG (27.0-34.0); MEAN CORPUSCULAR HGB CONC 32.7 % (32.0-36.0); MONO % 4.4 % (0.0-8.0); NEUT % 93.9 % (16.0-70.0); PLATELET COUNT 284 TH/MM3 (150-450); RED CELL DISTRIBUTION WIDTH 19.2 % (11.6-17.2); WHITE BLOOD COUNT 23.6 TH/MM3 (4.0-11.0)
[2017-01-15 07:04] LABS: BICARBONATE 24.8 MEQ/L (21.0-32.0); POTASSIUM 4.1 MEQ/L (3.5-5.1)
[2017-01-15 08:00] VITALS: BP 95/57; PULSE 89; RESP 19; TEMP 98.2; O2SAT 93
[2017-01-15] MEDS: ALBUTEROL SULFATE 90 MCG/ACT HFA 18 GM INHALER INH SCH ×4 (08:32→20:32)
[2017-01-15] MEDS: FOLIC ACID 1 MG TAB PO SCH (08:35)
[2017-01-15] MEDS: SERTRALINE HCL 50 MG TAB PO SCH (08:35)
[2017-01-15] MEDS: DOCUSATE SODIUM 50 MG/SENNA 8.6 MG TAB PO SCH ×2 (08:35→20:31)
[2017-01-15] MEDS: APIXABAN 2.5 MG TABLET PO SCH ×2 (08:35→20:30)
[2017-01-15] MEDS: PANTOPRAZOLE SOD 40 MG DELAYED RELEASE TAB PO SCH (08:35)
[2017-01-15] MEDS: SODIUM CHLORIDE 0.9% FLUSH 10 ML FLUSH IV FLUSH SCH ×2 (08:39→20:32)
[2017-01-15 09:38] VITALS: O2SAT 94
--- NOTE | 2017-01-15 10:01 | HHI.PR ---
Subjective Remarks remains tachy no chills has been coughing, unable to bring up secretions right chest wall pain eating okay no n/v no fever Objective Objective Results - Vital Signs Date Time Temp Pulse Resp B/P Pulse Ox O2 Delivery O2 Flow Rate FiO2 01/15/17 09:38 94 Nasal Cannula 3.00 01/15/17 08:00 98.2 89 19 95/57 93 01/15/17 04:00 98.0 99 19 106/63 95 01/15/17 00:00 98.3 109 18 103/64 93 01/14/17 23:00 104 01/14/17 20:00 99.7 105 19 97/61 91 01/14/17 18:09 105 01/14/17 17:00 98.8 112 18 98/62 91 01/14/17 15:00 93 Nasal Cannula 4.00 01/14/17 15:00 114 16 97/56 93 Nasal Cannula 4 01/14/17 13:00 120 16 120/77 95 Nasal Cannula 4 01/14/17 12:12 100 Aerosol Mask 15 01/14/17 12:12 18 100 Aerosol Mask 01/14/17 12:00 114 20 114/78 100 Aerosol Mask 15 01/14/17 11:23 92 Nasal Cannula 2 01/14/17 10:47 97.7 120 24 111/79 89 Room Air I/O 01/14/17 01/14/17 01/14/17 01/15/17 01/15/17 01/15/17 07:00 15:00 23:00 07:00 15:00 23:00 Intake Total 1280 ml 1040 ml Output Total 550 ml Balance 1280 ml 490 ml Intake Oral 480 ml 240 ml IV Total 800 ml 800 ml Output Urine Total 550 ml Result Diagram: 01/15/17 0627 01/15/17 0627 Imaging Last Impressions Chest X-Ray 01/14/17 1125 Signed Impressions: Service Date/Time: Saturday, January 14, 2017 11:53 - CONCLUSION: Cavitary area in the right upper lung again seen with adjacent consolidation. New patchy right lung base opacity. Saurabh Reese MD CT Angiography 01/14/17 0000 Signed Impressions: Service Date/Time: Saturday, January 14, 2017 13:43 - CONCLUSION: 1. No evidence of pulmonary embolus. 2. Large right upper lung cavity new when compared to prior CT. This finding is seen on prior chest x-ray. 3. Increased surrounding right upper lung consolidation. Increased right middle lobe and lower lobe centrilobular opacities may represent endobronchial spread of infection. 4. Paratracheal mediastinal mass unchanged. Left posterior chest wall mass unchanged. 5. Patchy left lung opacity again noted. 6. Small bilateral pleural effusions. Saurabh Reese MD Other Results Laboratory Tests Test 01/14/17 01/14/17 01/15/17 12:00 20:50 06:27 White Blood Count 21.8 23.6 Red Blood Count 3.91 3.30 Hemoglobin 11.4 9.3 Hematocrit 33.9 28.4 Mean Corpuscular Volume 86.8 86.1 Mean Corpuscular Hemoglobin 29.3 28.2 Mean Corpuscular Hemoglobin 33.7 32.7 Concent Red Cell Distribution Width 19.6 19.2 Platelet Count 327 284 Mean Platelet Volume 8.2 7.6 Neutrophils (%) (Auto) 90.2 93.9 Lymphocytes (%) (Auto) 2.5 1.7 Monocytes (%) (Auto) 7.2 4.4 Eosinophils (%) (Auto) 0.0 0.0 Basophils (%) (Auto) 0.1 0.0 Neutrophils # (Auto) 19.6 22.1 Lymphocytes # (Auto) 0.5 0.4 Monocytes # (Auto) 1.6 1.0 Eosinophils # (Auto) 0.0 0.0 Basophils # (Auto) 0.0 0.0 CBC Comment AUTO DIFF DIFF FINAL Differential Total Cells 100 Counted Neutrophils % (Manual) 76 Band Neutrophils % 13 Lymphocytes % 3 Monocytes % 8 Neutrophils # (Manual) 19.4 Differential Comment FINAL DIFF MANUAL Toxic Granulation 1+ Platelet Estimate NORMAL Platelet Morphology Comment NORMAL Prothrombin Time 12.3 Prothromb Time International 1.1 Ratio Activated Partial 38.8 Thromboplast Time Sodium Level 134 133 Potassium Level 3.7 4.1 Chloride Level 96 100 Carbon Dioxide Level 27.2 24.8 Anion Gap 11 8 Blood Urea Nitrogen 11 9 Creatinine 0.62 0.42 Estimat Glomerular Filtration 149 234 Rate Random Glucose 68 72 Lactic Acid Level 2.5 1.1 1.1 Calcium Level 9.2 7.8 Magnesium Level 2.2 Total Creatine Kinase 22 Troponin I LESS THAN 0.02 Date/Time Procedure Status Source Growth 01/14/17 13:12 Aerobic Blood Culture Received Blood Peripheral Pending 01/14/17 13:12 Anaerobic Blood Culture Received Blood Peripheral Pending ROS General: No: Fatigue, Weakness HEENT: No: Sore Throat, Dysphagia Cardiac: Chest Pain, No: Edema, Palpitations, Other Pulmonary: Cough, SOB, Wheezing GI: No: Abdominal Pain, BM, Diarrhea, N/V /GERIATRIC PHYSICIAN: No: Dysuria, Urgency Neuro/MS: No: Lightheaded, Confusion Psych: No: Anxiety, Depression Skin: No: Itching, Rash Physical Exam Physical Exam GENERAL: Thin built, chronically ill-appearing male. SKIN: No rashes, ecchymoses or lesions. Cool and dry. HEAD: Atraumatic. Normocephalic. No temporal or scalp tenderness. EYES: Pupils equal round and reactive. Extraocular motions intact. No scleral icterus. No injection or drainage. ENT: Nose without bleeding, purulent drainage or septal hematoma. Throat without erythema, tonsillar hypertrophy or exudate. Uvula midline. Airway patent. NECK: Trachea midline. No JVD or lymphadenopathy. Supple, nontender, no meningeal signs. CARDIOVASCULAR: Regular rate and rhythm without murmurs, gallops, or rubs. RESPIRATORY: Rhonchi to right lower base. GASTROINTESTINAL: Abdomen soft, non-tender, nondistended. No hepato-splenomegaly , or palpable masses. No guarding. MUSCULOSKELETAL: Extremities without clubbing, cyanosis, or edema. No joint tenderness, effusion, or edema noted. No calf tenderness. Negative Homans sign bilaterally. NEUROLOGICAL: Awake and alert. Cranial nerves II through XII intact. Motor and sensory grossly within normal limits. Five out of 5 muscle strength in all muscle groups. Normal speech. 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 Presented to the emergency room with increased cough, subjective fever, sputum, shortness of breath, chest pain. Chest x-ray completed showing possible new right lower lobe infiltrate. Elevated lactic acid with leukocytosis and tachycardia. Sepsis, possibly secondary to infectious process, pneumonia-right lower lobe infiltrate remains with significant leukocytosis and tachycardic. -Continue with normal saline at 100 an hour -lactic acid 1.1 -Continue with empiric antibiotics and follow cultures. Continue with supplemental oxygen at 2 L to keep sats greater than 92% Proventil inhaler 4 times a day Robitussin when necessary -Add Mucinex 600 mg po bid -pulmonology consult pending, Dr. Hood concerned that pt. poss has abscess and may need bronch or drainage. -Sputum culture pending Right lung adenocarcinoma with metastasis. Chemotherapy [address] Hood has been consulted, input appreciated. Consulted pulm and palliative care. Pt. with poss abscess. SVC syndrome, on Eliquis -Continue Eliquis Depression and anxiety Continue Zoloft. Chronic pain continue pain med regimen Continue with Eliquis for DVT prophylaxis Protonix for GI prophylaxis Patient's condition guarded. Repeat labs in am D/W RN D/W Dr. Velazquez D/W pt. This patient was seen by myself and Dr. Velazquez, this note is written on her behalf Problem Qualifiers (1) Sepsis: Qualified Code: A41.9 - Sepsis, due to unspecified organism (2) Pneumonia: Qualified Code: J18.1 - Pneumonia of right lower lobe due to infectious organism (3) Metastatic lung cancer (metastasis from lung to other site): Qualified Code: C34.91 - Metastatic lung cancer (metastasis from lung to other site), right (4) Chronic pain: Qualified Code: G89.3 - Chronic pain due to neoplasm Dariela Michaels Jan 15, 2017 10:01
--- NOTE | 2017-01-15 11:19 | EKG ---
Date Performed: 01/14/2017 Time Performed: 13:09:47 PTAGE: 31 years EKG: SINUS TACHYCARDIA NONSPECIFIC ST & T-WAVE ABNORMALITY ABNORMAL RHYTHM ECG Compared to prior tracing no significant change PREVIOUS TRACING : 12/26/2016 15.10 DOCTOR: Bang Bush Interpretating Date/Time 01/15/2017 11:17:00
--- NOTE | 2017-01-15 11:23 | PD.CONS ---
Consult Service Palliative Care Consult Requested By Dr. Hood . Primary Care Physician Cam Palacios MD . Reason for Consultation a. To assist with evaluation and management of symptoms including: Pain, dyspnea b. To assist medical decision maker(s) with: better understanding of current medical conditions; weighing benefits/burdens of medical treatment options; making medical treatment decisions. . HPI History of Present Illness This 31-year-old male, with known widely metastatic adenocarcinoma of lung, is admitted to the hospital again for dyspnea and pain. The patient initially presented to this hospital on 05/18/16 because of weight loss of 12 pounds and some progressive dyspnea. A CT scan revealed a 3 cm spiculated mass in the right lung apex, and 9 cm of mass (adenopathy) in the mediastinum compressing the SVC. Biopsy revealed non-small cell lung cancer, and the patient was treated with carboplatin and Taxol in addition to radiation therapy. He had a reaction to Taxol and that was changed to Abraxane. By early 2016, the patient was found to now have metastatic disease to bone including ribs and spine, and also to intra-abdominal organs. His treatment was changed to docetaxel and ramucirumab, and he had some additional radiation to the frontal bone. In November 2016, the patient was admitted with a spontaneous pneumothorax which resolved. He continued to decline and had additional weight loss. His most recent chemotherapy was on 12/28/16 (and he left the next day on "his final cruise"), and he was then admitted on 01/05/17 because of neutropenia and persistent nausea and vomiting, as well as worsening chest wall pain. He was able to return home within a few days, but now has come back to the hospital on 01/14/17 because of worsening shortness of breath. He continues to have some chest wall pain and is feeling weaker, more fatigue. After presentation to the emergency department, findings included: * Mild dyspnea at rest, cachexia * Temp 97.7, pulse 120, respirations 24, blood pressure 111/79, oxygen saturation 89% on room air * White count 21.8, hemoglobin 11.4 * Sodium 134, creatinine 0.62 * Chest x-ray with a cavitary lesion in the right upper chest * CT angiography revealed no evidence of PE, but a cavity in the right upper lung and evidence of infection in other parts of the right lung. The patient was admitted and begun on antibiotics. The patient's oncologist has noted that he has declined enough so that further aggressive treatment/ chemotherapy would likely not be of benefit. Palliative Care was consulted to assist with symptom management, and to enter into discussions with the patient and his family regarding the current situation, the prognosis, and the benefits and burdens of the various options now. . Function/Cognitive Trajectory The patient was weaker, but was still able to ambulate with a walker the past couple weeks, and he was still driving a car a week or 2 ago. He has not had confusion. . Review of Systems Constitutional: COMPLAINS OF: Fatigue, Fever, Weight loss Endocrine: DENIES: Polyuria Eyes: DENIES: Eye inflammation Ears, nose, mouth, throat: DENIES: Epistaxis Respiratory: COMPLAINS OF: Sputum production, Shortness of breath, DENIES: Hemoptysis Cardiovascular: COMPLAINS OF: Chest pain (chest wall), Dyspnea on Exertion, DENIES: Syncope Gastrointestinal: COMPLAINS OF: Constipation (intermittent), Nausea (last week) , Vomiting (last week), DENIES: Bloody stools, Diarrhea Genitourinary: DENIES: Hematuria Musculoskeletal: COMPLAINS OF: Back pain (attributed to spine metastases), DENIES: Neck pain Integumentary: DENIES: Rash, Nodules Hematologic/Lymphatics: DENIES: Bruising Immunologic/Allergic: DENIES: Urticaria Neurologic: DENIES: Headache, Localized weakness, Seizures Psychiatric: COMPLAINS OF: Anxiety, Depression, DENIES: Confusion, Hallucinations, Agitation Past Family Social History Coded Allergies: No Known Allergies (Verified , 01/14/17) Past Medical History * Widely metastatic adenocarcinoma of the lung * Right lung abscess * Spontaneous pneumothorax November 2016 * 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 Past Surgical History * TECHNICAL WRITER AND EDITOR shunt as an , revised age 7 * Pilonidal cyst * Biopsy of mediastinal adenopathy 2015 * [id number] July 2016 * Radial shortening years ago . Reported Medications Morphine ER (Morphine Sulfate) 15 Mg Tab 45 Mg PO Q8H Zofran (Ondansetron HCl) 4 Mg Tab 4 Mg PO Q6HR PRN Magic Mouthwash Adult Liq (Multi-Ingredient Mouthwash/Gargle) 120 Ml Susp 5 Ml SWISH-SWAL QID PRN Sertraline (Sertraline HCl) 50 Mg Tab 50 Mg PO DAILY Ambien (Zolpidem Tartrate) 5 Mg Tab 5 Mg PO HS PRN Folic Acid 400 Mcg Tab 400 Mcg PO DAILY Oxycodone (Oxycodone HCl) 5 Mg Cap 15 Mg PO Q4H PRN Protonix (Pantoprazole Sodium) 40 Mg Tab 40 Mg PO DAILY Eliquis (Apixaban) 2.5 Mg Tab 2.5 Mg PO BID Ventolin Hfa 18 GM Inh (Albuterol Sulfate) 90 Mcg/Act Aer 2 Puff INH QID . Current Medications Medications (Trade) Dose Ordered Sig/Ruma Route Start Time Stop Time Status Last Admin (NS 1000 ml Inj) 1,000 ml @ 100 mls/hr Q10H IV 01/14/17 14:42 01/15/17 02:17 (NS Flush) 2 ml UNSCH PRN IV FLUSH 01/14/17 14:45 (NS Flush) 2 ml BID IV FLUSH 01/14/17 21:00 (Tylenol) 650 mg Q4H PRN PO 01/14/17 14:45 (Zofran Inj) 4 mg Q6H PRN IVP 01/14/17 14:45 (Narcan Inj) 0.4 mg UNSCH PRN IV 01/14/17 14:45 (Fátima-Colace) 1 tab BID PO 01/14/17 21:00 01/15/17 08:35 Lactulose 30 ml 30 ml DAILY PRN PO 01/14/17 14:45 (Zithromax Inj/ NS 250 ml Inj) 250 ml @ 250 mls/hr Q24H IV 01/14/17 17:00 01/14/17 18:19 (Ventolin Hfa Inh) 2 puff QID INH 01/14/17 18:00 01/15/17 08:32 (Eliquis) 2.5 mg BID PO 01/14/17 21:00 01/15/17 08:35 (Folate) 0.5 mg DAILY PO 01/15/17 09:00 01/15/17 08:35 (Oramorph Sr) 45 mg Q8H PO 01/14/17 18:00 01/15/17 09:06 (Roxicodone) 15 mg Q4H PRN PO 01/14/17 17:00 01/15/17 05:17 (Protonix) 40 mg DAILY PO 01/15/17 09:00 01/15/17 08:35 (Zoloft) 50 mg DAILY PO 01/15/17 09:00 01/15/17 08:35 Guaifenesin 200 mg 200 mg Q4H PRN PO 01/14/17 17:00 (Zosyn 4.5 Gm Premix) 100 ml @ 200 mls/hr Q8H IV 01/14/17 21:00 01/15/17 05:17 (Mucinex Er) 600 mg BID PO 01/15/17 10:00 Family History The patient's paternal grandmother of pancreatic cancer, and paternal grandfather of lung cancer. Maternal grandmother had breast cancer. Patient's mother and father are both alive and well, and his 31-year-old sister is alive and well. . Substance Use Tobacco: Smoked until he quit about a year ago. Alcohol: None Prescription med abuse: None Illicits: None . Psychosocial History The patient was born here in [place], lived in [place] for about 10 years, but moved back here again in 2000. He lived on his own until October of this year when he moved in with his mother and stepfather. 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 He has never been , does not have a significant other at this time, and has had no children. . Spiritual/Cultural Factors The patient reports he is not spiritual or denominational. . Health Care Surrogate: Copy in medical record (as part of [facility]) Health Care Surrogate(s): Patient's mother, Caity Hope . Documented care wishes: In the 5 wishes, the patient is said he does not want to be resuscitated or kept on life support if he is end-stage. His mother is named as HCS. . Today's verbally stated goals: The patient confirms DNR status, acknowledges that there is no further aggressive care that is likely to be beneficial, and requests a hospice consult. The patient did meet with hospice a week or 2 ago at home, and thus has some understanding of their services. . Family/friends goals: The patient's mother and stepfather concur with the patient's wishes. . Ethical and Legal Issues There are no ethical issues that would impact his care or decision-making at this time. The patient has capacity for decision-making at this time. The patient has designated his mother, Caity Hope, as his healthcare surrogate. Physical Exam Vital Signs Date Time Temp Pulse Resp B/P Pulse Ox O2 Delivery O2 Flow Rate FiO2 01/15/17 09:38 94 Nasal Cannula 3.00 01/15/17 08:00 98.2 89 19 95/57 93 01/15/17 04:00 98.0 99 19 106/63 95 01/15/17 00:00 98.3 109 18 103/64 93 01/14/17 23:00 104 01/14/17 20:00 99.7 105 19 97/61 91 01/14/17 18:09 105 01/14/17 17:00 98.8 112 18 98/62 91 01/14/17 15:00 93 Nasal Cannula 4.00 01/14/17 15:00 114 16 97/56 93 Nasal Cannula 4 01/14/17 13:00 120 16 120/77 95 Nasal Cannula 4 01/14/17 12:12 100 Aerosol Mask 15 01/14/17 12:12 18 100 Aerosol Mask 01/14/17 12:00 114 20 114/78 100 Aerosol Mask 15 01/14/17 11:23 92 Nasal Cannula 2 01/14/17 01/15/17 18:59 06:59 Intake Total 2320 ml Output Total 550 ml Balance 1770 ml Intake Oral 720 ml IV Total 1600 ml Output Urine Total 550 ml Exam CONSTITUTIONAL/GENERAL: This is a somewhat cachectic patient, in no apparent distress. TUBES/LINES/DRAINS: Nasal cannula oxygen, peripheral IV SKIN: No jaundice, rashes, or lesions. No wounds seen anteriorly. Skin temperature appropriate. Not diaphoretic. HEAD: Atraumatic. Normocephalic. EYES: Pupils equal and round and reactive. Extraocular motions intact. No scleral icterus. No injection or drainage. Fundi not examined. ENT: Hearing grossly normal. Nose without bleeding or purulent drainage. Throat without visible erythema, exudates, masses, or lesions. NECK: Trachea midline. Supple, nontender. No palpable thyroid enlargement or nodularity. CARDIOVASCULAR: Regular rate and rhythm without murmurs, gallops, or rubs. No JVD. Peripheral pulses symmetric. RESPIRATORY/CHEST: Symmetric, unlabored respirations. Scattered rhonchi, diminished breath sounds right greater than left GASTROINTESTINAL: Abdomen soft, non-tender, nondistended. No hepato-splenomegaly , or palpable masses. No guarding. Bowel sounds present. GENITOURINARY: Without palpable bladder distension. MUSCULOSKELETAL: Extremities without clubbing, cyanosis, or edema. No joint tenderness or effusion noted. No calf tenderness. No mottling or clubbing. LYMPHATICS: No palpable cervical or supraclavicular adenopathy. NEUROLOGICAL: Awake and alert. Motor and sensory grossly within normal limits. Follows commands. Cognitively sharp. Moves all extremities. PSYCHIATRIC: No obvious anxiety/depression. no apparent hallucinations or other psychotic thought process. . Diagnostic Tests Laboratory Laboratory Tests Test 01/14/17 01/14/17 01/15/17 12:00 20:50 06:27 White Blood Count 21.8 TH/MM3 23.6 TH/MM3 (4.0-11.0) (4.0-11.0) Red Blood Count 3.91 MIL/MM3 3.30 MIL/MM3 (4.50-5.90) (4.50-5.90) Hemoglobin 11.4 GM/DL 9.3 GM/DL (13.0-17.0) (13.0-17.0) Hematocrit 33.9 % 28.4 % (39.0-51.0) (39.0-51.0) Mean Corpuscular Volume 86.8 FL 86.1 FL (80.0-100.0) (80.0-100.0) Mean Corpuscular Hemoglobin 29.3 PG 28.2 PG (27.0-34.0) (27.0-34.0) Mean Corpuscular Hemoglobin 33.7 % 32.7 % Concent (32.0-36.0) (32.0-36.0) Red Cell Distribution Width 19.6 % 19.2 % (11.6-17.2) (11.6-17.2) Platelet Count 327 TH/MM3 284 TH/MM3 (150-450) (150-450) Mean Platelet Volume 8.2 FL 7.6 FL (7.0-11.0) (7.0-11.0) Neutrophils (%) (Auto) 90.2 % 93.9 % (16.0-70.0) (16.0-70.0) Lymphocytes (%) (Auto) 2.5 % 1.7 % (9.0-44.0) (9.0-44.0) Monocytes (%) (Auto) 7.2 % (0.0-8.0) 4.4 % (0.0-8.0) Eosinophils (%) (Auto) 0.0 % (0.0-4.0) 0.0 % (0.0-4.0) Basophils (%) (Auto) 0.1 % (0.0-2.0) 0.0 % (0.0-2.0) Neutrophils # (Auto) 19.6 TH/MM3 22.1 TH/MM3 (1.8-7.7) (1.8-7.7) Lymphocytes # (Auto) 0.5 TH/MM3 0.4 TH/MM3 (1.0-4.8) (1.0-4.8) Monocytes # (Auto) 1.6 TH/MM3 1.0 TH/MM3 (0-0.9) (0-0.9) Eosinophils # (Auto) 0.0 TH/MM3 0.0 TH/MM3 (0-0.4) (0-0.4) Basophils # (Auto) 0.0 TH/MM3 0.0 TH/MM3 (0-0.2) (0-0.2) CBC Comment AUTO DIFF DIFF FINAL Differential Total Cells 100 Counted Neutrophils % (Manual) 76 % (16-70) Band Neutrophils % 13 % (0-6) Lymphocytes % 3 % (9-44) Monocytes % 8 % (0-8) Neutrophils # (Manual) 19.4 TH/MM3 (1.8-7.7) Differential Comment FINAL DIFF MANUAL Toxic Granulation 1+ (NORMAL) Platelet Estimate NORMAL (NORMAL) Platelet Morphology Comment NORMAL (NORMAL) Prothrombin Time 12.3 SEC (9.8-11.6) Prothromb Time International 1.1 RATIO Ratio Activated Partial 38.8 SEC Thromboplast Time (24.3-30.1) Sodium Level 134 MEQ/L 133 MEQ/L (136-145) (136-145) Potassium Level 3.7 MEQ/L 4.1 MEQ/L (3.5-5.1) (3.5-5.1) Chloride Level 96 MEQ/L 100 MEQ/L (98-107) (98-107) Carbon Dioxide Level 27.2 MEQ/L 24.8 MEQ/L (21.0-32.0) (21.0-32.0) Anion Gap 11 MEQ/L (5-15) 8 MEQ/L (5-15) Blood Urea Nitrogen 11 MG/DL (7-18) 9 MG/DL (7-18) Creatinine 0.62 MG/DL 0.42 MG/DL (0.60-1.30) (0.60-1.30) Estimat Glomerular Filtration 149 ML/MIN 234 ML/MIN Rate (>89) (>89) Random Glucose 68 MG/DL 72 MG/DL (74-106) (74-106) Lactic Acid Level 2.5 mmol/L 1.1 mmol/L 1.1 mmol/L (0.4-2.0) (0.4-2.0) (0.4-2.0) Calcium Level 9.2 MG/DL 7.8 MG/DL (8.5-10.1) (8.5-10.1) Magnesium Level 2.2 MG/DL (1.5-2.5) Total Creatine Kinase 22 U/L (39-308) Troponin I LESS THAN 0.02 NG/ML (0.02-0.05) Result Diagram: 01/15/17 0627 01/15/17 0627 Microbiology Microbiology Date/Time Procedure Status Source Growth 01/14/17 13:05 Aerobic Blood Culture Received Blood Peripheral Pending 01/14/17 13:05 Anaerobic Blood Culture Received Blood Peripheral Pending 01/14/17 13:12 Aerobic Blood Culture Received Blood Peripheral Pending 01/14/17 13:12 Anaerobic Blood Culture Received Blood Peripheral Pending Imaging Last Impressions Chest X-Ray 01/14/17 1125 Signed Impressions: Service Date/Time: Saturday, January 14, 2017 11:53 - CONCLUSION: Cavitary area in the right upper lung again seen with adjacent consolidation. New patchy right lung base opacity. Saurabh Reese MD CT Angiography 01/14/17 0000 Signed Impressions: Service Date/Time: Saturday, January 14, 2017 13:43 - CONCLUSION: 1. No evidence of pulmonary embolus. 2. Large right upper lung cavity new when compared to prior CT. This finding is seen on prior chest x-ray. 3. Increased surrounding right upper lung consolidation. Increased right middle lobe and lower lobe centrilobular opacities may represent endobronchial spread of infection. 4. Paratracheal mediastinal mass unchanged. Left posterior chest wall mass unchanged. 5. Patchy left lung opacity again noted. 6. Small bilateral pleural effusions. Saurabh Reese MD Patient/Family Conference Present at Family Conference: Patient's mother and stepfather . Family Conference Time (mins): 46 Family Conference Location: Bedside Issues Discussed: * Palliative care role, purpose, approach * Hospice care role, purpose, approach * Additional medical, psychosocial, and spiritual history * Patients general health, functional status, and cognitive changes in the months leading up to the current hospitalization * Patient/family understanding of the current medical problems * Patient/family understanding of prognosis * Patients goals of care as best understood from advance directives and/or conversations and/or values * Current medical treatment options and benefits/burdens of those options * Likely scenarios comparing ongoing aggressive care with a transition to comfort measures only * Questions answered to the best of my ability * Palliative care contact information provided The patient confirms DNR status, acknowledges that there is no further aggressive care that is likely to be beneficial, and requests a hospice consult. The patient did meet with hospice a week or 2 ago at home, and thus has some understanding of their services. . 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 The patient has designated his mother, Caity Hope, as his healthcare surrogate. Ethical issues impacting care: None . Important Contacts Mother and HCS: Caity Hope [phone] . Prognosis This patient is terminal, likely with just weeks to live; he is appropriate for hospice services. . Code Status: No Code Plan * DO NOT RESUSCITATE * GOALS: The patient confirms DNR status, acknowledges that there is no further aggressive care that is likely to be beneficial, and requests a hospice consult. The patient did meet with hospice a week or 2 ago at home, and thus has some understanding of their services. * DECISION-MAKING: The patient has capacity for decision-making at this time. The patient has designated his mother, Caity Hope, as his healthcare surrogate. * SYMPTOMS: The patient's pain has been improved on the long-acting morphine, but he still does have some underlying fairly constant pain. His dyspnea is improved while on supplemental oxygen and at rest, but he has significant dyspnea with minimal exertion. His anxiety is mild at this time. Further medication recommendations will be deferred to hospice personnel. * Hospice consult placed. * Palliative Care will continue to follow the patient during this hospitalization. . Time Spent Total Floor Time (mins): 79 Face to Face Time (mins): 56 >50% Counseling/Coord of Care: Yes Thank you for the opportunity to participate in the care of Mr. Cali. Attestation To help prompt me to consider important information that might be impacting today's encounter and assessment, information from prior notes written by myself or my colleagues may have been "brought forward" into today's note. My signature on this note, however, is an attestation that I personally performed the exam, history, and/or decision-making noted today, and, unless otherwise indicated, the interactions with patient, family, and staff as well as the review of records all occurred today. I also attest that the listed assessment and stated plan reflect my best clinical judgment today based on the combination of historical information, prior notes, and today's exam/ interactions. When time spent is documented, it refers only to time spent today by the signer, or if indicated, combined time spent today by collaborating physician/nurse practitioner. aCrli Odonnell MD Jan 15, 2017 11:23
[2017-01-15] MEDS: guaiFENesin E.R. 600 MG TAB PO SCH ×2 (11:53→20:31)
[2017-01-15 12:53] VITALS: BP_SYST 135; BP_SYST 98; BP_DIAS 66; BP_DIAS 79; PULSE 67; PULSE 90; RESP 19; RESP 20; TEMP 97.1; TEMP 97.4; O2SAT 95
[2017-01-15] MEDS: AZITHROMYCIN INJ 500 MG in SODIUM CHLOR 0.9% 250 ML INJ 250 ML IV SCH (15:57)
[2017-01-15 20:00] VITALS: BP 107/68; PULSE 100; RESP 18; TEMP 99.8; O2SAT 92
[2017-01-15] MEDS ORDERED: ZOLPIDEM TARTRATE 5 MG TAB PO ONE (22:00)
[2017-01-16] VITALS: BP 104/57; PULSE 80; RESP 16; TEMP 98.8; O2SAT 95
[2017-01-16] MEDS: MORPHINE SULFATE 15 MG CONTROLLED RELEASE TAB PO SCH ×2 (02:11→11:27)
[2017-01-16 04:00] VITALS: BP 104/68; PULSE 95; RESP 18; TEMP 98; O2SAT 93
[2017-01-16] MEDS: PIPERACIL-TAZO 4.5 GM PREMIX 100 ML IV SCH (04:29)
[2017-01-16 07:05] LABS: AUTOMATED NEUTROPHIL # 13.7 TH/MM3 (1.8-7.7); BASOPHIL % 0.1 % (0.0-2.0); EOSINOPHIL % 0.1 % (0.0-4.0); HEMATOCRIT 27.8 % (39.0-51.0); HEMO FLAGS DIFF FINAL; LYMPHOCYTE # 0.3 TH/MM3 (1.0-4.8); MEAN CELL VOLUME 86.5 FL (80.0-100.0); MEAN CORPUSCULAR HGB CONC 32.4 % (32.0-36.0); MONO % 6.5 % (0.0-8.0); NEUT % 91.3 % (16.0-70.0); PLATELET COUNT 294 TH/MM3 (150-450); RED BLOOD COUNT 3.22 MIL/MM3 (4.50-5.90); RED CELL DISTRIBUTION WIDTH 19.5 % (11.6-17.2)
--- NOTE | 2017-01-16 07:58 | PD.ONC.PN ---
Subjective Subjective Remarks Fred tells me he is more comfortable today, he has not had a fever, continues to have some right-sided chest pain. Left-sided chest pain has completely resolved after the nerve block he had 2 weeks ago. He tells me he will be transferred to hospice care Center later today. Objective Data Date Time Temp Pulse Resp B/P Pulse Ox O2 Delivery O2 Flow Rate FiO2 01/16/17 04:00 98.0 95 18 104/68 93 01/16/17 00:00 98.8 80 16 104/57 95 01/15/17 21:17 Nasal Cannula 3.00 01/15/17 20:00 99.8 100 18 107/68 92 01/15/17 12:53 97.4 90 19 98/66 95 01/15/17 09:38 94 Nasal Cannula 3.00 01/15/17 08:00 98.2 89 19 95/57 93 01/16/17 01/16/17 01/16/17 07:00 15:00 23:00 Intake Total 1200 ml Balance 1200 ml Result Diagram: 01/16/17 0641 01/15/17 0627 Laboratory Results Laboratory Tests Test 01/16/17 06:41 White Blood Count 15.0 TH/MM3 Red Blood Count 3.22 MIL/MM3 Hemoglobin 9.0 GM/DL Hematocrit 27.8 % Mean Corpuscular Volume 86.5 FL Mean Corpuscular Hemoglobin 28.0 PG Mean Corpuscular Hemoglobin 32.4 % Concent Red Cell Distribution Width 19.5 % Platelet Count 294 TH/MM3 Mean Platelet Volume 7.4 FL Neutrophils (%) (Auto) 91.3 % Lymphocytes (%) (Auto) 2.0 % Monocytes (%) (Auto) 6.5 % Eosinophils (%) (Auto) 0.1 % Basophils (%) (Auto) 0.1 % Neutrophils # (Auto) 13.7 TH/MM3 Lymphocytes # (Auto) 0.3 TH/MM3 Monocytes # (Auto) 1.0 TH/MM3 Eosinophils # (Auto) 0.0 TH/MM3 Basophils # (Auto) 0.0 TH/MM3 CBC Comment DIFF FINAL Differential Comment Culture Results Microbiology Date/Time Procedure Status Source Growth 01/14/17 13:05 Aerobic Blood Culture - Preliminary Resulted Blood Peripheral NO GROWTH IN 1 DAY 01/14/17 13:05 Anaerobic Blood Culture - Preliminary Resulted Blood Peripheral NO GROWTH IN 1 DAY 01/14/17 13:12 Aerobic Blood Culture - Preliminary Resulted Blood Peripheral NO GROWTH IN 1 DAY 01/14/17 13:12 Anaerobic Blood Culture - Preliminary Resulted Blood Peripheral NO GROWTH IN 1 DAY Administered Medications Medications (Trade) Dose Ordered Sig/Ruma Route PRN Reason Start Time Stop Time Status Last Admin Dose Admin Sodium Chloride (NS 1000 ml Inj) 1,000 ml @ 100 mls/hr Q10H IV 01/14/17 14:42 01/15/17 20:37 Senna/Docusate Sodium 1 tab 1 tab BID PO 01/14/17 21:00 01/15/17 08:35 Azithromycin/ Sodium Chloride (Zithromax Inj/ NS 250 ml Inj) 250 ml @ 250 mls/hr Q24H IV 01/14/17 17:00 01/15/17 15:57 Albuterol Sulfate (Ventolin Hfa Inh) 2 puff QID INH 01/14/17 18:00 01/15/17 20:32 Apixaban (Eliquis) 2.5 mg BID PO 01/14/17 21:00 01/15/17 20:30 Folic Acid (Folate) 0.5 mg DAILY PO 01/15/17 09:00 01/15/17 08:35 Morphine Sulfate (Oramorph Sr) 45 mg Q8H PO 01/14/17 18:00 01/16/17 02:11 Oxycodone HCl (Roxicodone) 15 mg Q4H PRN PO PAIN 1-10 01/14/17 17:00 01/16/17 04:30 Pantoprazole Sodium (Protonix) 40 mg DAILY PO 01/15/17 09:00 01/15/17 08:35 Sertraline HCl 50 mg 50 mg DAILY PO 01/15/17 09:00 01/15/17 08:35 Piperacillin Sod/ Tazobactam Sod (Zosyn 4.5 Gm Premix) 100 ml @ 200 mls/hr Q8H IV 01/14/17 21:00 01/16/17 04:29 Guaifenesin (Mucinex Er) 600 mg BID PO 01/15/17 10:00 01/15/17 20:31 Objective Remarks GENERAL APPEARANCE: Fred is a young man. He is tall and cachectic-appearing. He is chronically ill-appearing. He is lying in bed and is in no acute distress. HEAD, EYES, EARS, NOSE, THROAT: Head is atraumatic and normocephalic. Conjunctivae are pale. The sclerae are anicteric. Extraocular muscles intact. Pupils equal, round and reactive to light and accommodation. ORAL EXAM: No pharyngeal erythema. NECK EXAM: No palpable cervical or supraclavicular lymphadenopathy. RESPIRATORY EXAM: Decreased air movement over the right lung with mostly upper airway sounds. The left lung he has prolonged expiratory phase but good air movement. CARDIOVASCULAR EXAM: Tachycardic. Regular, S1, S2. No obvious murmurs, rubs or gallops. ABDOMINAL EXAM: Thin belly. Soft. No obvious organ enlargement. No obvious tenderness. LOWER EXTREMITIES: No pretibial edema. No calf tenderness. MUSCULOSKELETAL: Generally decreased muscle mass and tone. 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 Assessment/Plan Assessment Mr. Cali is a 31-year-old man with metastatic adenocarcinoma of the lung. He was diagnosed in May of 2016. He is presently on palliative systemic chemotherapy with docetaxel / ramucirumab and has received, I believe, two or three cycles of this. He presented to the hospital with complaints of night sweats, chills and a cough, which started last night and progressed over the course of today. Imaging studies indicate progressive patchy pneumonia involving both lungs and what appears to be a cavitary lesion involving the right lung consistent with an abscess given the presence of the air-fluid level. Overall Mr. Cali has an ECOG performance status of about a 3 and it is increasingly becoming apparent that he is a poor candidate for additional disease-directed therapy and he may be candidate for hospice level of care going forward. Plan 1. Metastatic adenocarcinoma of the lung: Poor candidate for additional disease directed systemic therapy, he will be discharged later today to the hospice care center. I offered to assist him in any which way I can in the future and have asked him to call me if he has any questions or concerns. Tyler Hood MD Jan 16, 2017 07:58
[2017-01-16 08:17] VITALS: BP 103/58; PULSE 91; RESP 20; TEMP 96.9; O2SAT 95
[2017-01-16] MEDS: ALBUTEROL SULFATE 90 MCG/ACT HFA 18 GM INHALER INH SCH (08:43)
[2017-01-16] MEDS: guaiFENesin E.R. 600 MG TAB PO SCH (08:43)
[2017-01-16] MEDS: SERTRALINE HCL 50 MG TAB PO SCH (08:44)
[2017-01-16] MEDS: DOCUSATE SODIUM 50 MG/SENNA 8.6 MG TAB PO SCH (08:44)
[2017-01-16] MEDS: FOLIC ACID 1 MG TAB PO SCH (08:44)
[2017-01-16] MEDS: APIXABAN 2.5 MG TABLET PO SCH (08:44)
[2017-01-16] MEDS: PANTOPRAZOLE SOD 40 MG DELAYED RELEASE TAB PO SCH (08:44)
[2017-01-16] MEDS: SODIUM CHLORIDE 0.9% FLUSH 10 ML FLUSH IV FLUSH SCH (11:28)
[2017-01-16 12:41] VITALS: BP 112/67; PULSE 90; RESP 20; TEMP 96.4; O2SAT 95
--- NOTE | 2017-01-16 12:49 | HHI.PR ---
Subjective Remarks did not see pt. was discharged to hospice care center Objective Objective Results - Vital Signs Date Time Temp Pulse Resp B/P Pulse Ox O2 Delivery O2 Flow Rate FiO2 01/16/17 12:41 96.4 90 20 112/67 95 01/16/17 08:57 95 Nasal Cannula 3.00 01/16/17 08:17 96.9 91 20 103/58 95 01/16/17 04:00 98.0 95 18 104/68 93 01/16/17 00:00 98.8 80 16 104/57 95 01/15/17 21:17 Nasal Cannula 3.00 01/15/17 20:00 99.8 100 18 107/68 92 01/15/17 12:53 97.4 90 19 98/66 95 I/O 01/15/17 01/15/17 01/15/17 01/16/17 01/16/17 01/16/17 07:00 15:00 23:00 07:00 15:00 23:00 Intake Total 1040 ml 660 ml 1200 ml Output Total 550 ml Balance 490 ml 660 ml 1200 ml Intake Oral 240 ml 660 ml IV Total 800 ml 1200 ml Output Urine Total 550 ml # Voids 1 Result Diagram: 01/16/17 0641 01/15/17 0627 Imaging Last Impressions Chest X-Ray 01/14/17 1125 Signed Impressions: Service Date/Time: Saturday, January 14, 2017 11:53 - CONCLUSION: Cavitary area in the right upper lung again seen with adjacent consolidation. New patchy right lung base opacity. Saurabh Reese MD CT Angiography 01/14/17 0000 Signed Impressions: Service Date/Time: Saturday, January 14, 2017 13:43 - CONCLUSION: 1. No evidence of pulmonary embolus. 2. Large right upper lung cavity new when compared to prior CT. This finding is seen on prior chest x-ray. 3. Increased surrounding right upper lung consolidation. Increased right middle lobe and lower lobe centrilobular opacities may represent endobronchial spread of infection. 4. Paratracheal mediastinal mass unchanged. Left posterior chest wall mass unchanged. 5. Patchy left lung opacity again noted. 6. Small bilateral pleural effusions. Saurabh Reese MD Other Results Laboratory Tests Test 01/16/17 06:41 White Blood Count 15.0 Red Blood Count 3.22 Hemoglobin 9.0 Hematocrit 27.8 Mean Corpuscular Volume 86.5 Mean Corpuscular Hemoglobin 28.0 Mean Corpuscular Hemoglobin 32.4 Concent Red Cell Distribution Width 19.5 Platelet Count 294 Mean Platelet Volume 7.4 Neutrophils (%) (Auto) 91.3 Lymphocytes (%) (Auto) 2.0 Monocytes (%) (Auto) 6.5 Eosinophils (%) (Auto) 0.1 Basophils (%) (Auto) 0.1 Neutrophils # (Auto) 13.7 Lymphocytes # (Auto) 0.3 Monocytes # (Auto) 1.0 Eosinophils # (Auto) 0.0 Basophils # (Auto) 0.0 CBC Comment DIFF FINAL Differential Comment Date/Time Procedure Status Source Growth 01/14/17 13:12 Aerobic Blood Culture - Preliminary Resulted Blood Peripheral NO GROWTH IN 2 DAYS 01/14/17 13:12 Anaerobic Blood Culture - Preliminary Resulted Blood Peripheral NO GROWTH IN 2 DAYS Physical Exam Physical Exam GENERAL: Thin built, chronically ill-appearing male. SKIN: No rashes, ecchymoses or lesions. Cool and dry. HEAD: Atraumatic. Normocephalic. No temporal or scalp tenderness. EYES: Pupils equal round and reactive. Extraocular motions intact. No scleral icterus. No injection or drainage. ENT: Nose without bleeding, purulent drainage or septal hematoma. Throat without erythema, tonsillar hypertrophy or exudate. Uvula midline. Airway patent. NECK: Trachea midline. No JVD or lymphadenopathy. Supple, nontender, no meningeal signs. CARDIOVASCULAR: Regular rate and rhythm without murmurs, gallops, or rubs. RESPIRATORY: Rhonchi to right lower base. GASTROINTESTINAL: Abdomen soft, non-tender, nondistended. No hepato-splenomegaly , or palpable masses. No guarding. MUSCULOSKELETAL: Extremities without clubbing, cyanosis, or edema. No joint tenderness, effusion, or edema noted. No calf tenderness. Negative Homans sign bilaterally. NEUROLOGICAL: Awake and alert. Cranial nerves II through XII intact. Motor and sensory grossly within normal limits. Five out of 5 muscle strength in all muscle groups. Normal speech. 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 Presented to the emergency room with increased cough, subjective fever, sputum, shortness of breath, chest pain. Chest x-ray completed showing possible new right lower lobe infiltrate. Elevated lactic acid with leukocytosis and tachycardia. Sepsis, possibly secondary to infectious process, pneumonia-right lower lobe infiltrate remains with significant leukocytosis and tachycardic. -Continue with normal saline at 100 an hour -lactic acid 1.1 -Continue with empiric antibiotics and follow cultures. Continue with supplemental oxygen at 2 L to keep sats greater than 92% Proventil inhaler 4 times a day Robitussin when necessary -Add Mucinex 600 mg po bid -pulmonology consult pending, Dr. Hood concerned that pt. poss has abscess and may need bronch or drainage. -Sputum culture pending Right lung adenocarcinoma with metastasis. Chemotherapy [address] Hood has been consulted, input appreciated. Consulted pulm and palliative care. Pt. with poss abscess. SVC syndrome, on Eliquis -Continue Eliquis Depression and anxiety Continue Zoloft. Chronic pain continue pain med regimen Continue with Eliquis for DVT prophylaxis Protonix for GI prophylaxis Patient's condition guarded. Repeat labs in am D/W RN D/W Dr. Velazquez D/W pt. This patient was seen by myself and Dr. Velazquez, this note is written on her behalf Problem Qualifiers (1) Sepsis: Qualified Code: A41.9 - Sepsis, due to unspecified organism (2) Pneumonia: Qualified Code: J18.1 - Pneumonia of right lower lobe due to infectious organism (3) Metastatic lung cancer (metastasis from lung to other site): Qualified Code: C34.91 - Metastatic lung cancer (metastasis from lung to other site), right (4) Chronic pain: Qualified Code: G89.3 - Chronic pain due to neoplasm Dariela Michaels Jan 16, 2017 12:49
--- NOTE | 2017-01-16 20:43 | HHI.DS ---
Discharge Summary Admission Date Jan 14, 2017 at 14:00 Discharge Date: Jan 16, 2017 Admitting Diagnosis pneumonia, cancer (1) Sepsis (2) Pneumonia (3) Metastatic lung cancer (metastasis from lung to other site) (4) Anxiety and depression (5) Chronic pain (6) SVC syndrome (7) S/P HEAD TRIMMER shunt (8) Adenocarcinoma (9) Bony metastasis CBC/BMP: 01/16/17 0641 01/15/17 0627 Significant Findings Laboratory Tests Test 01/14/17 01/15/17 01/16/17 12:00 06:27 06:41 White Blood Count 21.8 TH/MM3 23.6 TH/MM3 15.0 TH/MM3 (4.0-11.0) (4.0-11.0) (4.0-11.0) Red Blood Count 3.91 MIL/MM3 3.30 MIL/MM3 3.22 MIL/MM3 (4.50-5.90) (4.50-5.90) (4.50-5.90) Hemoglobin 11.4 GM/DL 9.3 GM/DL 9.0 GM/DL (13.0-17.0) (13.0-17.0) (13.0-17.0) Hematocrit 33.9 % 28.4 % 27.8 % (39.0-51.0) (39.0-51.0) (39.0-51.0) Red Cell Distribution Width 19.6 % 19.2 % 19.5 % (11.6-17.2) (11.6-17.2) (11.6-17.2) Neutrophils (%) (Auto) 90.2 % 93.9 % 91.3 % (16.0-70.0) (16.0-70.0) (16.0-70.0) Lymphocytes (%) (Auto) 2.5 % 1.7 % 2.0 % (9.0-44.0) (9.0-44.0) (9.0-44.0) Neutrophils # (Auto) 19.6 TH/MM3 22.1 TH/MM3 13.7 TH/MM3 (1.8-7.7) (1.8-7.7) (1.8-7.7) Lymphocytes # (Auto) 0.5 TH/MM3 0.4 TH/MM3 0.3 TH/MM3 (1.0-4.8) (1.0-4.8) (1.0-4.8) Monocytes # (Auto) 1.6 TH/MM3 1.0 TH/MM3 1.0 TH/MM3 (0-0.9) (0-0.9) (0-0.9) Neutrophils % (Manual) 76 % (16-70) Band Neutrophils % 13 % (0-6) Lymphocytes % 3 % (9-44) Neutrophils # (Manual) 19.4 TH/MM3 (1.8-7.7) Toxic Granulation 1+ (NORMAL) Prothrombin Time 12.3 SEC (9.8-11.6) Activated Partial 38.8 SEC Thromboplast Time (24.3-30.1) Sodium Level 134 MEQ/L 133 MEQ/L (136-145) (136-145) Chloride Level 96 MEQ/L (98-107) Random Glucose 68 MG/DL 72 MG/DL (74-106) (74-106) Lactic Acid Level 2.5 mmol/L (0.4-2.0) Total Creatine Kinase 22 U/L (39-308) Troponin I LESS THAN 0.02 NG/ML (0.02-0.05) Creatinine 0.42 MG/DL (0.60-1.30) Calcium Level 7.8 MG/DL (8.5-10.1) Imaging Last Impressions Chest X-Ray 01/14/17 1125 Signed Impressions: Service Date/Time: Saturday, January 14, 2017 11:53 - CONCLUSION: Cavitary area in the right upper lung again seen with adjacent consolidation. New patchy right lung base opacity. Saurabh Reese MD CT Angiography 01/14/17 0000 Signed Impressions: Service Date/Time: Saturday, January 14, 2017 13:43 - CONCLUSION: 1. No evidence of pulmonary embolus. 2. Large right upper lung cavity new when compared to prior CT. This finding is seen on prior chest x-ray. 3. Increased surrounding right upper lung consolidation. Increased right middle lobe and lower lobe centrilobular opacities may represent endobronchial spread of infection. 4. Paratracheal mediastinal mass unchanged. Left posterior chest wall mass unchanged. 5. Patchy left lung opacity again noted. 6. Small bilateral pleural effusions. Saurabh Reese MD Hospital Course This is an unfortunate 31-year-old white male who was diagnosed with right lung adenocarcinoma mediastinal adenopathy and SVC syndrome with near complete of impression of right pulmonary artery and 05/2016. Patient had an initial pericardiocentesis and pericarditis and was found to have bone metastases. Patient had initiation of chemoradiation and follows up with Dr. Hood. He's had multiple admissions for right pneumothorax with chest tube was necessary, pleural effusion and thoracentesis. Patient was recently admitted from 01/05 to 01/08 for neutropenic fever and nausea. Cultures were negative. Patient presented back to the emergency room today with complaints of shortness of breath, increased cough with sputum that is white to brown in color. Subjective fever, chills. He has chest pain which is chronic. His last chemotherapy was 3 weeks ago. He has not seen his oncologist her primary care physician. Patient was evaluated and laboratory workup was completed. CBC remarkable for leukocytosis, WBC 21.8, neutrophil 19.6, bandemia. Lactic acid was 2.5. Mild hyponatremia with sodium of 134. CTA was negative for pulmonary embolus. Large right upper lobe cavity U1 compared to prior CT this finding was seen on prior chest x-ray. Increased surrounding right upper lobe consolidation. Increased right middle lobe and lower lobe centrilobular opacities may represent endobronchial spread of infection. Paratracheal mediastinal mass unchanged. Left posterior chest wall mass unchanged. Patchy left lung opacity again noted. Small bilateral pleural effusions. Chest x-ray showed cavitary area in the right upper lung with adjacent consolidation. There was also new patchy right lung base opacity. Cultures were obtained, patient was started on empiric antibiotics. He received fluid resuscitation. He had chronic pain mainly over the right chest wall. Patient was admitted for further evaluation and treatment for: (1) Sepsis (2) Pneumonia (3) Metastatic lung cancer (metastasis from lung to other site) (4) Anxiety and depression (5) Chronic pain (6) SVC syndrome (7) S/P HEAD TRIMMER shunt (8) Adenocarcinoma (9) Bony metastasis During the course of the hospitalization the following took place: 31-year-old male patient with diagnosis of right lung adenocarcinoma with metastases to the bone. Presented to the emergency room with increased cough, subjective fever, sputum, shortness of breath, chest pain. Chest x-ray completed showing possible new right lower lobe infiltrate. Elevated lactic acid with leukocytosis and tachycardia. Sepsis, possibly secondary to infectious process, pneumonia-right lower lobe infiltrate remains with significant leukocytosis and tachycardic. -Put on normal saline at 100 an hour -lactic acid 1.1 -Continue with empiric antibiotics and followed cultures. Continue with supplemental oxygen at 2 L to keep sats greater than 92% Proventil inhaler 4 times a day Robitussin when necessary -Added Mucinex 600 mg po bid -pulmonology consult pending, Dr. Hood concerned that pt. poss has abscess and may need bronch or drainage. -Sputum culture pending -cough improved some. Remained on oxygen. Right lung adenocarcinoma with metastasis. Chemotherapy [address] Hood was consulted, input appreciated. Consulted pulm and palliative care. Pt. with poss abscess. SVC syndrome, on Eliquis -Continued Eliquis Depression and anxiety Continued Zoloft. Chronic pain continued pain med regimen Palliative care met with patient, goals of care were discussed and patient decided to go to care center under hospice services. He requested a DNR. Hospice evaluated patient Pulmonology consultation was canceled as there was no need for further workup. Patient was discharged to hospice care center. Pt Condition on Discharge: Guarded Discharge Disposition: Hospice/Med Facility Discharge Instructions DIET: Follow Instructions for: As Tolerated, No Restrictions Activities you can perform: Weight Bearing as Dariela Beltre Jan 16, 2017 20:43
== END 2017-01-16 12:23 | disposition hospice, inpatient (51) | DRG 871 ==
LOC: NEPE 10:45 → NEDA 14:00 → HOCB 16:50
PROVIDERS: ADMIT Internal Medicine; ATTEND Internal Medicine
DX: A41.9 Sepsis, unspecified organism (principal); J18.9 Pneumonia, unspecified organism; R64 Cachexia; C79.51 Secondary malignant neoplasm of bone; J44.0 Chronic obstructive pulmonary disease with (acute) lower respiratory infection; E87.1 Hypo-osmolality and hyponatremia; I87.1 Compression of vein; Z85.118 Personal history of other malignant neoplasm of bronchus and lung; D64.9 Anemia, unspecified; G89.3 Neoplasm related pain (acute) (chronic); Q03.9 Congenital hydrocephalus, unspecified; R65.20 Severe sepsis without septic shock; Z51.5 Encounter for palliative care; Z66 Do not resuscitate; F41.8 Other specified anxiety disorders; Z87.891 Personal history of nicotine dependence; Z92.21 Personal history of antineoplastic chemotherapy; Z92.3 Personal history of irradiation; Z98.2 Presence of cerebrospinal fluid drainage device
CPT/HCPCS: 71010; 71275; 80048; 82550; 83605; 83735; 84484; 85007; 85025; 85027; 85610; 85730; 87040; 93005; 94640; 94664; 96365; 96375; J0456; J0696; J2270; J2405; J2543; J7030; J7050; Q9967